=== PATIENT | female | born 1960 | race Caucasian/White ===

== ENCOUNTER 2017-09-04 17:21 | Emergency (ER) | END 2017-09-04 18:15 | disposition home or self-care (01) ==

== ENCOUNTER 2018-08-02 13:58 | Emergency (ER) | payer OTHER ==
[~2018-08-02] VITALS: Ht 147.3 cm; Wt 40.8 kg
[~2018-08-02 13:58] MED LIST: ALBIPROI INH; ALBU90OI INH; AMOCLA875 PO; AZIT500 PO; BACL10; BACL10 PO; BACL20 PO; CLON2 PO; CYCL10 PO; Clotrimazole15 GM TP; HYDACE10B PO; LIDO5TP TOP; LORA10 PO; MUPI2TC TOP; NAPR500; NAPR500 PO; NAPR550 PO; Norco 7.5-3251 EACH PO; PRED20 PO; PROM25 PO; Percocet 5-3251 EACH PO; Robaxin500 MG PO; SOMA350 MG PO; VICODIN HP 10-1 EACH PO; [UNRECOGNIZED DRUG - REMARK]; [UNRECOGNIZED DRUG - REMARK]
[2018-08-02 14:53] LABS: BASOPHILS ABSOLUTE AUTO 0.01 K/mm3 (0.00-0.23); BASOPHILS PERCENT AUTO 0 % (0-2); EOSINOPHILS PERCENT AUTO 0 % (0-6); Hematocrit 41.7 % (33.0-51.0); IMMATURE GRAN ABSOLUTE AUTO 0.06 K/mm3 (0.00-0.10); IMMATURE GRAN PERCENT AUTO 1 % (0-1); LYMPHOCYTES ABSOLUTE AUTO 0.81 K/mm3 (0.84-5.20); LYMPHOCYTES PERCENT AUTO 7 % (21-46); MONOCYTES ABSOLUTE AUTO 0.18 K/mm3 (0.16-1.47); MONOCYTES PERCENT AUTO 2 % (4-13); Mean Corpuscular HGB 31.9 pg (26.0-34.0); Mean Corpuscular HGB Conc 33.6 g/dL (31.5-36.5); Mean Platelet Volume 10.7 fL (9.1-12.4); NEUTROPHILS ABSOLUTE AUTO 10.33 K/mm3 (1.96-9.15); NEUTROPHILS PERCENT AUTO 91 % (41-73); Platelet Count 293 K/mm3 (150-400); RDW Coefficient Variation 11.9 % (11.7-14.2); RDW Standard Deviation 41.4 fL (35.1-46.3); Red Blood Cell Count 4.39 M/mm3 (3.80-5.20); White Blood Cell Count 11.39 K/mm3 (4.00-11.30)
[2018-08-02 14:54] LABS: Mean Corpuscular Volume 95 fL (80-100)
[2018-08-02 15:20] LABS: Alanine Aminotransfer (ALT/SGP 18 U/L (12-78); Albumin, Blood 3.5 g/dL (3.4-5.0); Albumin/Globulin Ratio 0.9 (0.8-1.8); Alk Phos 66 U/L (50-136); Anion Gap 8 mmol/L (6-16); Aspartate Aminotrans (AST/SGOT 19 U/L (12-37); Bilirubin, Total 0.4 mg/dL (0.1-1.0); Blood Urea Nitrogen 9 mg/dL (8-24); Bun/Creatinine Ratio 14.4 (12.0-20.0); CO2, Blood 27 mmol/L (21-32); Calcium, Blood 8.7 mg/dL (8.5-10.1); Chloride, Blood 106 mmol/L (98-108); Creatinine, Blood 0.63 mg/dL (0.40-1.00); Globulin, Blood 3.7 g/dL (2.2-4.0); Glomerular Filtration Rate >60 (60-); Glucose, Blood 112 mg/dL (70-99); Potassium, Blood 3.6 mmol/L (3.5-5.5); Sodium, Blood 141 mmol/L (136-145); Total Protein, Blood 7.2 g/dL (6.4-8.2)
[2018-08-02 16:00] LABS: Source, Urine Clean Catch
[2018-08-02 16:07] LABS: Bilirubin, Urine Neg (Neg); Blood, Urine 2+ (Neg); Glucose Qualitative, Urine Neg (Neg); Ketones, Urine Neg (Neg); Leukocyte Esterase, Urine 2+ (Neg); Nitrite, Urine Neg (Neg); Protein, Urine Neg (Neg); Specific Gravity, Urine 1.015 (1.003-1.022); Urobilinogen, Urine NORM (Normal)
[2018-08-02 16:19] LABS: Appearance, Urine Clear (Clear); Color, Urine Yellow (P-Yellow)
[2018-08-02 16:20] LABS: Bacteria Few /hpf; Squamous Epithelial Cells Few /hpf (Few); White Blood Cells, Urine 25-50 /hpf (0-5)
[2018-08-02] MEDS ORDERED: Norco 5-325 Ta1 EACH PO (17:55)
== END 2018-08-02 18:06 | disposition home or self-care (01) ==
LOC: ER 13:58
PROVIDERS: Physician Assistant
DX: R07.81 Pleurodynia (principal); Z88.5 Allergy status to narcotic agent; Z88.8 Allergy status to other drugs, medicaments and biological substances; Z79.899 Other long term (current) drug therapy; J44.9 Chronic obstructive pulmonary disease, unspecified; F41.9 Anxiety disorder, unspecified; F17.210 Nicotine dependence, cigarettes, uncomplicated
CPT/HCPCS: 36415; 76705; 80053; 81001; 85025; 87077; 87086; 87186; 99284-25; A9270-GY

== ENCOUNTER 2018-12-12 17:08 | Emergency (ER) | payer OTHER ==
[~2018-12-12] VITALS: Ht 162.6 cm; Wt 44.5 kg
[~2018-12-12 17:08] MED LIST changes: +Norco 5-325 Ta1 EACH PO
== END 2018-12-12 19:37 | disposition home or self-care (01) ==
LOC: ER 17:08
DX: S61.012A Laceration without foreign body of left thumb without damage to nail, initial encounter (principal); J44.9 Chronic obstructive pulmonary disease, unspecified; F17.210 Nicotine dependence, cigarettes, uncomplicated; Z88.5 Allergy status to narcotic agent; Z88.8 Allergy status to other drugs, medicaments and biological substances; Z79.899 Other long term (current) drug therapy; Z79.1 Long term (current) use of non-steroidal anti-inflammatories (NSAID); W22.8XXA Striking against or struck by other objects, initial encounter
CPT/HCPCS: 12002; 73130; 90471; 90714; 99283-25

== ENCOUNTER 2020-01-16 10:55 | Day surgery (SDC) | payer OTHER ==
[~2020-01-16] VITALS: Ht 64 cm; Wt 46.0 kg
--- NOTE | 2020-01-16 15:06 | NUR ---
01/16/20 1506 SHAKEEL LIZARRAGA IVDC AT 1500 WITH 800 ML LEFT AD DC ORSC.RDS
== END 2020-01-16 15:02 | disposition home or self-care (01) ==
LOC: ORSCSDS 10:55
PROVIDERS: Orthopaedic Surgery
PROC: 0PSH04Z Reposition Right Radius with Internal Fixation Device, Open Approach (ICD-10-PCS; principal; 2020-01-16 13:15)
DX: S52.571A Other intraarticular fracture of lower end of right radius, initial encounter for closed fracture (principal); I10 Essential (primary) hypertension; J44.9 Chronic obstructive pulmonary disease, unspecified; E03.9 Hypothyroidism, unspecified; G40.909 Epilepsy, unspecified, not intractable, without status epilepticus; F17.210 Nicotine dependence, cigarettes, uncomplicated; Z79.899 Other long term (current) drug therapy
CPT/HCPCS: J0171; J0330; J0690; J1100; J2250; J2405; J2704; J3010; J7120

== ENCOUNTER → 2020-02-17 | Outpatient (CLI) | payer OTHER | END | disposition home or self-care (01) | LOC: LAB SHORT 07:09 → PLD 07:09 | DX: R22.1 Localized swelling, mass and lump, neck (principal) | CPT/HCPCS: 88173 ==

== ENCOUNTER → 2020-04-07 | Outpatient (CLI) | payer OTHER ==
[2020-04-13 14:11] LABS: HPV 16 Negative (Negative); HPV 18 Negative (Negative); HPV OTHER HR TYPES Positive (Negative)
== END | disposition home or self-care (01) ==
LOC: LAB 16:34
PROVIDERS: Student in an Organized Health Care Education/Training Program
DX: Z01.419 Encounter for gynecological examination (general) (routine) without abnormal findings (principal)
CPT/HCPCS: 87624; 87625; G0145

== ENCOUNTER → 2020-10-18 | Outpatient (CLI) | payer OTHER | LOC: LAB 14:31 → LAB SHORT 14:31 | PROVIDERS: Family Medicine | DX: G89.4 Chronic pain syndrome (principal) | CPT/HCPCS: G0480 ==

== ENCOUNTER 2021-03-25 12:17 | Inpatient (IN) | payer OTHER ==
[~2021-03-25] VITALS: Ht 162.6 cm; Wt 47.3 kg
[~2021-03-25 12:17] MED LIST changes: -CLON2 PO
[2021-03-25 13:20] LABS: BASOPHILS ABSOLUTE AUTO 0.08 K/mm3 (0.00-0.23); BASOPHILS PERCENT AUTO 0 % (0-2); EOSINOPHILS ABSOLUTE AUTO 0.02 K/mm3 (0.00-0.68); EOSINOPHILS PERCENT AUTO 0 % (0-6); Hemoglobin 8.6 g/dL (11.5-16.0); IMMATURE GRAN ABSOLUTE AUTO 0.23 K/mm3 (0.00-0.10); IMMATURE GRAN PERCENT AUTO 1 % (0-1); LYMPHOCYTES ABSOLUTE AUTO 1.52 K/mm3 (0.84-5.20); LYMPHOCYTES PERCENT AUTO 7 % (21-46); MONOCYTES ABSOLUTE AUTO 1.09 K/mm3 (0.16-1.47); MONOCYTES PERCENT AUTO 5 % (4-13); Mean Corpuscular HGB 26.7 pg (26.0-34.0); Mean Corpuscular HGB Conc 33.1 g/dL (31.5-36.5); Mean Corpuscular Volume 81 fL (80-100); Mean Platelet Volume 9.2 fL (9.1-12.4); NEUTROPHILS ABSOLUTE AUTO 20.21 K/mm3 (1.96-9.15); NEUTROPHILS PERCENT AUTO 87 % (41-73); Platelet Count 492 K/mm3 (150-400); RDW Coefficient Variation 16.3 % (11.7-14.2); Red Blood Cell Count 3.22 M/mm3 (3.80-5.20); White Blood Cell Count 23.15 K/mm3 (4.00-11.30)
[2021-03-25 13:36] LABS: Albumin, Blood 1.4 g/dL (3.4-5.0); Albumin/Globulin Ratio 0.2 (0.8-1.8); Bilirubin, Total 0.9 mg/dL (0.1-1.0); Bun/Creatinine Ratio 7.9 (12.0-20.0); Calcium, Blood 7.8 mg/dL (8.5-10.1); Creatinine, Blood 3.68 mg/dL (0.40-1.00); Potassium, Blood 3.8 mmol/L (3.5-5.5); Total Protein, Blood 7.4 g/dL (6.4-8.2)
[2021-03-25 13:38] LABS: International Normalized Ratio 1.23; Prothrombin Time Results 12.7 Sec (9.7-11.5)
[2021-03-25 14:08] LABS: Source, Urine Catheter
[2021-03-25 14:20] LABS: Appearance, Urine Cloudy (Clear); Bilirubin, Urine Neg (Neg); Blood, Urine 5+ (Neg); Color, Urine Amber (P-Yellow); Glucose Qualitative, Urine Neg (Neg); Ketones, Urine Neg (Neg); Leukocyte Esterase, Urine 2+ (Neg); Nitrite, Urine Pos (Neg); Protein, Urine 3+ (Neg); Specific Gravity, Urine 1.015 (1.003-1.022); Urobilinogen, Urine 2+ (Normal)
[2021-03-25 14:32] LABS: Amorphous Light (0-Heavy); Red Blood Cells, Urine TNTC /hpf (0-2)
[2021-03-25 14:33] LABS: Bacteria Many /hpf; Squamous Epithelial Cells Many /hpf (Few)
[2021-03-25 14:36] LABS: U Amphetamine Screen Not Detected; U Barbituate Screen Not Detected; U Benzodiazapine Screen DETECTED; U Buprenorphine Screen Not Detected; U Cannabinoids Screen DETECTED; U Cocaine Screen Not Detected; U Methadone Screen Not Detected; U Methamphetamine Screen Not Detected; U Opiates Screen Not Detected; U Oxycodone Screen Not Detected; U Phencyclidine Screen Not Detected; U Propoxyphene Screen Not Detected
[2021-03-25 14:37] LABS: Influenza A, PCR NEGATIVE (NEGATIVE); Influenza B, PCR NEGATIVE (NEGATIVE); Resp Syncytial Virus, PCR NEGATIVE (NEGATIVE); SARS-Cov-2 (COVID-19) PCR, MMC NEGATIVE (NEGATIVE)
--- NOTE | 2021-03-25 21:56 | NUR ---
ADMITTED 60 FEMALE WITH DX OF PNEUMONIA. UPON VISUAL ASSESSMENT PT POINTED OUT "SORES" OF BILAT KNEES AND HER RIGHT ELBOW. CONSENTED TO PHOTIGRAPHING THEM, SEE PHOTOS IN CHART. ORIENTED TO USE OF CALL LIGHT. CALL LIGHT IN REACH
--- NOTE | 2021-03-26 02:46 | NUR ---
PT PLACED ON 2L OF O2. OXYGEN SATURATION DURING SLEEP WAS 87% NOW UP TO 92-93. PT HAS HX OF COPD.
[2021-03-26 04:51] LABS: BASOPHILS ABSOLUTE AUTO 0.05 K/mm3 (0.00-0.23); BASOPHILS PERCENT AUTO 0 % (0-2); EOSINOPHILS ABSOLUTE AUTO 0.16 K/mm3 (0.00-0.68); EOSINOPHILS PERCENT AUTO 1 % (0-6); Hematocrit 22.4 % (33.0-51.0); Hemoglobin 7.2 g/dL (11.5-16.0); IMMATURE GRAN ABSOLUTE AUTO 0.15 K/mm3 (0.00-0.10); IMMATURE GRAN PERCENT AUTO 1 % (0-1); LYMPHOCYTES PERCENT AUTO 7 % (21-46); MONOCYTES ABSOLUTE AUTO 1.01 K/mm3 (0.16-1.47); MONOCYTES PERCENT AUTO 6 % (4-13); Mean Corpuscular HGB 26.1 pg (26.0-34.0); Mean Corpuscular HGB Conc 32.1 g/dL (31.5-36.5); Mean Corpuscular Volume 81 fL (80-100); Mean Platelet Volume 9.2 fL (9.1-12.4); NEUTROPHILS ABSOLUTE AUTO 15.48 K/mm3 (1.96-9.15); NEUTROPHILS PERCENT AUTO 86 % (41-73); Platelet Count 383 K/mm3 (150-400); RDW Coefficient Variation 16.3 % (11.7-14.2); RDW Standard Deviation 47.8 fL (35.1-46.3); Red Blood Cell Count 2.76 M/mm3 (3.80-5.20); White Blood Cell Count 18.05 K/mm3 (4.00-11.30)
[2021-03-26 06:09] LABS: Anion Gap 11 mmol/L (6-16); Blood Urea Nitrogen 32 mg/dL (8-24); Bun/Creatinine Ratio 8.3 (12.0-20.0); CO2, Blood 26 mmol/L (21-32); Calcium, Blood 7.5 mg/dL (8.5-10.1); Chloride, Blood 97 mmol/L (98-108); Creatinine, Blood 3.85 mg/dL (0.40-1.00); Ferritin, Serum 193 ng/mL (8-252); Glomerular Filtration Rate 12 (60-); Glucose, Blood 144 mg/dL (70-99); Iron Serum 8 ug/dL (50-170); Percent Saturation 7.7 % (15.0-50.0); Potassium, Blood 3.5 mmol/L (3.5-5.5); Sodium, Blood 134 mmol/L (136-145); Total Iron Binding Capacity 104 ug/dL (250-450); Vancomycin, Random 16.6 ug/mL
--- NOTE | 2021-03-26 06:09 | NUR ---
PT ON 2L O2. DESATURATES WITH EXERTION. PT ADMITTED WITH PNEUMONIA. HX COPD. PT ON CONTINUOUS BIOX AND TELE. PT GIVEN SNACKS THROUGHOUT THE NIGHT. PT HAS SLEPT OFF AND ON TONIGHT. CALL LIGHT WITHIN REACH. LR RUNNING AT 125/HR. WILL CONTINUE TO MONITOR. PT INDEPENDENT TO BEDSIDE COMMODE.
--- NOTE | 2021-03-26 11:47 | NUR ---
ECHOCARDIOGRAM COMPLETE
--- NOTE | 2021-03-26 17:15 | NUR ---
SUMMARY PT RESTING QUIETLY IN BED, WAKES EASILY, PT HAS BEEN UP TO THE COMMODE WITH 1P ASSIST, OCC INCONTINENT OF STOOL, FRIEND IN TO VISIT, PT C/O BACK PAIN, DECLINED MEDS, GIVEN HEATING PAD, GI AND NEPHRO HAVE BEEN IN TO SEE THE PT, PLAN FOR UPPER ENDO TOMORROW, VSS, NO COMPLAINTS, WILL CONT TO MONITOR
--- NOTE | 2021-03-27 03:42 | NUR ---
SHIFT SUMMARY PT NOW ON 3.5L O2 AND CONTINUOUS BIOX IS 93% PT HISTORY OF COPD AND PNEUMONIA. PT HAS WET COUGH WITH SPUTUM. PT USING BEDSIDE COMMODE WITH ASSISTANCE DUE TO ALL THE CORDS ATTACHED TO HER. CALL LIGHT WITHIN REACH AND WILL CONTINUE TO MONITOR. PT GIVEN TWO NEBULIZERS ON THIS SHIFT.
[2021-03-27 04:55] LABS: BASOPHILS ABSOLUTE AUTO 0.05 K/mm3 (0.00-0.23); BASOPHILS PERCENT AUTO 0 % (0-2); EOSINOPHILS ABSOLUTE AUTO 0.25 K/mm3 (0.00-0.68); EOSINOPHILS PERCENT AUTO 1 % (0-6); Hematocrit 20.9 % (33.0-51.0); Hemoglobin 6.9 g/dL (11.5-16.0); IMMATURE GRAN PERCENT AUTO 1 % (0-1); LYMPHOCYTES ABSOLUTE AUTO 1.29 K/mm3 (0.84-5.20); LYMPHOCYTES PERCENT AUTO 7 % (21-46); MONOCYTES ABSOLUTE AUTO 1.17 K/mm3 (0.16-1.47); MONOCYTES PERCENT AUTO 7 % (4-13); Mean Corpuscular HGB 26.8 pg (26.0-34.0); Mean Corpuscular Volume 81 fL (80-100); Mean Platelet Volume 9.4 fL (9.1-12.4); NEUTROPHILS ABSOLUTE AUTO 14.65 K/mm3 (1.96-9.15); NEUTROPHILS PERCENT AUTO 83 % (41-73); Platelet Count 374 K/mm3 (150-400); RDW Coefficient Variation 16.3 % (11.7-14.2); RDW Standard Deviation 48.4 fL (35.1-46.3); Red Blood Cell Count 2.57 M/mm3 (3.80-5.20); White Blood Cell Count 17.61 K/mm3 (4.00-11.30)
[2021-03-27 05:40] LABS: Albumin, Blood 0.9 g/dL (3.4-5.0); Anion Gap 10 mmol/L (6-16); Blood Urea Nitrogen 37 mg/dL (8-24); Bun/Creatinine Ratio 8.5 (12.0-20.0); CO2, Blood 25 mmol/L (21-32); Calcium, Blood 7.8 mg/dL (8.5-10.1); Chloride, Blood 98 mmol/L (98-108); Creatinine, Blood 4.33 mg/dL (0.40-1.00); Glomerular Filtration Rate 10 (60-); Glucose, Blood 102 mg/dL (70-99); Magnesium, Blood 1.3 mg/dL (1.6-2.4); Phosphorus, Blood 7.3 mg/dL (2.5-4.9); Potassium, Blood 4.2 mmol/L (3.5-5.5); Sodium, Blood 133 mmol/L (136-145); Vancomycin, Random 25.5 ug/mL
[2021-03-27 13:10] LABS: Hematocrit 25.5 % (33.0-51.0); Hemoglobin 8.4 g/dL (11.5-16.0)
--- NOTE | 2021-03-27 17:38 | NUR ---
SUMMARY PT SITTING UP IN BED EATING DINNER, PT HAS BEEN COOPERATIVE WITH CARE, VERY RESTLESS AT TIMES, PT 1P ASSIST UP TO THE BEDSIDE COMMODE, PT DID RECIEVE 1 UNIT OF BLOOD TODAY, ADDISON WELL, DAUGHTER CAME IN TO VISIT, VSS, NO COMPLAINTS, WILL CONT TO MONITOR
--- NOTE | 2021-03-28 03:38 | NUR ---
SHIFT SUMMARY PLAN FOR UPPER ENDO TODAY. PT NPO AFTER MIDNIGHT. PT ASKS FOR SOMETHING TO DRINK, OFFERED LEMON SWABS. PT OUT OF BED EARLIER WITHOUT WAITING FOR ASSISTANCE AND PULLED OUT IV. NEW IV PLACED BY JUANCARLOS MOCTEZUMA. PT NEEDS TO BE REMINDED TO KEEP OXYGEN IN HER NARES AND TO BE CAREFUL OF HER TUBING. PT ON TELE AND CONTINUOS BIOX. SINUS RHYTHM RATE OF 98. PT UPSET THAT SHE IS NOT ABLE TO HAVE ANYTHING TO EAT OR DRINK UNTIL AFTER HER PROCEDURE TODAY. LR RUNNING AT 75/HR. PT VOMITED A FEW TIMES DURING THE BEGINNING OF THE SHIFT, BUT HAS SINCE STOPPED. PT GIVEN ZOFRAN AT 1800. CALL LIGHT IS WITHIN REACH AND PT WILL CONTINUE TO BE MONITORED.
[2021-03-28 04:37] LABS: Hematocrit 24.7 % (33.0-51.0); Hemoglobin 8.1 g/dL (11.5-16.0)
[2021-03-28 05:16] LABS: Anion Gap 10 mmol/L (6-16); Blood Urea Nitrogen 42 mg/dL (8-24); Bun/Creatinine Ratio 9.4 (12.0-20.0); CO2, Blood 24 mmol/L (21-32); Calcium, Blood 7.9 mg/dL (8.5-10.1); Chloride, Blood 96 mmol/L (98-108); Creatinine, Blood 4.45 mg/dL (0.40-1.00); Glomerular Filtration Rate 10 (60-); Glucose, Blood 130 mg/dL (70-99); Magnesium, Blood 1.4 mg/dL (1.6-2.4); Sodium, Blood 130 mmol/L (136-145)
[2021-03-28 05:18] LABS: Phosphorus, Blood 8.3 mg/dL (2.5-4.9)
[2021-03-28 07:10] LABS: HIV SCREEN 4TH GENERATION WRFX Non Reactive (Non Reactive)
--- NOTE | 2021-03-28 15:13 | NUR ---
03/28/21 1513 Sahara Sanchez MONITORS PLACED. SEE ANESTHESIA RECORD.
--- NOTE | 2021-03-28 16:09 | NUR ---
PT ARRIVED BACK FROM DAY SURGERY AT APPROXIMATELY 1600. PT ALERT AND ORIENTED. SITTING UP IN BED CALLING HER DAUGHTER. PLEASANT. WILL CONTINUE TO MONITOR.
--- NOTE | 2021-03-28 19:33 | NUR ---
SHIFT SUMMARY PT HAD AN EGD TODAY WITH DR. LIU TO ATTEMPT TO DETERMINE THE REASON FOR BLOODY STOOLS. PT HAS BEEN ANXIOUS/IRRITABLE T/O THE DAY. SHE FREQUENTLY HAS DIFFICULTY MANAGING HER LINES AND TUBES. PT ENCOURAGED AND EDUCATED TO CALL FOR ASSISTANCE. PT PULLS OFF HER O2 FREQUENTLY AND HER O2 SATURATIONS DROP TO MID 80'S, SHE RECOVERS QUICKLY ONCE O2 IS REPLACED. PT IS A SBA TO THE BSC TO ASSIST WITH LINES AND TUBES. VSS. REPORT GIVEN TO CHRISTIANO BAUER.
--- NOTE | 2021-03-29 04:51 | NUR ---
PATIENT HAS BEEN IMPULSIVE ALL SHIFT. a%O X4 BUT CONFUSED AT TIMES. PATIENT TEMOVED TELEMETRY, IV LINE, PULSE OX AND O2. REPEATEDLY SET OFF BED ALARM. WAS VERBALLY AGGRESSIVE TOWARDS NURSING STAFF USING EXPLICATIVES. PATIENT ASKED FOR MEDICATION FOR A HEADACHE AND REFUSED THE TYLENOL SHE HAD AVAILABLE. ALSO REFUSED HER 0600 PROTONIX.
[2021-03-29 05:38] LABS: Hematocrit 25.5 % (33.0-51.0); Hemoglobin 8.2 g/dL (11.5-16.0)
[2021-03-29 06:30] LABS: Albumin, Blood 1.2 g/dL (3.4-5.0); Anion Gap 13 mmol/L (6-16); Blood Urea Nitrogen 50 mg/dL (8-24); Bun/Creatinine Ratio 9.8 (12.0-20.0); CO2, Blood 21 mmol/L (21-32); Calcium, Blood 8.2 mg/dL (8.5-10.1); Chloride, Blood 97 mmol/L (98-108); Creatinine, Blood 5.12 mg/dL (0.40-1.00); Glomerular Filtration Rate 9 (60-); Glucose, Blood 109 mg/dL (70-99); Magnesium, Blood 2.4 mg/dL (1.6-2.4); Potassium, Blood 5.8 mmol/L (3.5-5.5); Sodium, Blood 131 mmol/L (136-145)
[2021-03-29 06:56] LABS: Phosphorus, Blood 9.2 mg/dL (2.5-4.9)
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
--- NOTE | 2021-03-30 05:02 | NUR ---
A&OX4, ANXIOUS AND IMPULSIVE, CAN BE CANTANKEROUS WITH STAFF. PRODUCTIVE COUGH PRODUCING PINK TINGED SPUTUM, 4L OF 02, MORGAN COARSE CRACKELS AND INSPIRATORY WHEEZES. PRN BREATHING TREATMENTS GIVEN BY RT. NS@50. 24 HOUR URINE COLLECTION STARTED AT 0135AM. PRN TYLENOL AND KPAD FOR COMPLAINTS OF HEADACHE AND BACK PAIN. KLONOPIN FOR ANXIETY.
[2021-03-30 09:11] LABS: HCV LOG10 5.736 (.); HEPATITIS C QUANTITATION 544000 IU/mL (.)
[2021-03-30 13:32] LABS: Bun/Creatinine Ratio 12.4 (12.0-20.0); Calcium, Blood 8.5 mg/dL (8.5-10.1); Creatinine, Blood 5.17 mg/dL (0.40-1.00); Potassium, Blood 4.9 mmol/L (3.5-5.5)
--- NOTE | 2021-03-30 15:27 | NUR ---
PT STATES NOT GETTING CYCLOBENZAPRINE. USUALLY TAKES TWICE DAILY. PT STATES DOES NOT HAVE ALLERGY, DOES NOT KNOCK HER OUT. CALLED DR MATHIS. ORDERS GIVEN
--- NOTE | 2021-03-30 18:43 | NUR ---
PT SOME ANXIOUS TODAY. SOME IMPROVEMENT WITH DISCUSSION ABOUT STEROIDS. HAS BEEN MOSTLY PLEASANT TODAY. DOES OCC PULL N/C OFF AND DESATS TO MID 80'S QUICKLY. RECOVERS WHEN PLACED BACK ON. DID GET MUSCLE RELAXANT TODAY. STATES DID MUCH TO HELP BACK PAIN. NO NEW CONCERNS NOTED. BED IN LOW POSITION, CALL LITE IN REACH, CALLS APROP
[2021-03-30] MEDS ORDERED: CLON.5 PO (19:06)
[2021-03-30] MEDS ORDERED: FLUTICASONE-SA1 EAC1 INH (19:07)
[2021-03-30] MEDS ORDERED: NAPR500 PO (19:07)
[2021-03-30] MEDS ORDERED: SPIRIVA RESPIMAT4 G3 INH (19:07)
[2021-03-30] MEDS ORDERED: LORA10ER PO (19:08)
[2021-03-30] MEDS ORDERED: MONT10T PO (19:11)
[2021-03-30] MEDS ORDERED: CYCLOBENZAPRINE5 MG PO (19:12)
[2021-03-30] MEDS ORDERED: GABA300 PO (19:13)
[2021-03-30] MEDS ORDERED: IPRAT-ALBUT 0.5-3 ML NEB (19:14)
--- NOTE | 2021-03-31 04:58 | NUR ---
PT IS A/OX3. SHE DOES NOT FOLLOW COMMANDS ABOUT KEEPING HER O2 ON AND DOES NOT USE THE CALL LIGHT. TELE: SINUSTACH/104. IV LF AC INFUSING SODIUM BICARB/D5 @ 50ml/hr. ALTHOUGH IMPULSIVE, SHE IS FAIRLY STEADY ON HER FEET. SHE DOES HAVE A COMPLETE 24HR URINE CATCH.
[2021-03-31 05:51] LABS: Hemoglobin 8.2 g/dL (11.5-16.0)
[2021-03-31 06:52] LABS: Magnesium, Blood 2.5 mg/dL (1.6-2.4)
[2021-03-31 07:01] LABS: Albumin, Blood 1.4 g/dL (3.4-5.0); Anion Gap 10 mmol/L (6-16); Blood Urea Nitrogen 67 mg/dL (8-24); Bun/Creatinine Ratio 12.8 (12.0-20.0); CO2, Blood 26 mmol/L (21-32); Calcium, Blood 7.7 mg/dL (8.5-10.1); Chloride, Blood 96 mmol/L (98-108); Creatinine, Blood 5.25 mg/dL (0.40-1.00); Glomerular Filtration Rate 8 (60-); Glucose, Blood 114 mg/dL (70-99); Potassium, Blood 5.2 mmol/L (3.5-5.5); Sodium, Blood 132 mmol/L (136-145)
[2021-03-31 07:12] LABS: Phosphorus, Blood 8.3 mg/dL (2.5-4.9)
--- NOTE | 2021-03-31 17:44 | NUR ---
SHIFT SUMMARY PATIENT MEDICATED X1 FOR HEADACHE AND X1 FOR ANXIETY. MAINATINING OXYGEN SATURATION ABOVE 92% ON 4L/NC. DESATS VERY QUICKLY WITH ACTIVITY. REQUIRES REMINDERS TO LEAVE NC IN PLACE. PATIETN EMOTIONAL AFTER CODE STATUS AND PROGNOSIS DISCUSSION WITH DR. FADI CORNEJO TO BSC, EATING AND RINKING WELL. PLEASANT AND COOPERATIVE WITH CARE. WORKED WITH OT TODAY.
--- NOTE | 2021-04-01 04:56 | NUR ---
SHIFT SUMMARY PARMJIT: PARMJIT ASKED AND RECEIVED HER ANXIETY MEDS AT 2100. SHE WAS ADMONISTERED TESSALON AND ROBITUSSIN PRN FOR COUGH. SHE TENDS TO REMOVE HER NC AND USUALLY SPO2 GOES IN THE LOW 80'S. SHE REMAINED STABLE DURING THE SHIFT EXCEPT FOR THE FREQUENT COUGH. PRN MEDS PROVIDE RELIEF FOR A COUPLE OF HOURS APPARENTLY.
[2021-04-01 06:13] LABS: Bun/Creatinine Ratio 12.9 (12.0-20.0); Calcium, Blood 7.7 mg/dL (8.5-10.1); Creatinine, Blood 5.02 mg/dL (0.40-1.00); Potassium, Blood 4.6 mmol/L (3.5-5.5)
--- NOTE | 2021-04-01 16:25 | NUR ---
Late Entry from 03/30/2021 at 1500: Received referral from [facility] Wind Technician (Vashti Palafox) on 03/30/2021. Patient was admitted to [facility] on 03/25/2021 due to pneumonia in both lungs. Patient is to discharge with orders for home health and [facility]. Met with patient in room to further discuss the above. Patient declines home health services at this time stating "I have to ask Sarah (who owns the house) if it's ok. I also have five dogs". Informed patient that if they changed their mind they could always request services through their primary care provider. No further interventions required. Nivia Choi Referral Liaison
--- NOTE | 2021-04-01 16:54 | NUR ---
SHIFT SUMMARY PATIENT MEDICATED X1 FOR HEADACHE AND X1 FOR ANXIETY. UP SBA TO BSC. 4L/NC TO MAINTAIN OXYGEN SATURATION ABOVE 92%. DYSPNEIC WITH ACTIVITY. EATING AND DRINKING WELL. DR. TOBAR CONSULTED.
--- NOTE | 2021-04-02 04:23 | NUR ---
SHIFT SUMMARY PARMJIT: PARMJIT WAS COUGHING AT THE BEGINNING OF THE SHIFT AND WAS A LITTLE BIT ANXIOUS. SHE WAS ADMINISTERED HER 2100 SCHEDULED RX ALONG WITH HER PRN'S FOR COUGH AND ANXIETY. SHE HAD TO BE REMINDED A COUPLE OF TIMES TO KEEP HER NC ON. WENT TO SLEEP AROUND MIDNIGHT. REMAINED STABLE ALL NIGHT.
[2021-04-02 05:28] LABS: BASOPHILS ABSOLUTE AUTO 0.02 K/mm3 (0.00-0.23); BASOPHILS PERCENT AUTO 0 % (0-2); EOSINOPHILS ABSOLUTE AUTO 0.34 K/mm3 (0.00-0.68); EOSINOPHILS PERCENT AUTO 5 % (0-6); Hemoglobin 7.5 g/dL (11.5-16.0); IMMATURE GRAN ABSOLUTE AUTO 0.33 K/mm3 (0.00-0.10); IMMATURE GRAN PERCENT AUTO 4 % (0-1); LYMPHOCYTES ABSOLUTE AUTO 0.98 K/mm3 (0.84-5.20); LYMPHOCYTES PERCENT AUTO 13 % (21-46); MONOCYTES ABSOLUTE AUTO 0.67 K/mm3 (0.16-1.47); MONOCYTES PERCENT AUTO 9 % (4-13); Mean Corpuscular HGB Conc 31.3 g/dL (31.5-36.5); Mean Corpuscular Volume 86 fL (80-100); Mean Platelet Volume 8.6 fL (9.1-12.4); NEUTROPHILS ABSOLUTE AUTO 5.09 K/mm3 (1.96-9.15); NEUTROPHILS PERCENT AUTO 69 % (41-73); Platelet Count 388 K/mm3 (150-400); RDW Coefficient Variation 16.8 % (11.7-14.2); RDW Standard Deviation 52.6 fL (35.1-46.3); Red Blood Cell Count 2.78 M/mm3 (3.80-5.20); White Blood Cell Count 7.43 K/mm3 (4.00-11.30)
[2021-04-02 06:01] LABS: Albumin, Blood 1.1 g/dL (3.4-5.0); Anion Gap 6 mmol/L (6-16); Blood Urea Nitrogen 61 mg/dL (8-24); Bun/Creatinine Ratio 13.8 (12.0-20.0); CO2, Blood 31 mmol/L (21-32); Calcium, Blood 7.5 mg/dL (8.5-10.1); Chloride, Blood 103 mmol/L (98-108); Creatinine, Blood 4.41 mg/dL (0.40-1.00); Glomerular Filtration Rate 10 (60-); Glucose, Blood 97 mg/dL (70-99); Potassium, Blood 3.8 mmol/L (3.5-5.5); Sodium, Blood 140 mmol/L (136-145)
[2021-04-02 06:03] LABS: Phosphorus, Blood 4.9 mg/dL (2.5-4.9)
[2021-04-02 09:57] LABS: PCO2 Arterial 51.3 mmHg (35-45); PO2 Arterial 64.8 mmHg (80-100); pH Blood Arterial 7.39 (7.35-7.45)
--- NOTE | 2021-04-02 18:24 | NUR ---
SHIFT SUMMARY PATIENT IS ALERT AND ORIENT X3, PLEASANT AND COOPERATIVE WITH CARE. PATIENT WAS SLEEPY AT THE START OF SHIFT AND LESS ORIENTED. PATIENT DID IMPROVE THE DAY PROGRESSED. THE PATIENT IS ON 3 LPM OF 02 VIA NASAL CANNULA SATTING AT 93% THE PATIENT IS ON TELE. SINUS TACH THIS SHIFT. CONTINENT. 1 PERSON SBA TO BSC. PATIENT WAS MEDICATED ONCE WITH PRN COUGH SUPPRESSENT. PATIENT'S DAUGHTER WOULD LIKE TO BE INFORMED OF ANY DECSIONS REGARDING THE PATIENT'S DISCHARGE PLAN. I WILL PASS IT ON IN REPORT THIS EVENING. PATIENT IS IN BED AT THIS TIME. CALL LIGHT WITHIN REACH. BED IN LOWEST POSITION.
--- NOTE | 2021-04-03 04:34 | NUR ---
SHIFT SUMMARY PARMJIT: PARMJIT WAS TACHYCARDIC AT THE BEGINNING OF THE SHIFT. AT AROUND 2030 HER HR WENT UP TO 180 SHE WAS USING THE BEDSIDE COMMODE. DR. ALONZO WAS ALERTED AND A 12 LEADS EKG WAS ORDERED. EKG SHOWED SINUS TACHY. DR. ALONZO ADVISED TO TREAT HER FOR HER ANXIETY AND PAIN SHE REQUESTED. SHE WAS ADMINISTERED MUCINEX AND TESALON PEARLS FOR HER INTERMITTENT INTENSE WET COUGHING THROUGHOUT THE NIGHT
[2021-04-03 05:53] LABS: Hematocrit 25.4 % (33.0-51.0); Hemoglobin 7.9 g/dL (11.5-16.0)
[2021-04-03 07:45] LABS: Albumin, Blood 1.3 g/dL (3.4-5.0); Anion Gap 5 mmol/L (6-16); Blood Urea Nitrogen 50 mg/dL (8-24); Bun/Creatinine Ratio 13.1 (12.0-20.0); CO2, Blood 32 mmol/L (21-32); Calcium, Blood 7.7 mg/dL (8.5-10.1); Chloride, Blood 102 mmol/L (98-108); Creatinine, Blood 3.81 mg/dL (0.40-1.00); Glomerular Filtration Rate 12 (60-); Glucose, Blood 97 mg/dL (70-99); Magnesium, Blood 1.8 mg/dL (1.6-2.4); Potassium, Blood 3.5 mmol/L (3.5-5.5); Sodium, Blood 139 mmol/L (136-145)
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
--- NOTE | 2021-04-03 23:07 | NUR ---
PATIENT OUT FOR 2V CXR AND BACK IN ROOM. TOLERATED WELL.
--- NOTE | 2021-04-04 03:17 | NUR ---
SHIFT SUMMARY PATIENT HAD NO ACUTE CHANGES OBSERVED. AXOX 4 AND SBA TO BSC. ON 3L O2 NC. PIV REMAINS INTACT. NS INFUSING AT 50 mL/HR. SUPERCALENDER OPERATOR REPORTS ST IN LOW HUNDREDS AND 120'S WITH ACTIVITY. PATIENT WENT TO IMAGING VIA W/C FOR CXR-2V. TESSALON 100 MG GIVEN FOR COUGH AND KLONOPIN 0.5 MG FOR ANXIETY. DENIES PAIN AND N/V. AFEBRILE. ABLE TO SLEEP MOST OF SECOND PART OF SHIFT. CALL LIGHT IN REACH. BED IN LOWEST POSITION AND ALARM ACTIVATED, IMPULSIVE. WILL CONTINUE TO MONITOR UNTIL DAY SHIFT NURSE ASSUMES CARE.
[2021-04-04 05:09] LABS: BASOPHILS ABSOLUTE AUTO 0.03 K/mm3 (0.00-0.23); BASOPHILS PERCENT AUTO 0 % (0-2); EOSINOPHILS PERCENT AUTO 3 % (0-6); Hematocrit 23.7 % (33.0-51.0); Hemoglobin 7.5 g/dL (11.5-16.0); IMMATURE GRAN ABSOLUTE AUTO 0.43 K/mm3 (0.00-0.10); IMMATURE GRAN PERCENT AUTO 4 % (0-1); LYMPHOCYTES ABSOLUTE AUTO 1.34 K/mm3 (0.84-5.20); LYMPHOCYTES PERCENT AUTO 12 % (21-46); MONOCYTES ABSOLUTE AUTO 1.01 K/mm3 (0.16-1.47); MONOCYTES PERCENT AUTO 9 % (4-13); Mean Corpuscular HGB 27.2 pg (26.0-34.0); Mean Corpuscular HGB Conc 31.6 g/dL (31.5-36.5); Mean Corpuscular Volume 86 fL (80-100); Mean Platelet Volume 9.3 fL (9.1-12.4); NEUTROPHILS PERCENT AUTO 72 % (41-73); Platelet Count 403 K/mm3 (150-400); RDW Coefficient Variation 17.4 % (11.7-14.2); RDW Standard Deviation 53.1 fL (35.1-46.3); Red Blood Cell Count 2.76 M/mm3 (3.80-5.20); White Blood Cell Count 10.91 K/mm3 (4.00-11.30)
--- NOTE | 2021-04-04 05:17 | NUR ---
GI PANEL COLLECTED AND SENT TO LAB
--- NOTE | 2021-04-04 05:32 | NUR ---
PEARLER REPORTS HR ELEVATED UP TO 130. PATIENT WAS UP TO BEDSIDE COMMODE. HR INCREASES WITH ACTIVITY. WCTM.
[2021-04-04 06:32] LABS: Albumin, Blood 1.2 g/dL (3.4-5.0); Anion Gap 6 mmol/L (6-16); Blood Urea Nitrogen 42 mg/dL (8-24); Bun/Creatinine Ratio 12.5 (12.0-20.0); CO2, Blood 33 mmol/L (21-32); Calcium, Blood 7.6 mg/dL (8.5-10.1); Chloride, Blood 101 mmol/L (98-108); Creatinine, Blood 3.37 mg/dL (0.40-1.00); Glomerular Filtration Rate 14 (60-); Glucose, Blood 117 mg/dL (70-99); Magnesium, Blood 1.5 mg/dL (1.6-2.4); Phosphorus, Blood 3.9 mg/dL (2.5-4.9); Potassium, Blood 2.8 mmol/L (3.5-5.5); Sodium, Blood 140 mmol/L (136-145)
[2021-04-04 09:21] LABS: Adenovirus F 40/41 Not Detected (NOT DETECT); Astrovirus Not Detected (NOT DETECT); Campylobacter Sp Not Detected (NOT DETECT); Cryptosporidium Not Detected (NOT DETECT); Cyclospora Cayetanensis Not Detected (NOT DETECT); E. Coli O157 Not Detected (NOT DETECT); Entamoeba Histolytica Not Detected (NOT DETECT); Enteroaggregative E. coli-EAEC Not Detected (NOT DETECT); Enteropathogenic E. coli-EPEC Not Detected (NOT DETECT); Enterotoxigenic E. coli-ETEC Not Detected (NOT DETECT); Giardia Lamblia Not Detected (NOT DETECT); Norovirus GI/GII Not Detected (NOT DETECT); Plesiomonas Shigelloides Not Detected (NOT DETECT); Rotavirus A Not Detected (NOT DETECT); Salmonella Sp Not Detected (NOT DETECT); Sapovirus Not Detected (NOT DETECT); Shiga Toxin-prod E. coli-STEC Not Detected (NOT DETECT); Shigella/Enteroin E. coli-EIEC Not Detected (NOT DETECT); Vibrio Cholerae Not Detected (NOT DETECT); Vibrio Sp Not Detected (NOT DETECT); Yersinia Enterocolitica Not Detected (NOT DETECT)
--- NOTE | 2021-04-04 18:17 | NUR ---
SHIFT SUMMARY PATIENT IS ALERT AND ORIENTED X3, PLEASANT AND COOPERATIVE WITH CARE. PATIENT CAN BECOME CONFUSED AT TIMES. SOMETIMES IMPULSIVE. PATIENT RECEIVED MAG AND POTASSIUM THIS SHIFT. ON 3LPM VIA NASAL CANNULA SATTING ABOVE 90% VSS. NO ACUTE CHANGES THIS SHIFT. WILL CONTINUE TO CARE FOR UNTIL SHIFT REPORT IS GIVEN TO ONCOMING NURSE.
--- NOTE | 2021-04-05 02:57 | NUR ---
SHIFT SUMMARY: PATIENT A&OX3-4, ANXIOUS AND IMPLUSIVE AT TIMES. PRN KLONOPIN ADMINISTERED PER EMAR. PATIENT NOW ON 2L NC SATING > 90%. COURSE CRACKELS. NO DYSPNEA. TELE = NSR 100, INCREASES WHEN AMBULATING. SBA TO BSC. WOUNDS TO BLE AND ELBOWS,ADMINISTERED BACTROBAN PER EMAR. PALE/ASHEN. NOTED HEMATURIA, PATIENT STATES THIS HAS BEEN OCCCURING FOR 3 DAYS AND MD IS AWARE.
[2021-04-05 07:44] LABS: Albumin, Blood 1.2 g/dL (3.4-5.0); Anion Gap 2 mmol/L (6-16); Blood Urea Nitrogen 34 mg/dL (8-24); CO2, Blood 34 mmol/L (21-32); Calcium, Blood 7.1 mg/dL (8.5-10.1); Chloride, Blood 100 mmol/L (98-108); Creatinine, Blood 3.09 mg/dL (0.40-1.00); Glomerular Filtration Rate 15 (60-); Glucose, Blood 99 mg/dL (70-99); Magnesium, Blood 1.9 mg/dL (1.6-2.4); Phosphorus, Blood 4.1 mg/dL (2.5-4.9); Potassium, Blood 3.2 mmol/L (3.5-5.5); Sodium, Blood 136 mmol/L (136-145)
[2021-04-05 10:09] LABS: M-SPIKE, % Not Observed % (Not Observed)
--- NOTE | 2021-04-05 13:58 | NUR ---
Reviewed diet recommendations for patients with CKD not on dialysis. Encouraged pt to limit sodium intake and avoid excessive protein intake. Pt K has been low lately but was high earlier in hospital stay. Discussed with pt that she does not need to limit K at this time, but may need to in the future if her K continues to run high. Pt had high Phos on admit but it dropped to WNL after starting Phos binders. Discussed with pt the role of Phos binders and that she may not need to limit dietary Phos if she goes home on them. Reviewed food sources of the nutrients discussed and ways to limit nutrients of concern. Pt reported that she drinks 5-6 sodas at home (typically coke) and does not feel like she can fully give up dark colored sodas despite the higher Phos content. Pt was amenable to the suggestion to replace most of her sodas with a lower Phos option and enjoying just 1 coke per day.
--- NOTE | 2021-04-05 17:34 | NUR ---
SHIFT SUMMARY PATIENT IS ALERT AND ORIENTED X2-X3, SOME CONFUSION AT TIMES. URINE CULTURE SENT OFF THIS MORNING. HOME O2 EVAL DONE THIS SHIFT. PATIENT IS 2LPM OF 02 VIA NASAL CANNULA AT THIS TIME. PATIENT IS CONTINENT. 1 ASSIST TO THE BSC. PATIENT RECEIVED ONE DOSE OF POTASSIUM THIS SHIFT. VSS. TELE SINUS TACH IN 100'S. WILL CALL TO MAKE NEEDS KNOWN. CALL LIGHT WITHIN REACH. PATIENT MAY POSSIBLY DISCHARGE HOME TOMORROW.
[2021-04-06 05:16] LABS: BASOPHILS ABSOLUTE AUTO 0.03 K/mm3 (0.00-0.23); BASOPHILS PERCENT AUTO 0 % (0-2); EOSINOPHILS ABSOLUTE AUTO 0.04 K/mm3 (0.00-0.68); EOSINOPHILS PERCENT AUTO 0 % (0-6); Hematocrit 24.5 % (33.0-51.0); Hemoglobin 7.5 g/dL (11.5-16.0); IMMATURE GRAN ABSOLUTE AUTO 0.15 K/mm3 (0.00-0.10); IMMATURE GRAN PERCENT AUTO 2 % (0-1); LYMPHOCYTES ABSOLUTE AUTO 0.72 K/mm3 (0.84-5.20); LYMPHOCYTES PERCENT AUTO 8 % (21-46); MONOCYTES ABSOLUTE AUTO 0.27 K/mm3 (0.16-1.47); MONOCYTES PERCENT AUTO 3 % (4-13); Mean Corpuscular HGB 26.2 pg (26.0-34.0); Mean Corpuscular HGB Conc 30.6 g/dL (31.5-36.5); Mean Corpuscular Volume 86 fL (80-100); Mean Platelet Volume 9.4 fL (9.1-12.4); NEUTROPHILS ABSOLUTE AUTO 7.92 K/mm3 (1.96-9.15); NEUTROPHILS PERCENT AUTO 87 % (41-73); Platelet Count 346 K/mm3 (150-400); RDW Coefficient Variation 17.2 % (11.7-14.2); RDW Standard Deviation 53.9 fL (35.1-46.3); Red Blood Cell Count 2.86 M/mm3 (3.80-5.20); White Blood Cell Count 9.13 K/mm3 (4.00-11.30)
[2021-04-06 05:46] LABS: Albumin, Blood 1.3 g/dL (3.4-5.0); Albumin/Globulin Ratio 0.3 (0.8-1.8); Bilirubin, Total 0.6 mg/dL (0.1-1.0); Bun/Creatinine Ratio 9.2 (12.0-20.0); Calcium, Blood 7.9 mg/dL (8.5-10.1); Creatinine, Blood 3.04 mg/dL (0.40-1.00); Globulin, Blood 4.2 g/dL (2.2-4.0); Magnesium, Blood 1.5 mg/dL (1.6-2.4); Phosphorus, Blood 4.2 mg/dL (2.5-4.9); Potassium, Blood 3.4 mmol/L (3.5-5.5); Total Protein, Blood 5.5 g/dL (6.4-8.2)
--- NOTE | 2021-04-06 06:28 | NUR ---
SHIFT SUMMARY: A&OX4 ANXIOUS, PRN KLONOPIN GIVEN. REMAINS ON 2L SAT REAMIN >90% WILL DESAT WHEN SHE REMOVES HER NASAL CANNULA. LUNGS REMAIN COARSE. TELE ST 100-110 BURSTS INTO 130S WHEN AMBULATING TO BSC. PATIENT IS EAGER TO DC HOME.
[2021-04-06] MEDS ORDERED: BENZ100A PO (15:00)
[2021-04-06] MEDS ORDERED: DIFLUCAN100 MG PO (15:02)
[2021-04-06] MEDS ORDERED: FOLI1 PO (15:03)
[2021-04-06] MEDS ORDERED: GABA100 PO (15:03)
[2021-04-06] MEDS ORDERED: MUPIROCIN1 G1 TOP (15:05)
[2021-04-06] MEDS ORDERED: NICO21TP TOP (15:06)
[2021-04-06] MEDS ORDERED: OMEP20ER PO (15:07)
[2021-04-06] MEDS ORDERED: Prednisone10 MG PO (15:09)
[2021-04-06] MEDS ORDERED: TRAM50 PO (15:10)
[2021-04-06] MEDS ORDERED: TRAZ50 PO (15:10)
--- NOTE | 2021-04-06 16:03 | NUR ---
Per Dr. Lora discharge appropriate on: 04/06/21. Patient does not oppose to discharge. Patient is discharged to her residence in [place]. Patient lives with her boyfriend of 30 plus years. Transportation to residence provided by family friend (Arnaldo). Spoke with Belen and she is agreeable to Home Health services. [facility] (previous choice) contacted to reinitiate services. Explained purpose of Home Health. DME: Oxygen ordered per Home Oxygen Eval. [employer]y kiosk sales representative was in room demonstrating use. Shey ([employer]) contacted me for a number to contact patient; patient s cell phone ([phone]) and daughter s number (Reo [phone]) given to kiosk sales representative. Patient has a support network of her boyfriend Jh and friend Chente (lives in an in property). Daughter Antonella also provides support and assistance as needed. Patient is working with [facility] mattress spring encaser to find alternate housing. [facility] Transition of Care will contact patient to schedule hospital follow up. No barriers to discharge on this date.
--- NOTE | 2021-04-06 16:43 | NUR ---
DISCHARGE SUMMARY PATIENT DISCHARGE THIS SHIFT TO HOME WITH HOME HEALTH SERVICES. PT IS AAOX4, ABLE TO MAKE NEEDS KNOWN. PT VERBALIZED UNDERSTANDING OF DISCHARGE ORDERS. IV LINE AND TELE DISCONTINUED PRIOR TO DC. NO COMPLAINTS OR ISSUES NOTED FROM PATIENT PRIOR TO DC. DC PAPERWORK GIVEN TO PATIENT UPON DC.
== END 2021-04-06 16:39 | disposition home health service (06) | DRG 871 ==
LOC: ER 12:17 → MEDS 16:09 → ERHOLD 16:09 → MEDS 20:41
PROVIDERS: Emergency Medicine; Family Medicine; Internal Medicine; Internal Medicine Nephrology; Physician Assistant; Student in an Organized Health Care Education/Training Program; ADMIT Family Medicine
PROC: 0DB68ZX Excision of Stomach, Via Natural or Artificial Opening Endoscopic, Diagnostic (ICD-10-PCS; 2021-03-28)
PROC: 0DB38ZX Excision of Lower Esophagus, Via Natural or Artificial Opening Endoscopic, Diagnostic (ICD-10-PCS; principal; 2021-03-28 15:00)
DX: A41.9 Sepsis, unspecified organism (principal); J18.9 Pneumonia, unspecified organism; J96.01 Acute respiratory failure with hypoxia; N18.6 End stage renal disease; E87.1 Hypo-osmolality and hyponatremia; N39.0 Urinary tract infection, site not specified; K92.1 Melena; J44.0 Chronic obstructive pulmonary disease with (acute) lower respiratory infection; J44.1 Chronic obstructive pulmonary disease with (acute) exacerbation; E87.2 Acidosis; D62 Acute posthemorrhagic anemia; G93.49 Other encephalopathy; N17.9 Acute kidney failure, unspecified; Z20.822 Contact with and (suspected) exposure to COVID-19; E83.39 Other disorders of phosphorus metabolism; E87.5 Hyperkalemia; E83.42 Hypomagnesemia; K20.90 Esophagitis, unspecified without bleeding; R65.20 Severe sepsis without septic shock; G89.4 Chronic pain syndrome; D63.1 Anemia in chronic kidney disease; L89.896 Pressure-induced deep tissue damage of other site; B96.89 Other specified bacterial agents as the cause of diseases classified elsewhere; B18.2 Chronic viral hepatitis C; F41.1 Generalized anxiety disorder; Z98.890 Other specified postprocedural states; Z88.1 Allergy status to other antibiotic agents; Z88.5 Allergy status to narcotic agent; Z88.8 Allergy status to other drugs, medicaments and biological substances; Z79.51 Long term (current) use of inhaled steroids; Z79.899 Other long term (current) drug therapy
CPT/HCPCS: 0097U; 0241U; 36415; 36430; 36600; 71045; 71046; 76770; 80048; 80053; 80069; 80202; 81001; 82607; 82728; 82746; 82803; 83540; 83550; 83605; 83735; 84100; 84156; 84166; 85014; 85018; 85025; 85610; 85730; 86335; 86592; 86850; 86900; 86901; 86923; 87040; 87086; 87389; 87522; 88305; 88312; 93005; 93010; 93306; 94640; 94668; 94760; 94761; 94762; 96365; 96367; 96375; 97129; 97165; 97535; 99284-25; A9270; C9113; J0696; J0881; J1885; J2370; J2704; J2916; J3370; J3475; J3480; J7030; J7050; J7070; J7120; J7512; P9016

== ENCOUNTER 2021-07-01 11:49 | Emergency (ER) | payer OTHER ==
[~2021-07-01] VITALS: Ht 162.6 cm; Wt 49.0 kg
[~2021-07-01 11:49] MED LIST changes: +BENZ100A PO; +CLON.5 PO; +CYCLOBENZAPRINE5 MG PO; +DIFLUCAN100 MG PO; +FLUTICASONE-SA1 EAC1 INH; +FOLI1 PO; +GABA100 PO; +GABA300 PO; +IPRAT-ALBUT 0.5-3 ML NEB; +LORA10ER PO; +MONT10T PO; +MUPIROCIN1 G1 TOP; +NICO21TP TOP; +OMEP20ER PO; +Prednisone10 MG PO; +SPIRIVA RESPIMAT4 G3 INH; +TRAM50 PO; +TRAZ50 PO
[2021-07-01 12:24] LABS: BASOPHILS ABSOLUTE AUTO 0.03 K/mm3 (0.00-0.23); BASOPHILS PERCENT AUTO 0 % (0-2); EOSINOPHILS ABSOLUTE AUTO 0.02 K/mm3 (0.00-0.68); EOSINOPHILS PERCENT AUTO 0 % (0-6); Hematocrit 35.8 % (33.0-51.0); Hemoglobin 12.1 g/dL (11.5-16.0); IMMATURE GRAN ABSOLUTE AUTO 0.09 K/mm3 (0.00-0.10); IMMATURE GRAN PERCENT AUTO 1 % (0-1); LYMPHOCYTES PERCENT AUTO 11 % (21-46); MONOCYTES ABSOLUTE AUTO 1.22 K/mm3 (0.16-1.47); MONOCYTES PERCENT AUTO 12 % (4-13); Mean Corpuscular HGB Conc 33.8 g/dL (31.5-36.5); Mean Corpuscular Volume 86 fL (80-100); Mean Platelet Volume 9.2 fL (9.1-12.4); NEUTROPHILS ABSOLUTE AUTO 7.78 K/mm3 (1.96-9.15); NEUTROPHILS PERCENT AUTO 76 % (41-73); Platelet Count 425 K/mm3 (150-400); RDW Coefficient Variation 13.4 % (11.7-14.2); RDW Standard Deviation 41.8 fL (35.1-46.3); Red Blood Cell Count 4.17 M/mm3 (3.80-5.20); White Blood Cell Count 10.24 K/mm3 (4.00-11.30)
[2021-07-01 12:45] LABS: Albumin, Blood 2.7 g/dL (3.4-5.0); Albumin/Globulin Ratio 0.6 (0.8-1.8); Bilirubin, Total 0.7 mg/dL (0.1-1.0); Bun/Creatinine Ratio 11.3 (12.0-20.0); Creatinine, Blood 1.15 mg/dL (0.40-1.00); Globulin, Blood 4.8 g/dL (2.2-4.0); Potassium, Blood 3.3 mmol/L (3.5-5.5); Total Protein, Blood 7.5 g/dL (6.4-8.2)
[2021-07-01 12:49] LABS: Influenza A, PCR NEGATIVE (NEGATIVE); Influenza B, PCR NEGATIVE (NEGATIVE); Resp Syncytial Virus, PCR NEGATIVE (NEGATIVE); SARS-Cov-2 (COVID-19) PCR, MMC NEGATIVE (NEGATIVE)
[2021-07-01] MEDS ORDERED: POTA10T PO (14:52)
[2021-07-01] MEDS ORDERED: FERSU300 PO (14:52)
[2021-07-01] MEDS ORDERED: CLON.5 PO (14:54)
[2021-07-01] MEDS ORDERED: Ventolin5 MG/1 ML INH (15:31)
[2021-07-01] MEDS ORDERED: LEVO750 PO (15:31)
== END 2021-07-01 15:58 | disposition home or self-care (01) ==
LOC: ER 11:49
PROVIDERS: Student in an Organized Health Care Education/Training Program
DX: J18.9 Pneumonia, unspecified organism (principal); J44.9 Chronic obstructive pulmonary disease, unspecified; Z20.822 Contact with and (suspected) exposure to COVID-19; Z88.5 Allergy status to narcotic agent; Z79.899 Other long term (current) drug therapy
CPT/HCPCS: 0241U; 36415; 71045; 80053; 83880; 84484; 85025; 93005; 93010; 94640; 94664; 96374; 99285-25; A9270; J0696

== ENCOUNTER 2023-03-06 16:56 | Inpatient (IN) | payer OTHER ==
[~2023-03-06] VITALS: Ht 162.6 cm; Wt 54.0 kg
[~2023-03-06 16:56] MED LIST changes: +FERSU300 PO; +LEVO750 PO; +POTA10T PO; +Ventolin5 MG/1 ML INH
[2023-03-06 18:01] LABS: BASOPHILS ABSOLUTE AUTO 0.04 K/mm3 (0.00-0.23); BASOPHILS PERCENT AUTO 0 % (0-2); EOSINOPHILS ABSOLUTE AUTO 0.15 K/mm3 (0.00-0.68); EOSINOPHILS PERCENT AUTO 1 % (0-6); Hematocrit 30.8 % (33.0-51.0); Hemoglobin 10.4 g/dL (11.5-16.0); IMMATURE GRAN ABSOLUTE AUTO 0.05 K/mm3 (0.00-0.10); IMMATURE GRAN PERCENT AUTO 0 % (0-1); LYMPHOCYTES ABSOLUTE AUTO 1.12 K/mm3 (0.84-5.20); LYMPHOCYTES PERCENT AUTO 7 % (21-46); MONOCYTES ABSOLUTE AUTO 0.77 K/mm3 (0.16-1.47); MONOCYTES PERCENT AUTO 5 % (4-13); Mean Corpuscular HGB 29.8 pg (26.0-34.0); Mean Corpuscular HGB Conc 33.8 g/dL (31.5-36.5); Mean Corpuscular Volume 88 fL (80-100); Mean Platelet Volume 9.6 fL (9.1-12.4); NEUTROPHILS ABSOLUTE AUTO 13.72 K/mm3 (1.96-9.15); NEUTROPHILS PERCENT AUTO 87 % (41-73); Platelet Count 418 K/mm3 (150-400); RDW Coefficient Variation 13.3 % (11.7-14.2); RDW Standard Deviation 42.9 fL (35.1-46.3); Red Blood Cell Count 3.49 M/mm3 (3.80-5.20); White Blood Cell Count 15.85 K/mm3 (4.00-11.30)
[2023-03-06 18:03] LABS: Albumin/Globulin Ratio 0.7 (0.8-1.8); Bilirubin, Total 1.2 mg/dL (0.1-1.0); Calcium, Blood 8.9 mg/dL (8.5-10.1); Creatinine, Blood 3.16 mg/dL (0.40-1.00); Globulin, Blood 4.2 g/dL (2.2-4.0); Potassium, Blood 4.1 mmol/L (3.5-5.5); Total Protein, Blood 7.2 g/dL (6.4-8.2)
[2023-03-06] MEDS ORDERED: LISI5 PO (18:24)
[2023-03-06] MEDS ORDERED: HYDHCL25 PO (18:24)
[2023-03-06] MEDS ORDERED: NAPROXEN500 MG PO (18:25)
[2023-03-06 19:09] LABS: Influenza A, PCR NEGATIVE (NEGATIVE); Influenza B, PCR NEGATIVE (NEGATIVE); Resp Syncytial Virus, PCR NEGATIVE (NEGATIVE); SARS-Cov-2 (COVID-19) PCR, MMC NEGATIVE (NEGATIVE)
[2023-03-06 21:03] LABS: Source, Urine Clean Catch
[2023-03-06 21:11] LABS: Appearance, Urine Cloudy (Clear); Bilirubin, Urine Neg (Neg); Blood, Urine 5+ (Neg); Color, Urine Yellow (P-Yellow); Glucose Qualitative, Urine Neg (Neg); Ketones, Urine Neg (Neg); Leukocyte Esterase, Urine 3+ (Neg); Nitrite, Urine Pos (Neg); Protein, Urine 2+ (Neg); Urobilinogen, Urine NORM (Normal)
[2023-03-06 21:21] LABS: Bacteria Many /hpf; Squamous Epithelial Cells Few /hpf (Few); White Blood Cells, Urine TNTC /hpf (0-5)
[2023-03-07 01:16] VITALS: BP 114/69
[2023-03-07 01:35] LABS: Creatinine, Urine Random 75.7 mg/dL (27.00-270.00)
--- NOTE | 2023-03-07 01:52 | NUR ---
ADMIT NOTE HANDOFF RECEIVED FROM PATIENT INTAKE COORDINATOR JESSICA. PT ARRIVED TO FLOOR VIA GURNEY. PERSONAL POSSESSIONS WITH PATIENT. NS INFUSING. CARDIAC DIET. SHE IS ON 4 LPM O2 AT THIS TIME, WHICH WAS DONE IN THE ER WHEN SHE HAD A COUGHING FIT AND COULDN'T GET HER BREATH. WE WILL TRY TO TITRATE HER DOWN TO HER BASELINE WHEN SHE CALMS DOWN. SHE STATES SHE IS NAUSEOUS AND VOMITING AGAIN, SO I AM HESITANT TO GIVE HER FOOD/FLUIDS AT THIS TIME.
--- NOTE | 2023-03-07 04:41 | NUR ---
SHIFT SUMMARY ADMITTED FOR UTI - SEPSIS, NESHA ON CKD, DEHYDRATION. FULL CODE. PLAN IS FOR IV ANTIB RX. SHE HAS HX OF COPD, 2 LPM VIA NC @ BASELINE. SHE DOES HAVE A COUGH AND GREEN SPUTUM IS REPORTED. RESPIRATORY PANEL NEGATIVE. NS INFUSING. ON CARDIAC DIET. STANDBY ASSIST DUE TO HER WEAKNESS.
[2023-03-07 05:30] LABS: BASOPHILS ABSOLUTE AUTO 0.05 K/mm3 (0.00-0.23); BASOPHILS PERCENT AUTO 0 % (0-2); EOSINOPHILS ABSOLUTE AUTO 0.32 K/mm3 (0.00-0.68); EOSINOPHILS PERCENT AUTO 3 % (0-6); Hematocrit 31.3 % (33.0-51.0); Hemoglobin 9.9 g/dL (11.5-16.0); IMMATURE GRAN ABSOLUTE AUTO 0.03 K/mm3 (0.00-0.10); IMMATURE GRAN PERCENT AUTO 0 % (0-1); LYMPHOCYTES PERCENT AUTO 7 % (21-46); MONOCYTES ABSOLUTE AUTO 0.57 K/mm3 (0.16-1.47); MONOCYTES PERCENT AUTO 5 % (4-13); Mean Corpuscular HGB Conc 31.6 g/dL (31.5-36.5); Mean Corpuscular Volume 92 fL (80-100); Mean Platelet Volume 9.5 fL (9.1-12.4); NEUTROPHILS ABSOLUTE AUTO 10.31 K/mm3 (1.96-9.15); NEUTROPHILS PERCENT AUTO 85 % (41-73); Platelet Count 360 K/mm3 (150-400); RDW Coefficient Variation 13.4 % (11.7-14.2); RDW Standard Deviation 45.3 fL (35.1-46.3); Red Blood Cell Count 3.41 M/mm3 (3.80-5.20); White Blood Cell Count 12.18 K/mm3 (4.00-11.30)
[2023-03-07 05:47] LABS: Albumin, Blood 2.6 g/dL (3.4-5.0); Albumin/Globulin Ratio 0.7 (0.8-1.8); Bilirubin, Total 0.5 mg/dL (0.1-1.0); Bun/Creatinine Ratio 17.6 (12.0-20.0); Calcium, Blood 7.8 mg/dL (8.5-10.1); Creatinine, Blood 1.7 mg/dL (0.40-1.00); Globulin, Blood 3.7 g/dL (2.2-4.0); Total Protein, Blood 6.3 g/dL (6.4-8.2)
[2023-03-07 07:20] VITALS: BP 115/61
[2023-03-07 15:59] VITALS: BP 137/75
--- NOTE | 2023-03-07 18:08 | NUR ---
SHIFT SUMMARY- PT ALERT AND ORIENTED INDEPENDENT IN THE ROOM. IV IS SL AT THIS TIME. PT ENCOURAGED TO DRINK WATER IN RASHEED OF COKE (HER PREFERED DRINK). SHE AGREES TO DRINK SOME WATER T/O THE SHIFT. MEDICATED FOR ANXIETY EARLIER IN THE DAY, MEDS ORDERED SCHEDULED PER DR REED. PT IN BED, CALL LIGHT IN REACH NO S&S OF DISTRESS AT THIS TIME. SHE DOES HAVE A LOW FEVER AT 100.4 AFTER TYLENOL DOWN FROM 101.8. PT IS ABLE TO CALL APPROPRIATELY FOR HER NEEDS. SHE RECENTLY LOST HER SON (AGE 26) TO AN OVERDOSE (FENTANYL PER PT). SHE SEEMS TO BE IN A LOT OF EMOTIONAL TURMOIL AT THIS POINT IN HER LIFE.
[2023-03-07 20:42] VITALS: BP 109/78
[2023-03-08 04:21] VITALS: BP 114/66
[2023-03-08 05:58] LABS: BASOPHILS ABSOLUTE AUTO 0.05 K/mm3 (0.00-0.23); BASOPHILS PERCENT AUTO 0 % (0-2); EOSINOPHILS ABSOLUTE AUTO 0.41 K/mm3 (0.00-0.68); EOSINOPHILS PERCENT AUTO 3 % (0-6); Hemoglobin 9.1 g/dL (11.5-16.0); IMMATURE GRAN ABSOLUTE AUTO 0.07 K/mm3 (0.00-0.10); IMMATURE GRAN PERCENT AUTO 1 % (0-1); LYMPHOCYTES ABSOLUTE AUTO 1.08 K/mm3 (0.84-5.20); LYMPHOCYTES PERCENT AUTO 8 % (21-46); MONOCYTES ABSOLUTE AUTO 1.07 K/mm3 (0.16-1.47); MONOCYTES PERCENT AUTO 8 % (4-13); Mean Corpuscular HGB 29.9 pg (26.0-34.0); Mean Corpuscular HGB Conc 32.5 g/dL (31.5-36.5); Mean Corpuscular Volume 92 fL (80-100); Mean Platelet Volume 9.8 fL (9.1-12.4); NEUTROPHILS ABSOLUTE AUTO 10.68 K/mm3 (1.96-9.15); NEUTROPHILS PERCENT AUTO 80 % (41-73); Platelet Count 309 K/mm3 (150-400); RDW Coefficient Variation 13.5 % (11.7-14.2); RDW Standard Deviation 45.4 fL (35.1-46.3); Red Blood Cell Count 3.04 M/mm3 (3.80-5.20); White Blood Cell Count 13.36 K/mm3 (4.00-11.30)
[2023-03-08 06:25] LABS: Albumin, Blood 2.3 g/dL (3.4-5.0); Albumin/Globulin Ratio 0.6 (0.8-1.8); Bilirubin, Total 0.2 mg/dL (0.1-1.0); Bun/Creatinine Ratio 16.4 (12.0-20.0); Calcium, Blood 8.4 mg/dL (8.5-10.1); Creatinine, Blood 1.1 mg/dL (0.40-1.00); Globulin, Blood 3.9 g/dL (2.2-4.0); Potassium, Blood 4.7 mmol/L (3.5-5.5); Total Protein, Blood 6.2 g/dL (6.4-8.2)
[2023-03-08 07:30] VITALS: BP 121/72
--- NOTE | 2023-03-08 07:37 | NUR ---
SHIFT SUMMARY ADDMITTED FOR UTI, NESHA ON CKD, DEHYDRATION. FULL CODE. IV ANTIB RX ARE SCHEDULED. SHE WAS GIVEN ANXIETY MEDICATION WITH GOOD EFFECT. ELEVATED WBC COUNT IS TRENDING DOWN. HX OF CHF, COPD, ANXIETY
--- NOTE | 2023-03-08 13:36 | NUR ---
Patient is lying in bed and alert. She has visitors in the room but speaks freely with this Rn Hematology. She is tearful at times as she shares about her medical issuses and the recent of her son. She calls him his "baby" even though he is a grown man and explains about his overdose. I listen empathically as she tells about his life and his character. We explore several different avenues for bereavement support. We also discuss her [employer] bradford and possible ways to lean into that bradford for further strength, comfort and direction. More visitors arrive in the and so I provide prayer and allow her time with her visitors. Patient responded well ans showed signs of being comforted. I will continue to remain available to patient and family.
[2023-03-08 16:04] VITALS: BP 135/78
--- NOTE | 2023-03-08 18:14 | NUR ---
SHIFT SUMMARY: PT A/O X 4, IND IN ROOM PLEASANT AND COOPERATIVE WITH CARE. PT TITRATED FROM 3 LPM TO 2 LPM VIA NC TODAY. PT AT BASELINE NEEDS. PT REPORTED SHE HAD A SHARP PAIN IN HER NECK AND "SLEPT ON IT WRONG." TYLENOL AND FLEXERIL GIVEN PER MAR AND HELPFUL WITH PAIN. PT EDUCATED ON IMPORTANCE OF DRINKING WATER THROUGHOUT THE DAY AND AT LEAST 64 oZ. PT REPORTS SHE DRINKS COCA COLA 6-8 CANS DAILY. PT VU.
[2023-03-08 20:02] VITALS: BP 130/83
[2023-03-09 02:53] VITALS: BP 135/85
--- NOTE | 2023-03-09 04:15 | NUR ---
SHIFT SUMMARY PT A&OX3-4 AND CALLS APPROPRIATELY. PT ASLEEP DURING BEGINNING OF SHIFT, UNINTEREPTED REST UTELIZED. PT AWAKE AT AROUND 2200 AND RECEIVED EVENING MEDICATIONS. VSS. NO ACUTE EVENTS DURING MY SHIFT. PT KEPT IN A POSITION OF SAFETY WITH FALL PRECAUTIONS IN PLACE AND CALLL LIGHT WITHIN REACH.
[2023-03-09 07:43] VITALS: BP 131/73
[2023-03-09] MEDS ORDERED: CEFP200 PO (13:18)
[2023-03-09] MEDS ORDERED: CLON.5 PO (13:19)
--- NOTE | 2023-03-09 16:59 | NUR ---
DISCHARGE SUMMARY: PT DISCHARGED HOME TODAY. PT EDUCATED ON DISCHARGE INSTRUCTIONS AND MEDICATIONS. PT VU. HARD SCRIPT FOR CLONAZEPAM GIVEN. ASSISTED PT WITH PACKING BELONGINGS. PT SON BROUGHT HER O2 TANK. PLACED PT ON HER O2 AT 2 LPM VIA NC, PT ESCORTED TO POV VIA WC.
== END 2023-03-09 16:52 | disposition home or self-care (01) | DRG 872 ==
LOC: ER 16:56 → ERHOLD 23:51 → MEDS 23:51 → ENPENDDIS 03-09 11:45 → MEDS 03-09 16:52
PROVIDERS: Emergency Medicine; Family Medicine; Internal Medicine; Student in an Organized Health Care Education/Training Program; ADMIT Student in an Organized Health Care Education/Training Program
DX: A41.51 Sepsis due to Escherichia coli [E. coli] (principal); N39.0 Urinary tract infection, site not specified; N17.9 Acute kidney failure, unspecified; J96.11 Chronic respiratory failure with hypoxia; R65.20 Severe sepsis without septic shock; E86.0 Dehydration; I10 Essential (primary) hypertension; J44.9 Chronic obstructive pulmonary disease, unspecified; E83.42 Hypomagnesemia; R33.9 Retention of urine, unspecified; F41.0 Panic disorder [episodic paroxysmal anxiety]; F17.210 Nicotine dependence, cigarettes, uncomplicated; Z88.1 Allergy status to other antibiotic agents; Z88.5 Allergy status to narcotic agent; Z79.51 Long term (current) use of inhaled steroids; Z86.19 Personal history of other infectious and parasitic diseases; Z11.52 Encounter for screening for COVID-19; Z99.81 Dependence on supplemental oxygen; Z79.1 Long term (current) use of non-steroidal anti-inflammatories (NSAID)
CPT/HCPCS: 0241U; 36415; 71046; 76770; 80053; 81001; 82570; 83605; 83880; 84145; 84300; 84484; 85025; 87040; 87077; 87086; 87186; 94640; 94664; 94760; 96360; 99285-25; A9270; J0696; J1650; J3475; J7030; J7050

== ENCOUNTER → 2023-04-30 | Outpatient (CLI) | payer OTHER ==
[~2023-04-30] MED LIST changes: +CEFP200 PO; +HYDHCL25 PO; +LISI5 PO; +NAPROXEN500 MG PO
== END ==
LOC: LAB SHORT 17:47 → EFM RAD 17:47
PROVIDERS: Nurse Practitioner Family
DX: Z12.4 Encounter for screening for malignant neoplasm of cervix (principal)
CPT/HCPCS: G0123

== ENCOUNTER 2023-06-06 12:45 | Emergency (ER) | payer OTHER ==
[~2023-06-06] VITALS: Ht 162.6 cm; Wt 52.6 kg
[2023-06-06 16:52] LABS: BASOPHILS ABSOLUTE AUTO 0.04 K/mm3 (0.00-0.23); BASOPHILS PERCENT AUTO 1 % (0-2); EOSINOPHILS ABSOLUTE AUTO 0.28 K/mm3 (0.00-0.68); EOSINOPHILS PERCENT AUTO 3 % (0-6); Hematocrit 34.7 % (33.0-51.0); Hemoglobin 10.9 g/dL (11.5-16.0); IMMATURE GRAN ABSOLUTE AUTO 0.01 K/mm3 (0.00-0.10); IMMATURE GRAN PERCENT AUTO 0 % (0-1); LYMPHOCYTES ABSOLUTE AUTO 1.47 K/mm3 (0.84-5.20); LYMPHOCYTES PERCENT AUTO 17 % (21-46); MONOCYTES ABSOLUTE AUTO 0.63 K/mm3 (0.16-1.47); MONOCYTES PERCENT AUTO 7 % (4-13); Mean Corpuscular HGB 27.8 pg (26.0-34.0); Mean Corpuscular HGB Conc 31.4 g/dL (31.5-36.5); Mean Corpuscular Volume 89 fL (80-100); Mean Platelet Volume 10.4 fL (9.1-12.4); NEUTROPHILS ABSOLUTE AUTO 6.04 K/mm3 (1.96-9.15); NEUTROPHILS PERCENT AUTO 71 % (41-73); Platelet Count 387 K/mm3 (150-400); RDW Coefficient Variation 13.7 % (11.7-14.2); RDW Standard Deviation 43.8 fL (35.1-46.3); Red Blood Cell Count 3.92 M/mm3 (3.80-5.20); White Blood Cell Count 8.47 K/mm3 (4.00-11.30)
[2023-06-06 17:06] LABS: Albumin, Blood 3.2 g/dL (3.4-5.0); Albumin/Globulin Ratio 0.7 (0.8-1.8); Bilirubin, Total 0.3 mg/dL (0.1-1.0); Calcium, Blood 8.9 mg/dL (8.5-10.1); Creatinine, Blood 0.82 mg/dL (0.40-1.00); Globulin, Blood 4.6 g/dL (2.2-4.0); Potassium, Blood 4.1 mmol/L (3.5-5.5); Total Protein, Blood 7.8 g/dL (6.4-8.2)
[2023-06-06] MEDS ORDERED: Ipratropium/Albuterol SulF 2.5-0.5MG/3 ML Amp INH ONE (17:10)
[2023-06-06] MEDS ORDERED: MethylPREDNISolone Sod Succ 125 MG Vial IV ONE (17:20)
[2023-06-06 18:03] LABS: Base Excess Venous 11.5 mmol/L; Bicarbonate Venous 33.3 mmol/L (24.0-30.0); PCO2 Venous 62.8 mmHg (38-42); pH Blood Venous 7.38 (7.34-7.37)
[2023-06-06 18:39] LABS: Influenza A, PCR NEGATIVE (NEGATIVE); Influenza B, PCR NEGATIVE (NEGATIVE); SARS-Cov-2 (COVID-19) PCR, MMC NEGATIVE (NEGATIVE)
[2023-06-06 18:53] LABS: Resp Syncytial Virus, PCR POSITIVE (NEGATIVE)
[2023-06-06 19:43] VITALS: BP 101/67
[2023-06-06] MEDS ORDERED: PRED20 PO (19:56)
== END 2023-06-06 20:20 | disposition home or self-care (01) ==
LOC: ER 12:45
PROVIDERS: Physician Assistant; Student in an Organized Health Care Education/Training Program
DX: R06.02 Shortness of breath (principal); R05.9 Cough, unspecified; B97.4 Respiratory syncytial virus as the cause of diseases classified elsewhere; J44.9 Chronic obstructive pulmonary disease, unspecified; I10 Essential (primary) hypertension; F17.200 Nicotine dependence, unspecified, uncomplicated; Z79.899 Other long term (current) drug therapy; Z88.1 Allergy status to other antibiotic agents; Z88.5 Allergy status to narcotic agent
CPT/HCPCS: 0241U; 71045; 80053; 82803; 83880; 84484; 85025; 93005; 93010; 94640; 94664; 96374; 99285-25; J2930

== ENCOUNTER 2023-07-30 07:19 | Emergency (ER) | payer OTHER ==
[~2023-07-30] VITALS: Ht 162.6 cm; Wt 53.1 kg
[2023-07-30] MEDS ORDERED: Ketorolac Tromethamine 30mg Vial IM ONE (07:50)
[2023-07-30] MEDS ORDERED: HYDROcodone 10-APAP 325 TAB PO ONE (07:50)
[2023-07-30 08:49] VITALS: BP 119/74
== END 2023-07-30 08:47 | disposition home or self-care (01) ==
LOC: ER 07:19
DX: M62.830 Muscle spasm of back (principal); J44.9 Chronic obstructive pulmonary disease, unspecified; F17.210 Nicotine dependence, cigarettes, uncomplicated; Z79.899 Other long term (current) drug therapy; Z88.1 Allergy status to other antibiotic agents; Z88.5 Allergy status to narcotic agent
CPT/HCPCS: 96372; 99283-25; A9270; J1885

== ENCOUNTER 2024-01-08 18:23 | Inpatient (IN) | payer OTHER ==
[~2024-01-08] VITALS: Ht 162.6 cm; Wt 55.9 kg
[2024-01-08] VITALS (7 sets, daily range): BP systolic 77–113; BP diastolic 54–77
[~2024-01-08 18:23] MED LIST changes: +Etomidate 2MG / ML 10ML Vial IV ONE; +Propofol 10mg/ml 20 ml Vial (Procedural) IV ONE; +Rocuronium Bromide 10 MG/ML 5ML Injection IV ONE
[2024-01-08] MEDS ORDERED: NS 1,000 ML IV ONE ×3 (18:31→19:18)
[2024-01-08] MEDS ORDERED: propofoL 100 ML IV SCH ×2 (18:40→20:35)
[2024-01-08] MEDS ORDERED: Ipratropium Bromide INH 0.02% 0.5 mg/2.5ML Vial INH SCH (18:40)
[2024-01-08] MEDS ORDERED: Albuterol 2.5 MG/3 ML VIAL INH SCH (18:40)
[2024-01-08 18:51] LABS: PCO2 Arterial 49.3 mmHg (35-45); PO2 Arterial >500 mmHg (80-100)
[2024-01-08 18:57] LABS: BASOPHILS PERCENT AUTO 1 % (0-2); EOSINOPHILS ABSOLUTE AUTO 0.33 K/mm3 (0.00-0.68); EOSINOPHILS PERCENT AUTO 3 % (0-6); Hematocrit 34.6 % (33.0-51.0); IMMATURE GRAN ABSOLUTE AUTO 0.06 K/mm3 (0.00-0.10); IMMATURE GRAN PERCENT AUTO 1 % (0-1); LYMPHOCYTES ABSOLUTE AUTO 1.57 K/mm3 (0.84-5.20); LYMPHOCYTES PERCENT AUTO 12 % (21-46); MONOCYTES ABSOLUTE AUTO 1.08 K/mm3 (0.16-1.47); MONOCYTES PERCENT AUTO 8 % (4-13); Mean Corpuscular HGB 29.2 pg (26.0-34.0); Mean Corpuscular HGB Conc 31.8 g/dL (31.5-36.5); Mean Corpuscular Volume 92 fL (80-100); Mean Platelet Volume 9.8 fL (9.1-12.4); NEUTROPHILS ABSOLUTE AUTO 9.78 K/mm3 (1.96-9.15); NEUTROPHILS PERCENT AUTO 76 % (41-73); Platelet Count 340 K/mm3 (150-400); RDW Coefficient Variation 14.7 % (11.7-14.2); Red Blood Cell Count 3.77 M/mm3 (3.80-5.20); White Blood Cell Count 12.92 K/mm3 (4.00-11.30)
[2024-01-08 19:05] LABS: Appearance, Urine Cloudy (Clear); Bilirubin, Urine Neg (Neg); Blood, Urine 4+ (Neg); Color, Urine Yellow (P-Yellow); Glucose Qualitative, Urine Neg (Neg); Ketones, Urine Neg (Neg); Leukocyte Esterase, Urine 3+ (Neg); Nitrite, Urine Neg (Neg); Protein, Urine 2+ (Neg); Specific Gravity, Urine 1.015 (1.003-1.022); Urobilinogen, Urine NORM (Normal)
[2024-01-08 19:17] LABS: Bacteria Mod /hpf; Squamous Epithelial Cells Few /hpf (Few); White Blood Cells, Urine 50-100 /hpf (0-5)
[2024-01-08 19:18] LABS: U Amphetamine Screen DETECTED; U Barbituate Screen Not Detected; U Benzodiazapine Screen DETECTED; U Buprenorphine Screen Not Detected; U Cannabinoids Screen DETECTED; U Cocaine Screen Not Detected; U Methadone Screen Not Detected; U Methamphetamine Screen DETECTED; U Opiates Screen Not Detected; U Oxycodone Screen Not Detected; U Phencyclidine Screen Not Detected
[2024-01-08 19:22] LABS: Albumin, Blood 3.1 g/dL (3.4-5.0); Albumin/Globulin Ratio 0.8 (0.8-1.8); Bilirubin, Total 0.5 mg/dL (0.1-1.0); Bun/Creatinine Ratio 18.6 (12.0-20.0); Calcium, Blood 8.6 mg/dL (8.5-10.1); Creatinine, Blood 0.91 mg/dL (0.40-1.00); Globulin, Blood 3.7 g/dL (2.2-4.0); Potassium, Blood 4.8 mmol/L (3.5-5.5); Total Protein, Blood 6.8 g/dL (6.4-8.2)
[2024-01-08] MEDS ORDERED: Vancomycin HCL 2,000 MG in NS 520 ML IV ONE (19:30)
[2024-01-08] MEDS ORDERED: Piperacillin/Tazobactam Sod 3.375 GM in NS 100 ML IV ONE (19:30)
[2024-01-08] MEDS ORDERED: NS 1,000 ML IV SCH ×2 (20:10→21:10)
[2024-01-08] MEDS ORDERED: LORazepam 2 MG/ML 1ML Injection IV PRN (21:15)
[2024-01-08] MEDS ORDERED: Cetylpyridinium Chloride 1 EA MISC MT SCH (21:15)
[2024-01-08] MEDS ORDERED: FentaNYL Citrate 50 MCG/ML 2 ML Injection IV PRN (21:15)
[2024-01-08] MEDS ORDERED: Ipratropium/Albuterol SulF 2.5-0.5MG/3 ML Amp INH SCH (21:15)
[2024-01-08] MEDS ORDERED: Albuterol 2.5 MG/3 ML VIAL INH PRN (21:15)
[2024-01-08] MEDS ORDERED: propofoL 100 ML IV PRN (21:30)
[2024-01-08 21:48] LABS: Base Excess Venous -0.5 mmol/L; Bicarbonate Venous 23.8 mmol/L (24.0-30.0); PCO2 Venous 45.5 mmHg (38-42); pH Blood Venous 7.35 (7.34-7.37)
--- NOTE | 2024-01-08 22:30 | NUR ---
ASSUMED CARE PT INTUBATED AND SEDATED; 18/350/5/35%. PT HAS PROPOFOL INFUSING (SEE FLOWSHEET) W/ LEVOPHED ON SB. PT RATE IN THE 80'S; MAP <65; SPO2 >92%. PT WAKING TO VERBAL STIMULI AND FOLLOWING COMMANDS (SQUEEZES BOTH HANDS W/ EQUAL WELDER PIPE MAKING STRENGTH). PUPILS DILATED W/ SLOW RESPONSE BILATERALLY; EQUAL, ROUND. RESTING QUIETLY AT THIS TIME. 6 RINGS WERE TAKEN OFF PT'S FINGERS AND PUT IN SPECIMEN CUP; LOCKED IN ROOM LOCKBOX AT THIS TIME.
[2024-01-09] VITALS (93 sets, daily range): BP systolic 78–160; BP diastolic 53–90
[2024-01-09] MEDS ORDERED: Hydrogen Peroxide 1.5 % Solution MT SCH
--- NOTE | 2024-01-09 02:33 | NUR ---
UPDATE PT BECAME AGITATED DURING SUCTION BY RT AND REPOSITIONING, VOMITED. SEDATION WAS TITRATED UP AND DR SO AWARE (WAS ON UNIT). NO NEW ORDERS AT THIS TIME.
[2024-01-09 03:47] LABS: BASOPHILS ABSOLUTE AUTO 0.03 K/mm3 (0.00-0.23); BASOPHILS PERCENT AUTO 0 % (0-2); EOSINOPHILS ABSOLUTE AUTO 0.18 K/mm3 (0.00-0.68); EOSINOPHILS PERCENT AUTO 2 % (0-6); Hematocrit 26.9 % (33.0-51.0); Hemoglobin 8.8 g/dL (11.5-16.0); IMMATURE GRAN ABSOLUTE AUTO 0.03 K/mm3 (0.00-0.10); IMMATURE GRAN PERCENT AUTO 0 % (0-1); LYMPHOCYTES ABSOLUTE AUTO 1.06 K/mm3 (0.84-5.20); LYMPHOCYTES PERCENT AUTO 12 % (21-46); MONOCYTES ABSOLUTE AUTO 0.59 K/mm3 (0.16-1.47); MONOCYTES PERCENT AUTO 7 % (4-13); Mean Corpuscular HGB 29.2 pg (26.0-34.0); Mean Corpuscular HGB Conc 32.7 g/dL (31.5-36.5); Mean Corpuscular Volume 89 fL (80-100); Mean Platelet Volume 9.5 fL (9.1-12.4); NEUTROPHILS ABSOLUTE AUTO 7.22 K/mm3 (1.96-9.15); NEUTROPHILS PERCENT AUTO 79 % (41-73); Platelet Count 257 K/mm3 (150-400); RDW Coefficient Variation 14.9 % (11.7-14.2); RDW Standard Deviation 48.2 fL (35.1-46.3); Red Blood Cell Count 3.01 M/mm3 (3.80-5.20); White Blood Cell Count 9.11 K/mm3 (4.00-11.30)
[2024-01-09 04:13] LABS: Albumin, Blood 2.4 g/dL (3.4-5.0); Albumin/Globulin Ratio 0.9 (0.8-1.8); Bilirubin, Total 0.6 mg/dL (0.1-1.0); Bun/Creatinine Ratio 18.7 (12.0-20.0); Calcium, Blood 7.5 mg/dL (8.5-10.1); Creatinine, Blood 0.69 mg/dL (0.40-1.00); Globulin, Blood 2.7 g/dL (2.2-4.0); Magnesium, Blood 1.9 mg/dL (1.6-2.4); Potassium, Blood 3.9 mmol/L (3.5-5.5); Total Protein, Blood 5.1 g/dL (6.4-8.2)
--- NOTE | 2024-01-09 05:09 | NUR ---
SHIFT SUMMARY PT REMAINS INTUBATED AND SEDATED; PROPOFOL AND LEVOPHED INFUSING. PT WAS NOT TOLERATING WEANING OF PROPOFOL (AGITATED, COUGHING, GAGGING, AND VOMITED. SEE PREVIOUS NOTE. HOSPITALIST AWARE). TITRATED BACK UP AND LEVOPHED RE-INITIATED D/T MAP <65. FENTANYL/ATIVAN USED SEDATION ADJUNCT PRN PER EMAR. NO OTHER ACUTE EVENTS THIS EVENING. PT DAUGHTER WAS CALLED FOR HELP W/ ADMIT HX AND FOR UPDATE. PT DAUGHTER STATES SHE WILL BE IN THIS AM. PT HAS DENTURES IN CUP, 6 RINGS AND ID IN LOCKBOX IN ROOM.
--- NOTE | 2024-01-09 05:14 | NUR ---
BELONGINGS/RINGS/ID 6 RINGS, ID IN LOCKBOX.
[2024-01-09 05:59] LABS: Bicarbonate Venous 25.1 mmol/L (24.0-30.0); pH Blood Venous 7.38 (7.34-7.37)
[2024-01-09] MEDS ORDERED: Piperacillin/Tazobactam Sod 3.375 GM in NS 100 ML IV SCH (06:00)
[2024-01-09] MEDS ORDERED: Pantoprazole Sodium 40 MG Injection IV SCH (06:00)
[2024-01-09] MEDS ORDERED: NS 250 ML IV PRN ×2 (06:55→08:30)
[2024-01-09] MEDS ORDERED: Enoxaparin 40 MG/0.4 ML SYR SC SCH (09:00)
[2024-01-09] MEDS ORDERED: CefTRIAXone Sodium 1,000 MG in NS 100 ML IV SCH (10:00)
--- NOTE | 2024-01-09 10:27 | NUR ---
Pt. is intubated and displays evidence of agitation. Nurse Clara is at bedsideas is daughter who welcomes my visit. Facilitated a life review with daughter. Listen with interest and empathy. Daughter invited this case advocate to pray for the Pt. Prayed for the Pt. Pt. displayed evidence of continues agitiation. Daughter verbalized gratitude for the spiritual care visit and welcomed this case advocate to return.
[2024-01-09] MEDS ORDERED: TIOT18 INH (13:59)
[2024-01-09] MEDS ORDERED: GABA300 PO (14:01)
[2024-01-09] MEDS ORDERED: NAPR500 PO (14:02)
[2024-01-09] MEDS ORDERED: ALBU90OI INH (14:02)
[2024-01-09] MEDS ORDERED: LORazepam 2 MG/ML 1ML Injection IV PRN (14:35)
--- NOTE | 2024-01-09 17:40 | NUR ---
SHIFT SUMMARY PATIENT REMAINS INTUBATED AND SEDATED. ON SPONTANEOUS 03/13 FIO2 35%. PROPOFOL @ 10MCG/KG/MIN, PRECEDEX @ 1.4MCG/KG/HR, NS @ 100ML/HR. PATIENT OPENS EYES, MAKES EYE CONTACT, ATTEMPTS TO TALK, REACHES FOR TUBE, AND FOLLOWS COMMANDS WHEN SEDATION IS TURNED DOWN. TMAX 100.2F TODAY. OGT TO LIS WITH 100ML OUTPUT. LUNG SOUNDS COARSE T/O SHIFT WITH THICK FROTHY LIGHT YELLOW SPUTUM. LEVOPHED OFF WITH MAPS GREATER THAN 65. ACTIVE BT X 4, NO BM THIS SHIFT. TEMP NEUMANN PATENT AND DRAINED 550ML OUT. URINE CULTURE RAN OFF OF URINE OBTAINED LAST NIGHT. NO OTHER CHANGES THIS SHIFT.
--- NOTE | 2024-01-09 20:02 | NUR ---
ASSUMPTION OF CARE: RECEIVED REPORT FROM ELEONORA Morales RN AT 1900. PT INTUBATED AND SEDATED. OPENS EYES TO VERBAL STIMULI AND FOLLOWS COMMANDS ALTHOUGH PT BECOMES VERY AGGITATED WITH STIMULUS AND ATTEMPTS TO SELF-EXTUBATE AND KICK STAFF. PT SHAKES HEAD YES WHEN ASKED ABOUT PAIN. PT ON PROPOFOL AT 15 MCG/KG/MIN WITH PRECEDEX AT 1.4 MCG/KG/HR. PT SWITCHED FROM PS TO AC/VC PER RT AT 1999. SETTINGS AC/VC 18/350/5.0/35%. LUNGS COARSE. SPO2 MID 90'S. RR 18-20. STABLE ATTENDANT IN PLACE, SR, HR 60'S. SBP 130'S WITH MAP >65. NEUMANN PATENT AND DRAINING TO GRAVITY YELLOW URINE. NO BM YET THIS SHIFT. ABDOMEN MILDLY DISTENDED, BT ACTIVE. NS INFUSING AT 100 ML/HR. PIVS INTACT, RAC/LAC AND RH. BED LOW AND LOCKED. RESTRAINTS IN PLACE.
[2024-01-10] VITALS (43 sets, daily range): BP systolic 103–187; BP diastolic 61–99
[2024-01-10] MEDS ORDERED: dexmedeTOMIDine 100 ML IV SCH (00:35)
[2024-01-10] MEDS ORDERED: Vancomycin HCL 1,250 MG in NS 250 ML IV ONE (00:40)
[2024-01-10 03:09] LABS: BASOPHILS ABSOLUTE AUTO 0.04 K/mm3 (0.00-0.23); BASOPHILS PERCENT AUTO 0 % (0-2); EOSINOPHILS ABSOLUTE AUTO 0.28 K/mm3 (0.00-0.68); EOSINOPHILS PERCENT AUTO 3 % (0-6); Hematocrit 30.2 % (33.0-51.0); Hemoglobin 9.7 g/dL (11.5-16.0); IMMATURE GRAN ABSOLUTE AUTO 0.04 K/mm3 (0.00-0.10); IMMATURE GRAN PERCENT AUTO 0 % (0-1); LYMPHOCYTES ABSOLUTE AUTO 0.97 K/mm3 (0.84-5.20); LYMPHOCYTES PERCENT AUTO 10 % (21-46); MONOCYTES ABSOLUTE AUTO 0.72 K/mm3 (0.16-1.47); MONOCYTES PERCENT AUTO 7 % (4-13); Mean Corpuscular HGB 29.3 pg (26.0-34.0); Mean Corpuscular HGB Conc 32.1 g/dL (31.5-36.5); Mean Corpuscular Volume 91 fL (80-100); Mean Platelet Volume 9.8 fL (9.1-12.4); NEUTROPHILS ABSOLUTE AUTO 7.94 K/mm3 (1.96-9.15); NEUTROPHILS PERCENT AUTO 80 % (41-73); Platelet Count 205 K/mm3 (150-400); RDW Coefficient Variation 14.6 % (11.7-14.2); RDW Standard Deviation 48.5 fL (35.1-46.3); Red Blood Cell Count 3.31 M/mm3 (3.80-5.20); White Blood Cell Count 9.99 K/mm3 (4.00-11.30)
[2024-01-10 03:26] LABS: Bun/Creatinine Ratio 12.5 (12.0-20.0); Calcium, Blood 7.5 mg/dL (8.5-10.1); Creatinine, Blood 0.56 mg/dL (0.40-1.00); Magnesium, Blood 1.8 mg/dL (1.6-2.4); Phosphorus, Blood 2.3 mg/dL (2.5-4.9); Potassium, Blood 4.2 mmol/L (3.5-5.5)
--- NOTE | 2024-01-10 05:15 | NUR ---
SHIFT SUMMARY: NO ACUTE CHANGES OVERNIGHT. PT CONTINUES INTUBATED AND SEDATED ON 20 MCG/KG/MIN OF PROPOFOL AND 1.0 MCG/KG/HR OF PRECEDEX. PT GIVEN MULTIPLE PRN DOSES OF ATIVAN FOR AGGITATION. PT BECOMES VERY AGGITATED WITH STIMULUS AND ATTEMPTS TO KICK AND PINCH STAFF. PT APPEARS COMFORTABLE WHEN NO STIMULUS PRESENT. OPENS EYES TO VERBAL STIMULI AND NODS HEAD YES/NO TO QUESTIONS. FOLLOWS COMMANDS AT TIMES. VENT SETTINGS AC/VC 18/350/5.0/35%. LUNGS REMAIN COARSE T/O WITH MODERATE THICK SECRETIONS. RR 18-20. ETCO2 22-30. SPO2 MID TO HIGH 90'S. SHOULDER SAWYER REMAINS, SR WITH HR 60'S-70'S. SBP 150'S. NS AT 100 ML/HR. OGT SET TO LIS. NEUMANN PATENT AND DRAINING TO GRAVITY. NO BM THIS SHIFT. PIVS INTACT. RESTRAINTS IN PLACE. BED LOW AND LOCKED.
[2024-01-10] MEDS ORDERED: Potassium Phosphate Dibasic 30 MM in Dextrose 5% 500 ML IV STA (09:50)
[2024-01-10] MEDS ORDERED: OLANZapine 10 MG Vial ONE (10:19)
[2024-01-10] MEDS ORDERED: OLANZapine 10 MG Vial IM ONE (10:30)
--- NOTE | 2024-01-10 10:47 | NUR ---
Pt. is intubated and being asessed by her nurse and César Aparicio. Daughter Antonella is at bedside and displays evidence of concern and anxiety. Sought to normalize the Pt. experience for the daughter. The daughter displayed evidence of being comforted. Will remain available to the Pt. amd family.
[2024-01-10] MEDS ORDERED: Vancomycin HCL 1,000 MG in NS 250 ML IV SCH (11:00)
[2024-01-10] MEDS ORDERED: OLANZapine 10 MG Vial IM PRN (16:45)
[2024-01-10] MEDS ORDERED: Nystatin 100,000 Unit/ML Susp 5 ML UDC PO SCH (17:30)
--- NOTE | 2024-01-10 17:32 | NUR ---
SHIFT SUMMARY CORTEZ REMAINS INTUBATED AND SEDATED. ATTEMPTED SPONTANEOUS MULTIPLE TIMES PER SHIFT BY DR. REZA. PATIENT WOULD BECOME AGITATED, PULLING ON RESTRAINTS, THRASHING HEAD SIDE TO SIDE, AND ATTEMPTING TO GRAB ETT. RR WOULD INCREASE TO HIGH 30'S-MID 40'S AND TV WOULD DECREASE TO 250'S. PATIEN REQUIRED MULTIPLE DOSES OF ATIVAN, ONCE BACK TO BACK PER VERBAL ORDER BY DR. REZA. REQUIRED ONE DOSE OF OLANZEPINE. SEDATION: PROPOFOL @ 40MCG/KG/MIN, PRECEDEX @ 1.4 MCG/KG/HR. VENT ON AC/CV 18/350/5/30% WITH SPO2 MID 90'S AND ETCO2 HIGH 20'S TO LOW 30'S. VSS. PATIENT SHOWED SIGNS OF THRUSH PER DENTAL HYGIENIST. STARTED ON NYSTATIN SWISH AND SWALLOW. OGT TO DAVID HAD 2L OUT. NO BM THIS SHIFT. NO OTHER CHANGES THIS SHIFT.
--- NOTE | 2024-01-10 19:00 | NUR ---
ASSUMED CARE ASSUMED CARE OF PATIENT. REMAINS INTUBATED- AC/VC 18, TV 350, PEEP 5, FIO2 30%. SEDATED WITH PROPOFOL AT 40MCG/KG/MIN AND PRECEDEX 1.4MCG/KG/HR. RASS -2 TO -3. BILATERAL SOFT WRIST RESTRAINT TO PREVENT SELF-EXTUBATION. MONITOR SHOWS NSR, RATE 70s. BP STABLE. TEMP 99.9F PER NEUMANN TEMP PROBE. OG TO LIS WITH GREEN DRAINAGE. NEUMANN PATENT AND DRAINING TO GRAVITY- YELLOW URINE. SEE SHIFT ASSESSMENT FOR FULL ASSESSMENT.
[2024-01-11] VITALS (24 sets, daily range): BP systolic 116–146; BP diastolic 54–87
[2024-01-11 03:05] LABS: Hematocrit 28.9 % (33.0-51.0); Hemoglobin 9.5 g/dL (11.5-16.0); Mean Corpuscular HGB 29.1 pg (26.0-34.0); Mean Corpuscular HGB Conc 32.9 g/dL (31.5-36.5); Mean Corpuscular Volume 88 fL (80-100); Mean Platelet Volume 9.7 fL (9.1-12.4); Platelet Count 242 K/mm3 (150-400); RDW Coefficient Variation 14.6 % (11.7-14.2); RDW Standard Deviation 46.7 fL (35.1-46.3); Red Blood Cell Count 3.27 M/mm3 (3.80-5.20); White Blood Cell Count 7.94 K/mm3 (4.00-11.30)
[2024-01-11 03:25] LABS: Calcium, Blood 8.1 mg/dL (8.5-10.1); Creatinine, Blood 0.5 mg/dL (0.40-1.00); Potassium, Blood 3.5 mmol/L (3.5-5.5)
--- NOTE | 2024-01-11 06:23 | NUR ---
SHIFT SUMMARY NO ACUTE CHANGES DURING NOC. REMAINS INTUBATED- AC/VC 18/350/5/30%. SEDATED WITH PROPOFOL 30-40MCG/KG/MIN- NOW AT 30MCG/KG/MIN. PRECEDEX BETWEEN 1.0-1.4MCG/KG/HR DURING SHIFT- NOW AT 1.0MCG/KG/HR. RASS -3. BILATERAL SOFT WRIST RESTRAINTS IN PLACE TO PREVENT SELF-EXTUBATION. VSS. HR 55-60 THIS AM. TMAX 99.9F. OG TO LIS WITH SMALL AMOUNT OF GREEN DRAINAGE. NEUMANN PATENT AND DRAINING TO GRAVITY.
[2024-01-11] MEDS ORDERED: Ampicillin Sod 1,000 MG in NS 50 ML IV SCH (10:30)
--- NOTE | 2024-01-11 11:57 | NUR ---
Pt. is awake but displays evidence of not being fully alert. During introductions the Pt. clearly verbalized that she was cold and confirmed it non verbally. Pts. nurse was notified. This chapalin will remain available to the Pt., family and staff.
--- NOTE | 2024-01-11 12:09 | NUR ---
Summary. Pt extubated at 1010 to 4L NC with good results. Propofol and Precedex turned off, restraints discontinued. Since extubation pt has slowly been becoming more alert althought she is confused and refusing to wear her oxygen. Sats are 88-89%, physician aware. Pt also pulled one PIV out and is refusing to let staff remove tegaderm, gauze and coban in place.
--- NOTE | 2024-01-11 18:32 | NUR ---
Summary. Pt extubated today, see note. Pt resting in bed, oriented to self/family. Pt pulling at lines this afternoon and combative when attempting care. Precedex restarted, sitter at bedside. Pt incontinent of stool. No acute events, see chart for details.
--- NOTE | 2024-01-11 19:00 | NUR ---
ASSUMED CARE OF PATIENT AT 1900. REPORT RECEIVED FROM JUANCARLOS PAIGE. PT IN BED, RESTLESS, SITTER AT BEDSIDE. CONFUSED WITH SOME QUESTIONS. WHEN ASKED IF SHE WANTS HER LIGHT OFF SHE ASKS, "WHY DOES IT HAVE TO BE OFF?". CONTINOUS CARDIAC MONITORING SHOWS SINUS TACH WITH HR OF 106. BP 135/72. ON 3LPM O2 VIA NC WITH O2 SATURATION OF 97%. LS COARSE T/O. ATTENDS IN PLACE, NEUMANN IN PLACE. PRECEDEX INFUSING AT 0.6MCG/KG/HR. TKO INFUSING. SEE SHIFT ASSESSMENT FOR FULL DETAILS.
[2024-01-12] VITALS (14 sets, daily range): BP systolic 103–158; BP diastolic 58–88
[2024-01-12 03:19] LABS: Hematocrit 28.6 % (33.0-51.0); Hemoglobin 9.3 g/dL (11.5-16.0); Mean Corpuscular HGB 29.2 pg (26.0-34.0); Mean Corpuscular HGB Conc 32.5 g/dL (31.5-36.5); Mean Corpuscular Volume 90 fL (80-100); Platelet Count 242 K/mm3 (150-400); RDW Coefficient Variation 14.3 % (11.7-14.2); RDW Standard Deviation 46.5 fL (35.1-46.3); Red Blood Cell Count 3.19 M/mm3 (3.80-5.20); White Blood Cell Count 5.73 K/mm3 (4.00-11.30)
[2024-01-12 03:40] LABS: Bun/Creatinine Ratio 10.9 (12.0-20.0); Creatinine, Blood 0.55 mg/dL (0.40-1.00); Potassium, Blood 3.3 mmol/L (3.5-5.5)
[2024-01-12] MEDS ORDERED: Potassium Chl 20MEQ/Water100ML 100 ML IV SCH (04:15)
--- NOTE | 2024-01-12 06:10 | NUR ---
SHIFT SUMMARY PT REMAINED ALERT AND ORIENTED X 3 (UNABLE TO VERBALIZE DATE/TIME) T/O ENTIRETY OF SHIFT. PT FREQUENTLY BECAME COMBATIVE WITH STAFF WHILE TRYING TO IMPLEMENT CARE. PRECEDEX TITRATED FOR AGITATION, CURRENTLY INFUSING AT 0.8 MCG/KG/HR. REPORTED HEADACHE AT 8/10, MEDICATED PER EMAR WITH GOOD BENEFIT. AFEBRILE. CONTINOUS CARDIAC MONITORING SHOWED SR WITH HR IN 80'S-100'S. BP STABLE, MAP > 65. REMAINS ON 3LPM O2 VIA NC. PT FREQUENTLY REMOVES NC AND REQUIRES RE-PLACEMENT. ONE BM THIS SHIFT. NEUMANN IN PLACE DRAINING DARK URINE TO GRAVITY. TKO AND AMPICILLIN INFUSING. KCL INFUSING. WILL CONTINUE TO MONITOR AND REPORT TO ONCOMING RN.
[2024-01-12] MEDS ORDERED: Cyclobenzaprine HCl 10 MG Tab PO PRN (10:40)
[2024-01-12] MEDS ORDERED: ClonazePAM 0.5 MG Tab PO PRN ×2 (10:40→16:45)
[2024-01-12] MEDS ORDERED: Naproxen 500 MG Tab PO PRN (10:40)
[2024-01-12] MEDS ORDERED: Tiotropium Bromide 2.5 MCG/ACT MIST INHAL (10 ACT/4 GM) INH SCH (10:50)
[2024-01-12] MEDS ORDERED: PredniSONE 20 MG Tab PO SCH (14:00)
[2024-01-12] MEDS ORDERED: Gabapentin 300 MG Cap PO SCH (14:00)
[2024-01-12] MEDS ORDERED: Melatonin 5 MG Tablet PO PRN (16:45)
--- NOTE | 2024-01-12 18:25 | NUR ---
Summary. Pt continues to improve this shift. Med w/tele status now. Alert and oriented x3 all shift. Pt pleasant and cooperative with care. Ambulating with one person assist to bedside commode with walker. Landry catheter removed. Attends in place PG placed in CLARK this shift. Family at bedside this evening. No acute events this shift. See chart for further details.
--- NOTE | 2024-01-12 21:17 | NUR ---
ASSUMPTION OF CARE/ASSESSMENT: ASSUMED CARE OF PT AT 1900, RECIEVED BEDSIDE REPORT FROM GRECIA BAUER. PT POST EXTUABTION DAY TWO, ON NC @ 2LPM (BASELINE) WITH SPO2 96<; LUNGS ARE CLEAR WITH DIM BASES AND SLIGHT EXP. WHEEZE, PRN BREATHING TX. PT DENIES SOB. SR-ST WIT HR 90-110'S, SBP 140-150'S AND DENIES CHEST PAIN/PRESSURE AT THIS TIME. OLMSTEAD IN BED AND CAN REPOSITION INDEPENDENTLY. REQUIRES 1-PERSON ASSIST FOR TRANSFERS TO BEDSIDE COMMODE. PT USING CALL LIGHT APPROPRIATELY. PG TO CLARK WITH NS TKO. BED LOWERED, CALL LIGHT IN REACH.
[2024-01-13] MEDS ORDERED: Albuterol HFA200 ACT/6.7 GM INH INH PRN (02:40)
[2024-01-13 03:19] LABS: Albumin, Blood 2.8 g/dL (3.4-5.0); Anion Gap 12 mmol/L (3-11); Blood Urea Nitrogen 3 mg/dL (8-24); Bun/Creatinine Ratio 5.8 (12.0-20.0); CO2, Blood 27 mmol/L (21-32); Calcium, Blood 8.5 mg/dL (8.5-10.1); Chloride, Blood 108 mmol/L (98-108); Creatinine, Blood 0.52 mg/dL (0.40-1.00); Glomerular Filtration Rate 104 (60-); Glucose, Blood 156 mg/dL (70-99); Magnesium, Blood 1.6 mg/dL (1.6-2.4); Phosphorus, Blood 2.8 mg/dL (2.5-4.9); Potassium, Blood 3.6 mmol/L (3.5-5.5); Sodium, Blood 143 mmol/L (136-145)
[2024-01-13 05:55] VITALS: BP 152/87
--- NOTE | 2024-01-13 07:07 | NUR ---
SHIFT SUMMARY: NO ACUTE CHANGES OVERNGIHT; VSS THROUGHOUT THE SHIFT. PT REMAINS ON NC @ 2LPM. PT UP TO BEDSIDE WITH SBA FOR CORDS; GAIT STEADY, GOOD URINE OUTPUT. PT UNABLE TO SLEEP MUCH THIS SHIFT; IT WAS NOTED THAT PT BECAME CONFUSED AT TIMES AND REPORTED VISUAL HALLUCINATIONS BUT WAS ABLE TO TELL THAT THEY WERE NOT REAL. PT CONTINUES TO BE A&O X3, PLEASANT AND COOPERATIVE WITH CARE DESPITE INTERMITTEN CONFUSION. PG TO CLARK THAT IS PATENT AND INFUSING NS TKO. BEDSIDE SHIFT REPORT GIVEN TO GRECIA BAUER.
[2024-01-13] MEDS ORDERED: Aspirin 325 MG Tab PO ONE (08:25)
[2024-01-13] MEDS ORDERED: [UNRECOGNIZED DRUG - CODE] PO (12:49)
[2024-01-13] MEDS ORDERED: DELTASONE20 MG PO (12:52)
--- NOTE | 2024-01-13 14:40 | NUR ---
PT DISCHARGED AT 1340. LEFT UNIT VIA WHEELCHAIR, ON HOME 02. VS STABLE AT TIME OF DISCHARGE.
[2024-01-14] MEDS ORDERED: Albuterol HFA200 ACT/6.7 GM INH INH SCH (02:40)
== END 2024-01-13 13:43 | disposition home or self-care (01) | DRG 871 ==
LOC: ER 18:23 → ICUE 20:47
PROVIDERS: Internal Medicine; Internal Medicine Critical Care Medicine; Nurse Practitioner Acute Care; Student in an Organized Health Care Education/Training Program; ADMIT Student in an Organized Health Care Education/Training Program
PROC: 5A1945Z Respiratory Ventilation, 24-96 Consecutive Hours (ICD-10-PCS; 2024-01-08)
PROC: 3E03329 Introduction of Other Anti-infective into Peripheral Vein, Percutaneous Approach (ICD-10-PCS; principal; 2024-01-10)
DX: A41.81 Sepsis due to Enterococcus (principal); G92.8 Other toxic encephalopathy; R65.21 Severe sepsis with septic shock; J96.21 Acute and chronic respiratory failure with hypoxia; J44.1 Chronic obstructive pulmonary disease with (acute) exacerbation; N12 Tubulo-interstitial nephritis, not specified as acute or chronic; G89.4 Chronic pain syndrome; J44.9 Chronic obstructive pulmonary disease, unspecified; I10 Essential (primary) hypertension; F15.10 Other stimulant abuse, uncomplicated; E83.39 Other disorders of phosphorus metabolism; Z71.41 Alcohol abuse counseling and surveillance of alcoholic; F41.1 Generalized anxiety disorder; F12.90 Cannabis use, unspecified, uncomplicated; Z99.81 Dependence on supplemental oxygen; Z86.19 Personal history of other infectious and parasitic diseases; Z88.8 Allergy status to other drugs, medicaments and biological substances; Z88.5 Allergy status to narcotic agent; Z88.1 Allergy status to other antibiotic agents; Z79.899 Other long term (current) drug therapy
CPT/HCPCS: 31500; 31720; 36415; 36600; 51702; 70450; 71045; 80048; 80053; 80069; 80320; 81001; 82550; 82803; 82947; 83605; 83690; 83735; 83880; 84100; 84145; 84484; 85025; 85027; 87040; 87070; 87077; 87086; 87106; 87185; 87186; 87205; 93005; 93010; 94002; 94003; 94640; 94644; 94664; 94762; 96361-59; 96365-59; 99291-25; 99292; A9270; C1751; J0290; J0696; J1650; J2060; J2470; J2543; J2704; J3010; J3370; J3480; J7030; J7040; J7050; J7060; J7512

== ENCOUNTER 2025-01-31 14:23 | Emergency (ER) | payer OTHER ==
[~2025-01-31] VITALS: Ht 162.6 cm; Wt 49.9 kg
[~2025-01-31 14:23] MED LIST changes: +DELTASONE20 MG PO; -Etomidate 2MG / ML 10ML Vial IV ONE; -Propofol 10mg/ml 20 ml Vial (Procedural) IV ONE; -Rocuronium Bromide 10 MG/ML 5ML Injection IV ONE; +TIOT18 INH; +[UNRECOGNIZED DRUG - CODE] PO
[2025-01-31 14:55] LABS: BASOPHILS ABSOLUTE AUTO 0.06 K/mm3 (0.00-0.23); BASOPHILS PERCENT AUTO 1 % (0-2); EOSINOPHILS ABSOLUTE AUTO 0.14 K/mm3 (0.00-0.68); EOSINOPHILS PERCENT AUTO 1 % (0-6); Hematocrit 31.6 % (33.0-51.0); Hemoglobin 10.4 g/dL (11.5-16.0); IMMATURE GRAN ABSOLUTE AUTO 0.04 K/mm3 (0.00-0.10); IMMATURE GRAN PERCENT AUTO 0 % (0-1); LYMPHOCYTES ABSOLUTE AUTO 1.16 K/mm3 (0.84-5.20); LYMPHOCYTES PERCENT AUTO 12 % (21-46); MONOCYTES ABSOLUTE AUTO 0.78 K/mm3 (0.16-1.47); MONOCYTES PERCENT AUTO 8 % (4-13); Mean Corpuscular HGB Conc 32.9 g/dL (31.5-36.5); Mean Corpuscular Volume 88 fL (80-100); NEUTROPHILS ABSOLUTE AUTO 7.65 K/mm3 (1.96-9.15); NEUTROPHILS PERCENT AUTO 78 % (41-73); NRBC ABSOLUTE 0.00 K/mm3 (0.00-0.02); NRBC Auto 0.0 /100 WBC (0.0-0.2); Platelet Count 202 K/mm3 (150-400); RDW Coefficient Variation 15.9 % (11.7-14.2); RDW Standard Deviation 50.0 fL (35.1-46.3)
[2025-01-31] MEDS ORDERED: CYCL10 PO (14:59)
[2025-01-31 15:00] LABS: pH Blood Venous 7.51 (7.34-7.37)
[2025-01-31 15:09] LABS: Alanine Aminotransfer (ALT/SGP 25.0 U/L (12-78); Albumin, Blood 3.0 g/dL (3.4-5.0); Albumin/Globulin Ratio 0.9 (0.8-1.8); Anion Gap 9.0 mmol/L (3-11); Aspartate Aminotrans (AST/SGOT 27.0 U/L (12-37); Bilirubin, Total 1.2 mg/dL (0.1-1.0); Blood Urea Nitrogen 6.0 mg/dL (8-24); CO2, Blood 29.0 mmol/L (21-32); Calcium, Blood 8.3 mg/dL (8.5-10.1); Chloride, Blood 102.0 mmol/L (98-108); Creatinine, Blood 0.9 mg/dL (0.40-1.00); Globulin, Blood 3.4 g/dL (2.2-4.0); Glucose, Blood 123.0 mg/dL (70-99); Potassium, Blood 2.9 mmol/L (3.5-5.5); Sodium, Blood 137.0 mmol/L (136-145); Total Protein, Blood 6.4 g/dL (6.4-8.2)
[2025-01-31] MEDS ORDERED: NS 1,000 ML IV SCH (15:10)
[2025-01-31] MEDS ORDERED: Ipratropium/Albuterol SulF 2.5-0.5MG/3 ML Amp INH SCH (15:20)
[2025-01-31 15:29] LABS: Influenza A, PCR NEGATIVE (NEGATIVE); Influenza B, PCR NEGATIVE (NEGATIVE); Resp Syncytial Virus, PCR NEGATIVE (NEGATIVE); SARS-Cov-2 (COVID-19) PCR, MMC NEGATIVE (NEGATIVE)
[2025-01-31] MEDS ORDERED: LORazepam 2 MG/ML 1ML Injection IV ONE ×2 (16:00→16:45)
[2025-01-31 17:50] LABS: U Amphetamine Screen DETECTED; U Cannabinoids Screen DETECTED; U Methamphetamine Screen DETECTED
[2025-01-31 17:51] LABS: U Barbiturate Screen Not Detected; U Benzodiazapine Screen Not Detected; U Buprenorphine Screen Not Detected; U Cocaine Screen Not Detected; U Methadone Screen DETECTED; U Opiates Screen Not Detected; U Oxycodone Screen Not Detected; U Phencyclidine Screen Not Detected
[2025-01-31 19:30] VITALS: BP 105/91
[2025-02-02] MEDS ORDERED: PRED20 PO (15:39)
== END 2025-01-31 20:15 | disposition home or self-care (01) ==
LOC: ER 14:23
PROVIDERS: Student in an Organized Health Care Education/Training Program
DX: J44.1 Chronic obstructive pulmonary disease with (acute) exacerbation (principal); R00.0 Tachycardia, unspecified; J43.9 Emphysema, unspecified; I10 Essential (primary) hypertension; F17.210 Nicotine dependence, cigarettes, uncomplicated; Z79.52 Long term (current) use of systemic steroids; Z79.899 Other long term (current) drug therapy
CPT/HCPCS: 71045; 80053; 82803; 84484; 85025; 87637; 93005; 93010; 96361; 96374; 96375; 96376; 99285-25; A9270; J2060; J2919; J7030

== ENCOUNTER 2025-02-20 09:14 | Inpatient (IN) | payer OTHER ==
[~2025-02-20] VITALS: Ht 157.5 cm; Wt 50.4 kg
[2025-02-20 09:50] LABS: BASOPHILS ABSOLUTE AUTO 0.06 K/mm3 (0.00-0.23); BASOPHILS PERCENT AUTO 0 % (0-2); EOSINOPHILS ABSOLUTE AUTO 0.11 K/mm3 (0.00-0.68); EOSINOPHILS PERCENT AUTO 0 % (0-6); Hematocrit 29.4 % (33.0-51.0); Hemoglobin 9.9 g/dL (11.5-16.0); IMMATURE GRAN ABSOLUTE AUTO 1.46 K/mm3 (0.00-0.10); IMMATURE GRAN PERCENT AUTO 5 % (0-1); LYMPHOCYTES ABSOLUTE AUTO 0.88 K/mm3 (0.84-5.20); LYMPHOCYTES PERCENT AUTO 3 % (21-46); MONOCYTES ABSOLUTE AUTO 1.32 K/mm3 (0.16-1.47); MONOCYTES PERCENT AUTO 4 % (4-13); Mean Corpuscular HGB Conc 33.7 g/dL (31.5-36.5); Mean Corpuscular Volume 83 fL (80-100); NEUTROPHILS ABSOLUTE AUTO 26.99 K/mm3 (1.96-9.15); NEUTROPHILS PERCENT AUTO 88 % (41-73); NRBC ABSOLUTE 0.00 K/mm3 (0.00-0.02); NRBC Auto 0.0 /100 WBC (0.0-0.2); Platelet Count 417 K/mm3 (150-400); RDW Coefficient Variation 16.7 % (11.7-14.2); RDW Standard Deviation 51.0 fL (35.1-46.3)
[2025-02-20 09:53] LABS: pH Blood Venous 7.56 (7.34-7.37)
[2025-02-20 10:11] LABS: Alanine Aminotransfer (ALT/SGP 355.0 U/L (12-78); Albumin, Blood 3.0 g/dL (3.4-5.0); Albumin/Globulin Ratio 0.9 (0.8-1.8); Anion Gap 12.0 mmol/L (3-11); Aspartate Aminotrans (AST/SGOT 129.0 U/L (12-37); Bilirubin, Total 6.9 mg/dL (0.1-1.0); Blood Urea Nitrogen 8.0 mg/dL (8-24); CO2, Blood 32.0 mmol/L (21-32); Calcium, Blood 8.4 mg/dL (8.5-10.1); Chloride, Blood 89.0 mmol/L (98-108); Creatinine, Blood 1.15 mg/dL (0.40-1.00); Globulin, Blood 3.4 g/dL (2.2-4.0); Glucose, Blood 83.0 mg/dL (70-99); Potassium, Blood 3.1 mmol/L (3.5-5.5); Sodium, Blood 130.0 mmol/L (136-145); Total Protein, Blood 6.4 g/dL (6.4-8.2)
[2025-02-20] MEDS ORDERED: Piperacillin/Tazobactam Sod 4.5 GM in NS 100 ML IV ONE (10:30)
[2025-02-20] MEDS ORDERED: LORazepam 2 MG/ML 1ML Injection IV ONE (11:30)
[2025-02-20 12:48] LABS: Source, Urine Clean Catch
[2025-02-20 12:57] LABS: Color, Urine Yellow (P-Yellow); Glucose Qualitative, Urine Neg (Neg); Ketones, Urine 1+ (Neg); Leukocyte Esterase, Urine 3+ (Neg); Protein, Urine 2+ (Neg); Specific Gravity, Urine 1.010 (1.003-1.022); Urobilinogen, Urine 1+ (Normal)
[2025-02-20 13:05] LABS: Bilirubin, Urine 1+ (Neg)
[2025-02-20 13:09] LABS: U Amphetamine Screen DETECTED; U Barbiturate Screen Not Detected; U Benzodiazapine Screen Not Detected; U Methamphetamine Screen DETECTED
[2025-02-20 13:10] LABS: U Buprenorphine Screen Not Detected; U Cannabinoids Screen DETECTED; U Cocaine Screen Not Detected; U Methadone Screen DETECTED; U Opiates Screen Not Detected; U Oxycodone Screen Not Detected; U Phencyclidine Screen Not Detected
[2025-02-20] MEDS ORDERED: Ipratropium/Albuterol SulF 2.5-0.5MG/3 ML Amp INH PRN ×2 (14:40→21:30)
[2025-02-20] MEDS ORDERED: Ondansetron HCl 2 MG / ML 2ML Vial IV PRN (14:40)
[2025-02-20] MEDS ORDERED: FLU VACC TS2025(65UP)/MF59C/PF 45 MCG/0.5 ML SYRINGE IM SCH (15:00)
[2025-02-20] MEDS ORDERED: Ipratropium/Albuterol SulF 2.5-0.5MG/3 ML Amp INH SCH (15:30)
[2025-02-20] MEDS ORDERED: Albuterol 2.5 MG/3 ML VIAL INH PRN (15:30)
[2025-02-20 17:47] VITALS: BP 101/61
--- NOTE | 2025-02-20 18:39 | NUR ---
ASSUMPTION OF CARE: PT ARRIVED TO PCU AT APPROX 1730 ON BED FROM ED, PT ALERT, NOT ORIENTED, RESPONDS TO VERBAL STIMULI, RESPONDS TO NAME, ATTEMPTS TO FOLLOW SIMPLE COMMANDS SUCH OPEN YOUR EYES, DOES NOT RESPOND VERBALLY, IMPULSIVE, HANDS WANDER AND TUG BUT SETTLE ONCE SOMETHING IS PLACED IN HER GRASP. TACHYCARDIC, HR 110'S-130'S, 140'S-150'S WITH EXERTION, MD NOTIFIED, EKG ORDERD, IV IN RIGHT AND LEFT WRISTS, LR INFUSING AT 150, POTASSIUM INFUSING PER EMAR. PUREWICK IN PLACE. BED IN LOWEST POSITION, ALARM SET.
--- NOTE | 2025-02-20 19:00 | NUR ---
TOA START OF SHIFT- TOA received from day nurse approximately around 1900hrs,patient GCS-9,restless,HR-120 TO 150s,MAP above 65 ,on 2L NC O2SAT ABOVE 92%,Bed at lowest position,call balbuena witin reach.
[2025-02-20 21:00] VITALS: BP 104/79
[2025-02-20] MEDS ORDERED: Lactobacil 2-S.Thermo-Bifido 1 1 Cap PO SCH (21:00)
[2025-02-20 22:00] VITALS: BP 112/95
[2025-02-20 23:00] VITALS: BP 127/101
[2025-02-21] VITALS (9 sets, daily range): BP systolic 107–149; BP diastolic 63–127
--- NOTE | 2025-02-21 02:56 | NUR ---
Shift Summary- Patient GCS 12,ABLE TO FOLLOW SOME COMMANDS,VERY RESTLESS AND ANXIOUS THIS TIME.PATIENT WANTED TO GET UP AND VOID,TRIES TO GET OUT OF BED,REMOVE WIRES AND NC,PATIENT REORIENTED AND GOT UP WITH 2 PERSON ASSIST ON COMMODE.Patient went back to bed,Patient allowed to put NC and wires back.
--- NOTE | 2025-02-21 06:55 | NUR ---
EVENT- PATIENT IS VERY RESTLESS,ASKING FOR CIGGERETTE AGAIN AND AGAIN,NICOTINE PATCH APPLIED NOW INSTEAD OF 0900hrs.NURY @ BEDSIDE.
[2025-02-21 08:33] LABS: BASOPHILS ABSOLUTE AUTO 0.06 K/mm3 (0.00-0.23); BASOPHILS PERCENT AUTO 0 % (0-2); EOSINOPHILS ABSOLUTE AUTO 0.00 K/mm3 (0.00-0.68); EOSINOPHILS PERCENT AUTO 0 % (0-6); Hematocrit 27.1 % (33.0-51.0); Hemoglobin 8.9 g/dL (11.5-16.0); IMMATURE GRAN ABSOLUTE AUTO 0.19 K/mm3 (0.00-0.10); IMMATURE GRAN PERCENT AUTO 1 % (0-1); LYMPHOCYTES ABSOLUTE AUTO 0.60 K/mm3 (0.84-5.20); LYMPHOCYTES PERCENT AUTO 2 % (21-46); MONOCYTES ABSOLUTE AUTO 0.38 K/mm3 (0.16-1.47); MONOCYTES PERCENT AUTO 1 % (4-13); Mean Corpuscular HGB Conc 32.8 g/dL (31.5-36.5); Mean Corpuscular Volume 86 fL (80-100); NEUTROPHILS ABSOLUTE AUTO 32.22 K/mm3 (1.96-9.15); NEUTROPHILS PERCENT AUTO 96 % (41-73); NRBC ABSOLUTE 0.00 K/mm3 (0.00-0.02); NRBC Auto 0.0 /100 WBC (0.0-0.2); Platelet Count 441 K/mm3 (150-400); RDW Coefficient Variation 17.0 % (11.7-14.2); RDW Standard Deviation 52.8 fL (35.1-46.3)
[2025-02-21 08:53] LABS: Alanine Aminotransfer (ALT/SGP 263.0 U/L (12-78); Albumin, Blood 2.9 g/dL (3.4-5.0); Albumin/Globulin Ratio 0.8 (0.8-1.8); Anion Gap 5.0 mmol/L (3-11); Aspartate Aminotrans (AST/SGOT 107.0 U/L (12-37); Bilirubin, Total 7.0 mg/dL (0.1-1.0); Blood Urea Nitrogen 17.0 mg/dL (8-24); CO2, Blood 38.0 mmol/L (21-32); Calcium, Blood 8.6 mg/dL (8.5-10.1); Chloride, Blood 96.0 mmol/L (98-108); Creatinine, Blood 0.91 mg/dL (0.40-1.00); Globulin, Blood 3.5 g/dL (2.2-4.0); Glucose, Blood 98.0 mg/dL (70-99); Potassium, Blood 3.8 mmol/L (3.5-5.5); Sodium, Blood 135.0 mmol/L (136-145); Total Protein, Blood 6.4 g/dL (6.4-8.2)
[2025-02-21] MEDS ORDERED: Enoxaparin 40 MG/0.4 ML SYR SC SCH (09:00)
[2025-02-21] MEDS ORDERED: Haloperidol Lactate Inj. 5 MG/ML Injection IM PRN (12:35)
[2025-02-21] MEDS ORDERED: Haloperidol Lactate Inj. 5 MG/ML Injection ONE (12:36)
--- NOTE | 2025-02-21 12:58 | NUR ---
MARICEL UMANZOR ESCALATING BEHAVIOR, STATING SHE WANTS A CIGARETTE AND TO LEAVE TO GO HOME; PATIENT HAS NICOTINE PATCH IN PLACE. ABLE TO TALK DOWN PATIENT DOWN WITH THERAPUTIC COMMUNICATION, RESTING IN BED, SITTER AT BEDSIDE. APPROX 20 MINUTES LATER PT ESCALATING, YELLING, STATING "I WANT TO LEAVE TO GO SMOKE" STATING "iM GONNA PUNCH HIM IN THE BACK OF THE HEAD"; APPEARS TO BE HALLUCINATING STATING SOMEONE A FAMILY MEMEBER IS BEHIND THE CURTAIN TALKING ABOUT HER, PT WAS SHOWN NO ONE BEHIND CURTAIN; NOTIIFED DR MARTINEZ; NEW ORDERS FOR SEROQUEL Q4 PRN, SEROQUEL AT BEDTIME AND ONE TIME DOSE OF HALODOL IM. PT WAS ABLE TO TAKE PO SEROQUEL. 1:1 SITTER AT BEDSIDE.
[2025-02-21] MEDS ORDERED: Piperacillin/Tazobactam Sod 4.5 GM in NS 100 ML IV SCH (14:00)
--- NOTE | 2025-02-21 15:49 | NUR ---
ASSISTED BEDSIDE RN AND SITTER WITH CALMING PT. WE SANG SONGS TOGETHER, PT RESPONDED WELL. NEWLY ORDERED MEDICATIONS APPEAR TO BE EFFECTIVE FOR PT'S EXIT SEEKING, YELLING OUT AND ATTEMPTING TO CONSISTENTLY CLIMB OOB.
--- NOTE | 2025-02-21 18:27 | NUR ---
SHIFT SUMMARY: A/O X2: SELF/PERSON, PLACE, 1:1 SITTER, RESTLESS, ANXIOUS, AND EASILY AGITATED, REDIRECTABLE AT TIMES, PRESSURED SPEECH AND FLIGHT OF IDEAS. EPISODE OF INCREASED AGITATION WITH ATTEMPTS TO EXIT BED, PT STATES, "I'M GOING TO PUNCH THAT BITCH IN THE BACK OF HER HEAD" AND "YOU'RE NOT GETTING PAID FOR TODAY, YOU BITCHES ARE TRYING TO FANY ME", PT REMOVED MD MARTINEZ NOTIFIED, NEW ORDERS PLACED, AFTER PO SERAQUEL PT'S AGITATION DECREASED AND BECAME REDIRECTABLE, 1:1 SITTER AT BEDSIDE. PT MAKES FREQUENT STATEMENTS LIKE "I'M A FUCKING DRUG ADDICT, MY GRANDDAUGHTER HAS A BOYFRIEND, MANISHA IS MAD AT ME." SINUS TACH THIS SHIFT, TELE PATCHES ON BACK, WILL PULL THEM OFF IF ON FRONT, POWER GLIDE PLACED, PT DENIES CHEST PAIN OR PRESSURE. SPO2 >92% ON 2L VIA NC, FREQUENTLY PULLS O2 LINE, PT DENIES SOB.
[2025-02-22] VITALS (13 sets, daily range): BP systolic 102–134; BP diastolic 60–80
[2025-02-22 04:17] LABS: BASOPHILS ABSOLUTE AUTO 0.00 K/mm3 (0.00-0.23); BASOPHILS PERCENT AUTO 0 % (0-2); EOSINOPHILS ABSOLUTE AUTO 0.00 K/mm3 (0.00-0.68); EOSINOPHILS PERCENT AUTO 0 % (0-6); Hematocrit 22.1 % (33.0-51.0); Hemoglobin 6.9 g/dL (11.5-16.0); IMMATURE GRAN ABSOLUTE AUTO 0.06 K/mm3 (0.00-0.10); IMMATURE GRAN PERCENT AUTO 1 % (0-1); LYMPHOCYTES ABSOLUTE AUTO 0.45 K/mm3 (0.84-5.20); LYMPHOCYTES PERCENT AUTO 4 % (21-46); MONOCYTES ABSOLUTE AUTO 0.22 K/mm3 (0.16-1.47); MONOCYTES PERCENT AUTO 2 % (4-13); Mean Corpuscular HGB Conc 31.2 g/dL (31.5-36.5); Mean Corpuscular Volume 88 fL (80-100); NEUTROPHILS ABSOLUTE AUTO 11.92 K/mm3 (1.96-9.15); NEUTROPHILS PERCENT AUTO 94 % (41-73); NRBC ABSOLUTE 0.00 K/mm3 (0.00-0.02); NRBC Auto 0.0 /100 WBC (0.0-0.2); Platelet Count 302 K/mm3 (150-400); RDW Coefficient Variation 16.8 % (11.7-14.2); RDW Standard Deviation 53.5 fL (35.1-46.3)
--- NOTE | 2025-02-22 04:36 | NUR ---
SHIFT SUMMARY Pt quite agitated at start of shift, cussing at staff, not allowing cares or medications, not directable. IM haldol given and pt later agreeable to night time meds. HR responded well to metoprolol (ST 160s --> 80s). Mentation continued to be labile - pt with rambling speech and very impulsive. Bed alarm and 1:[address] Remained on baseline 2L NC. Harsh/loose cough but not productive this shift. Intermittent wheezes. Incontinent of bowel several times - briefs in place. SBA to commode. L arm with reddened area with abrasions. Continue abx for UTI
[2025-02-22 04:49] LABS: Anion Gap 1.0 mmol/L (3-11); Blood Urea Nitrogen 19.0 mg/dL (8-24); CO2, Blood 40.0 mmol/L (21-32); Calcium, Blood 6.7 mg/dL (8.5-10.1); Chloride, Blood 97.0 mmol/L (98-108); Creatinine, Blood 0.86 mg/dL (0.40-1.00); Glucose, Blood 138.0 mg/dL (70-99); Potassium, Blood 3.4 mmol/L (3.5-5.5); Sodium, Blood 135.0 mmol/L (136-145)
[2025-02-22 05:40] LABS: Hematocrit 21.5 % (33.0-51.0); Hemoglobin 6.9 g/dL (11.5-16.0)
--- NOTE | 2025-02-22 06:56 | NUR ---
Hgb/Hct came back low on AM labs 6.9/22.1 - Dr. Goldstein notified. As no obvious source of bleeding and VSS, we did a redraw on H&H that confirmed Hgb 6.9. Dr. Goldstein notified of results and a type and screen was ordered, 1u PRBC ordered to transfuse, a guiac sample ordered as pt has had many stools. Pt will need to be consented for blood transfusion by day team.
--- NOTE | 2025-02-22 07:49 | NUR ---
ASSUMPTION OF CARE: PT SITTING UP IN BED WITH SITTER AT BEDSIDE. PT SLUMPED OVER AND ROCKING BACK AND FORTH. ANSWERS QUESITONS BUT IS NOT ORIENTED. STATES WE ARE IN [place] AND SAYS WE ARE IN A BUILDING. AGREEABLE TP VS BUT MINIMALLY COOPERATIVE WITH ASSESSMEN. THIS RN TO ASSUME CARE OF PT.
[2025-02-22 09:07] LABS: Ferritin, Serum 93.0 ng/mL (8-252); Magnesium, Blood 2.1 mg/dL (1.6-2.4); Total Iron Binding Capacity 221.0 ug/dL (250-450)
[2025-02-22] MEDS ORDERED: CALCIUM GLUC IN NACL, ISO-OSM 50 ML IV ONE (09:20)
[2025-02-22 10:34] LABS: Phosphorus, Blood 3.7 mg/dL (2.5-4.9)
[2025-02-22] MEDS ORDERED: NS 500 ML IV SCH (12:05)
--- NOTE | 2025-02-22 14:27 | NUR ---
SHIFT SUMMARY: PT CONTINUES TO BE ANXIOUS AND ADGITATED WHILE AWAKE. PT HAS SLEPT FOR A MAJORITY OF THE SHIFT. PTS DAUGHTER WAS CALLED THIS AM TO RECIEVE CONSENT FOR A BLOOD TRANSFUSION. PT WAS MADE MEDICAL STATUS. VSS. MAP >65. LUNG SOUNDS REMAIN PROFOUNDLY WHEEZY. NO OTHER SIGNIFICANT EVENTS HAPPEND DURING THIS SHIFT. REPORT TO LEON Persaud RN TO ASSUME CARE OF PT.
--- NOTE | 2025-02-22 15:47 | NUR ---
ASSUMED CARE OF PATIENT AT 1430; PT RESTING IN BED, WAKES TO VERBAL STIMULI. PT RECEIVING BLOOD, COMPLETED, RHONCHI NOTED BUT COUGHING TO CLEAR. VSS. CALL LIGHT WITHIN REACH. 1:1 SITTER AT BEDSIDE.
--- NOTE | 2025-02-22 18:40 | NUR ---
NO ACUTE CHAGNES FOR REMAINDER OF SHIFT. PT SLEEPING, IRRITABLE WHILE AWAKE. VSS. 1:1 SITTER AT BEDSIDE
[2025-02-23 04:10] VITALS: BP 124/75
[2025-02-23 04:11] LABS: BASOPHILS ABSOLUTE AUTO 0.00 K/mm3 (0.00-0.23); BASOPHILS PERCENT AUTO 0 % (0-2); EOSINOPHILS ABSOLUTE AUTO 0.00 K/mm3 (0.00-0.68); EOSINOPHILS PERCENT AUTO 0 % (0-6); Hematocrit 25.9 % (33.0-51.0); Hemoglobin 8.3 g/dL (11.5-16.0); IMMATURE GRAN ABSOLUTE AUTO 0.04 K/mm3 (0.00-0.10); IMMATURE GRAN PERCENT AUTO 1 % (0-1); LYMPHOCYTES ABSOLUTE AUTO 0.32 K/mm3 (0.84-5.20); LYMPHOCYTES PERCENT AUTO 4 % (21-46); MONOCYTES ABSOLUTE AUTO 0.17 K/mm3 (0.16-1.47); MONOCYTES PERCENT AUTO 2 % (4-13); Mean Corpuscular HGB Conc 32.0 g/dL (31.5-36.5); Mean Corpuscular Volume 89 fL (80-100); NEUTROPHILS ABSOLUTE AUTO 7.49 K/mm3 (1.96-9.15); NEUTROPHILS PERCENT AUTO 93 % (41-73); NRBC ABSOLUTE 0.00 K/mm3 (0.00-0.02); NRBC Auto 0.0 /100 WBC (0.0-0.2); Platelet Count 261 K/mm3 (150-400); RDW Coefficient Variation 15.8 % (11.7-14.2); RDW Standard Deviation 51.1 fL (35.1-46.3)
--- NOTE | 2025-02-23 04:23 | NUR ---
SHIFT SUMMARY Pt was completely appropriate this shift, being compliant with cares and pleasant with staff. VSS. Stool sample sent. 2 incontinent BMs that were pasty and dark. Remained on her baseline 2L NC.
[2025-02-23 04:34] LABS: Alanine Aminotransfer (ALT/SGP 118.0 U/L (12-78); Albumin, Blood 2.1 g/dL (3.4-5.0); Albumin/Globulin Ratio 0.7 (0.8-1.8); Anion Gap 5.0 mmol/L (3-11); Aspartate Aminotrans (AST/SGOT 30.0 U/L (12-37); Bilirubin, Total 0.7 mg/dL (0.1-1.0); Blood Urea Nitrogen 18.0 mg/dL (8-24); CO2, Blood 37.0 mmol/L (21-32); Calcium, Blood 8.1 mg/dL (8.5-10.1); Chloride, Blood 99.0 mmol/L (98-108); Creatinine, Blood 0.65 mg/dL (0.40-1.00); Globulin, Blood 3.1 g/dL (2.2-4.0); Glucose, Blood 181.0 mg/dL (70-99); Potassium, Blood 3.3 mmol/L (3.5-5.5); Sodium, Blood 138.0 mmol/L (136-145); Total Protein, Blood 5.2 g/dL (6.4-8.2)
[2025-02-23 07:42] VITALS: BP 139/69
[2025-02-23] MEDS ORDERED: Sod Ferric Gluc Complx/Sucrose 125 MG in NS 100 ML IV SCH (09:00)
--- NOTE | 2025-02-23 09:00 | NUR ---
PT IS A&Ox4 AND ABLE TO MAKE NEEDS KNOWN. SHE IS ON 2LNC (BASELINE) W/O2 SATS > 92%. SHE IS A SBA TO THE BSC. SHE CONTINUES TO HAVE LOOSE BM'S. NO OTHER NEEDS OR CONCERNS NOTED @ THIS TIME. BED IN LOW POSITION, BED ALARM ON, CALL LIGHT AND PERSONAL BELONGINGS IN REACH.
[2025-02-23 09:52] LABS: Stool Occult Blood Guaiac 1 Pos (Neg)
[2025-02-23] MEDS ORDERED: Pantoprazole Sodium 40 MG Injection IV SCH (11:00)
[2025-02-23 11:24] VITALS: BP 142/82
--- NOTE | 2025-02-23 13:15 | NUR ---
REPORT GIVEN TO JUANCARLOS MCKEON FOR PT TO GO TO RM [id number].
[2025-02-23 15:48] VITALS: BP 147/85
[2025-02-23] MEDS ORDERED: CefTRIAXone Sodium 1,000 MG in NS 100 ML IV SCH (16:00)
[2025-02-23] MEDS ORDERED: NS 250 ML IV PRN (16:50)
[2025-02-23 17:46] LABS: Hematocrit 28.6 % (33.0-51.0); Hemoglobin 8.9 g/dL (11.5-16.0)
--- NOTE | 2025-02-23 18:18 | NUR ---
SHIFT SUMMARY- PT TRANSFERED TO MEDICAL FROM PCU. SHE HAS HAD NO ACUTE CHANGE SINCE TRANSFER, RFA IV IS NOT PATENT AND WILL BE DC'D SHORTLY. PT HAS A CLARK PG THAT DOES DRAW BLOOD. PT IS A 1PA TO THE BSC. SHE CURRENTLY IS ON HER HOME DOSE OF O2, IV ABX RUNNING, THEN SL. WILL PASS ON IN BEDSIDE REPORT.
[2025-02-23 21:02] VITALS: BP 147/96
--- NOTE | 2025-02-23 22:04 | NUR ---
NURSING NOTE: BREAK NURSE FOUND PT SITTING ON COMMODE AND IN RESP DISTRESS, SATTING IN MID TO LOW 80S. NC OFF. PLACED BACK ON NC NA DBUMPES TO 6L WAS ABLE TO GET SATS BACK UP TO THE 90'S. O2 BROUGHT DOWN TO 2L WHICH IS BL. PT COMPLAINING OF DIFFICULTY BREATHING, RETRACTING AND GRUNTING HEAVILY, BECAME VERY ANXIOUS. CALLED RESPIRATORY TO BRING BREATHING TREATMENT, PT WAS INCREDIBLY ANXIOUS AND HAD DIFFICULTY FOLLOWING COMMANDS AND HAD TO BE PUT ON MASK FOR BREATHING TREATMENT. TALKED TO PT WHO SLOWLY CALMED DOWN AND WAS ABLE TO TOLERATE BREATHING TREATMENT. STARTED COMPLAINING OF 4/10 BURNING PAIN IN THE EPIGASTRIC AREA, MEDICATED PER EMR. PT SATTING WELL, AND BREATHING CALMLY NOW. IN BED RESTING. BED IN LOWEST POSITION, CALL LIGHT IN REACH. CONTINUING CARE.
[2025-02-24] VITALS (12 sets, daily range): BP systolic 104–150; BP diastolic 69–104
[2025-02-24 01:03] LABS: BASOPHILS ABSOLUTE AUTO 0.01 K/mm3 (0.00-0.23); BASOPHILS PERCENT AUTO 0 % (0-2); EOSINOPHILS ABSOLUTE AUTO 0.00 K/mm3 (0.00-0.68); EOSINOPHILS PERCENT AUTO 0 % (0-6); Hematocrit 27.5 % (33.0-51.0); Hemoglobin 8.6 g/dL (11.5-16.0); IMMATURE GRAN ABSOLUTE AUTO 0.06 K/mm3 (0.00-0.10); IMMATURE GRAN PERCENT AUTO 1 % (0-1); LYMPHOCYTES ABSOLUTE AUTO 0.37 K/mm3 (0.84-5.20); LYMPHOCYTES PERCENT AUTO 3 % (21-46); MONOCYTES ABSOLUTE AUTO 0.44 K/mm3 (0.16-1.47); MONOCYTES PERCENT AUTO 4 % (4-13); Mean Corpuscular HGB Conc 31.3 g/dL (31.5-36.5); Mean Corpuscular Volume 92 fL (80-100); NEUTROPHILS ABSOLUTE AUTO 10.02 K/mm3 (1.96-9.15); NEUTROPHILS PERCENT AUTO 92 % (41-73); NRBC ABSOLUTE 0.00 K/mm3 (0.00-0.02); NRBC Auto 0.0 /100 WBC (0.0-0.2); Platelet Count 257 K/mm3 (150-400); RDW Coefficient Variation 15.9 % (11.7-14.2); RDW Standard Deviation 52.5 fL (35.1-46.3)
[2025-02-24 01:06] LABS: pH Blood Venous 7.37 (7.34-7.37)
[2025-02-24 01:24] LABS: Alanine Aminotransfer (ALT/SGP 97.0 U/L (12-78); Albumin, Blood 2.3 g/dL (3.4-5.0); Albumin/Globulin Ratio 0.7 (0.8-1.8); Anion Gap 3.0 mmol/L (3-11); Aspartate Aminotrans (AST/SGOT 23.0 U/L (12-37); Bilirubin, Total 0.4 mg/dL (0.1-1.0); Blood Urea Nitrogen 18.0 mg/dL (8-24); CO2, Blood 40.0 mmol/L (21-32); Calcium, Blood 8.1 mg/dL (8.5-10.1); Chloride, Blood 100.0 mmol/L (98-108); Creatinine, Blood 0.66 mg/dL (0.40-1.00); Globulin, Blood 3.2 g/dL (2.2-4.0); Glucose, Blood 179.0 mg/dL (70-99); Magnesium, Blood 1.9 mg/dL (1.6-2.4); Phosphorus, Blood 1.8 mg/dL (2.5-4.9); Potassium, Blood 4.1 mmol/L (3.5-5.5); Sodium, Blood 139.0 mmol/L (136-145); Total Protein, Blood 5.5 g/dL (6.4-8.2)
--- NOTE | 2025-02-24 03:03 | NUR ---
NURSING NOTE: PT CONTINUES TO HAVE SIGNIFICANT INCREASED WORK OF BREATHING AT TIMES. SATS MAINTAIN >90% ON 2L WHICH IS BL, BUT PT IS RETRACTING AND NOT MOVING AIR WELL. LUNG SOUNDS ARE INCREASINGLY DIMINISHED AND PT GETS TACHYCARDIC AND EXTREMELY ANXIOUS DURING EPISODES. 3 BREATHING TREATMENTS HAVE BEEN GIVEN THIS SHIFT SO FAR TO COMBAT THIS. PROVIDER NOTIFIED, VBG AND CHEST XRAY ORDERED. PT IN BED RESTING, STLL RETRACTING BUT LESS DISTRESS. ONE TIME ORDER OF ATIVAN GIVEN. PT IN BED RESTING, BED IN LOWEST POSITION, CALL LIGHT IN REACH. CONTINUING CARE.
--- NOTE | 2025-02-24 05:23 | NUR ---
SHIFT SUMMARY: PT AOX4, SOME FORGETFULLNESS, VERY ANXIOUS. PER LAST NURSING NOTE, SEVERAL TIMES, AWOKE IN RESPIRATORY DISTRESS. SOUNDING VERY TIGHT. SATTING WELL ON 2L BUT RETRACTING AND INCREASED WORK OF BREATHING. PT REQUIRED MULTIPLE BREATHING TREATMENTS AND NEEDED CONSTANT REASSURANCE TO BREATH IN AND TAKE GOOD BREATHS. PROVIDER NOTIFIED, VBG, AND CHEST XRAY ORDERED. AFTER ANOTHER EPISODE, PROVIDER ORDERED A 1 TIME DOSE OF .5 ATIVAN WHICH PT TOLERATED WELL. VBG REVEALED RETAINING CO2, DISCUSSED WITH PT USING BIPAP WHICH SHE AGREED TO. PT MUCH MORE AGREEABLE AND CONSOLUBLE WITH ATIVAN. PLACED ON BIPAP AND TOLERATING WELL. PENDING X RAY RESULTS. PT IN BED SLEEPING, BED IN LOWEST POSITION, CALL LIGHT IN REACH. CONTINUING CARE.
--- NOTE | 2025-02-24 07:00 | NUR ---
ASSUMED CARE OF PT- PT SITTING AT THE EOB AT THE TIME OF BEDSIDE REPORT, SHE IS TRIPODING AND USING ACCESSORY MUSCLES TO BREATHE. RT AT THE BEDSIDE PROVIDING BREATHING Tx. PER REPORT PT RECIEVED ATIVAN AND WAS PLACED ON BIPAP LAST NIGHT AFTER VBG SHOWED INCREASED CO2. CALLED DR MELENDREZ AND HE IS AWARE IN THE CHANGE IN PT. TRANSFER TO PCU ORDERED. HEMATOLOGIST ONCOLOGIST NOTIFIED OF NEED FOR PCU BED. PT PLACED BACK ON BIPAP AT THIS TIME.
[2025-02-24] MEDS ORDERED: Sodium Phosphate 25 MM in Dextrose 5% 500 ML IV STA (07:22)
[2025-02-24] MEDS ORDERED: Ipratropium/Albuterol SulF 2.5-0.5MG/3 ML Amp INH PRN (07:35)
[2025-02-24] MEDS ORDERED: Multivitamins 1 Tab PO SCH (09:00)
[2025-02-24] MEDS ORDERED: Ipratropium/Albuterol SulF 2.5-0.5MG/3 ML Amp INH SCH (11:10)
[2025-02-24] MEDS ORDERED: LORazepam 2 MG/ML 1ML Injection IV PRN (12:40)
--- NOTE | 2025-02-24 12:46 | NUR ---
AOC: PATIENT IS ALERT AND ORIENTED X 4, HAVING SOME DISTRESS WITH BREATHING, REQUIRED IMMEDIATE INTERVENTION FROM ORIENTEE, THIS RN AND RT TO HELP SETTLE HER, CHANGE SETTING ON CPAP, RECIEVED BREATHING TREATMENT, AND WAS ABLE TO CONTROL HER BREATHING ON BIPAP. WAS TOO DISTRESSED TO HAVE ECHO, HOWEVER, AFTER THIS EVENT RELAYED THEM SHE WOULD BE ABLE TO GET ECHO ON BIPAP. PATIENT WAS LAUREN TO REST FOR APPROXIMATELY 1 HOUR, THAN BECAME DISTRESSED YET AGAIN, ENDORSING THAT SHE CANT BREATH. PATIENT WAS COACHED AND GIVEN SMALL BREAK ON 3L NC WHILE BED BATH, PUREWICK PLACEMENT AND LINEN CHANGE PREFORMED. PATIENT HAD TO THAN BE PLACED BACK ON BIPAP, CALL TO HOSPITALISTDEREK TO STOP HER PHOS INFUSION APPROIMATELY 400mL IN, 1 X LASIX, AND PRN ATIVAN ORDER RECIEVED. PATIENT TOLERATING BIPAP WITHOUT ATIVAN, HOWEVER, MAY NEED IF LASIX DOES NOT IMPROVE HER WOB AND SOB. PATIENT AGREEABLE TO PLAN, DENIES CHEST PAIN PRESSURE. CONTINUOUS O2 AND TELE MONITORING IN [place]. LIFTED/ASSESSED SACRUM MEPILEX, SKIN IS C/D/I. ACUTE CONCERNS ADRESSED, KEEPING NPO PATIENT VERY SICKLY AND HIGH RISK FOR DETERIORATION.
[2025-02-24] MEDS ORDERED: Furosemide 10 MG / ML 2ML Vial IV ONE (13:00)
[2025-02-24] MEDS ORDERED: Potassium Phos/Sodium Phos 250 MG PACK PO SCH (16:30)
--- NOTE | 2025-02-24 18:08 | NUR ---
SHIFT SUMMARY REMOVED BIPAP AND PLACED ON 2L NC, PT TOLERATING WELL. SATS >95%. TOLERATING ORAL NUTRITION WELL. PURE WICK IN PLACE DRAINING TO SUCTION. WITH GOOD OUTPUT AND SEVERAL UNMEASURED VOIDS DUE TO PUREWICK POSITION. WOB HAS IMPROVED WELL SOB. CONTINUING IV LASIX AND SOLUMEDROL. DENIES CHEST PAIN/PRESSURE AT THIS TIME. ECHO COMPLETED WITH RESULTS IN CHART. PATIENT RESTING COMFORTABLY IN BED IN LOWEST POSITION WITH CALL LIGHT IN REACH. R POWERGLIDE PATENT WITH BLOOD RETURN.
[2025-02-24 18:23] LABS: Anion Gap 6.0 mmol/L (3-11); Blood Urea Nitrogen 14.0 mg/dL (8-24); CO2, Blood 39.0 mmol/L (21-32); Calcium, Blood 8.6 mg/dL (8.5-10.1); Chloride, Blood 95.0 mmol/L (98-108); Creatinine, Blood 0.56 mg/dL (0.40-1.00); Glucose, Blood 171.0 mg/dL (70-99); Potassium, Blood 3.3 mmol/L (3.5-5.5); Sodium, Blood 137.0 mmol/L (136-145)
--- NOTE | 2025-02-24 18:25 | NUR ---
INCREASED WOB NOTED. PLACED BACK ON BIPAP. SETTINGS IN CHART.
--- NOTE | 2025-02-24 19:08 | NUR ---
ACUTE CHANGE: PATIENT AT APPROXIMATELY 1830 STARTED HAVING MORE INCREASED WOB, INTOLERANT OF BIPAP AT FIRST, WAS ABLE TO HAVE RT AND RESIDENT TO BEDSIDE PATIENT GIVEN 1MG TOTAL OF ATIVAN, BREATHING TREATMENT GIVEN, BLOD PRESSURE SLIGHTLY HYPERTENSIVE, RR INTO THE 40'S. PATIENT DUSKY APPEARING SHE WAS ON ARRIVAL. PATIENT WITH MULTIPLE RUNS OF HR INTO THE 140-170'S ST/SVT. PATIENT DENIED CHEST PAIN, VERY ANXIOUS WITH SENSE OF DOOM. PROIVDER PLACING ORDERS, REPORT GIVEN TO NIGHT RN, CONCERNS ADDRESSED AT THIS TIME.
[2025-02-24] MEDS ORDERED: Magnesium Sulf 2 GM/Water 50ML 50 ML IV STA (19:09)
[2025-02-25] VITALS (13 sets, daily range): BP systolic 110–147; BP diastolic 71–96
[2025-02-25 04:06] LABS: BASOPHILS ABSOLUTE AUTO 0.01 K/mm3 (0.00-0.23); BASOPHILS PERCENT AUTO 0 % (0-2); EOSINOPHILS ABSOLUTE AUTO 0.00 K/mm3 (0.00-0.68); EOSINOPHILS PERCENT AUTO 0 % (0-6); Hematocrit 27.8 % (33.0-51.0); Hemoglobin 8.7 g/dL (11.5-16.0); IMMATURE GRAN ABSOLUTE AUTO 0.05 K/mm3 (0.00-0.10); IMMATURE GRAN PERCENT AUTO 1 % (0-1); LYMPHOCYTES ABSOLUTE AUTO 0.36 K/mm3 (0.84-5.20); LYMPHOCYTES PERCENT AUTO 6 % (21-46); MONOCYTES ABSOLUTE AUTO 0.13 K/mm3 (0.16-1.47); MONOCYTES PERCENT AUTO 2 % (4-13); Mean Corpuscular HGB Conc 31.3 g/dL (31.5-36.5); Mean Corpuscular Volume 90 fL (80-100); NEUTROPHILS ABSOLUTE AUTO 5.89 K/mm3 (1.96-9.15); NEUTROPHILS PERCENT AUTO 91 % (41-73); NRBC ABSOLUTE 0.00 K/mm3 (0.00-0.02); NRBC Auto 0.0 /100 WBC (0.0-0.2); Platelet Count 281 K/mm3 (150-400); RDW Coefficient Variation 15.9 % (11.7-14.2); RDW Standard Deviation 52.3 fL (35.1-46.3)
--- NOTE | 2025-02-25 04:11 | NUR ---
SHIFT SUMMARY Pt slept well on BiPAP. 2L NC while awake. HR 80s while resting, up to 130 briefly when up to commode. Good UOP. Pleasant and appropriate
[2025-02-25 04:44] LABS: Anion Gap 7.0 mmol/L (3-11); Blood Urea Nitrogen 15.0 mg/dL (8-24); CO2, Blood 40.0 mmol/L (21-32); Calcium, Blood 8.1 mg/dL (8.5-10.1); Chloride, Blood 93.0 mmol/L (98-108); Creatinine, Blood 0.53 mg/dL (0.40-1.00); Glucose, Blood 229.0 mg/dL (70-99); Magnesium, Blood 2.4 mg/dL (1.6-2.4); Phosphorus, Blood 2.1 mg/dL (2.5-4.9); Potassium, Blood 3.7 mmol/L (3.5-5.5); Sodium, Blood 136.0 mmol/L (136-145)
--- NOTE | 2025-02-25 04:57 | NUR ---
Pt up to commode and HR up to 170s, ST. Large loose stool, still quite dark/green. Back to bed and HR recovered to 110s, BP 140s. Dyspnea with activity.
[2025-02-25] MEDS ORDERED: Potassium Phosphate Dibasic 15 MM in Dextrose 5% 250 ML IV STA (07:35)
[2025-02-25] MEDS ORDERED: Furosemide 10 MG / ML 2ML Vial IV SCH (09:00)
[2025-02-25 17:24] LABS: Anion Gap 6.0 mmol/L (3-11); Blood Urea Nitrogen 15.0 mg/dL (8-24); CO2, Blood 42.0 mmol/L (21-32); Calcium, Blood 7.9 mg/dL (8.5-10.1); Chloride, Blood 90.0 mmol/L (98-108); Creatinine, Blood 0.57 mg/dL (0.40-1.00); Glucose, Blood 161.0 mg/dL (70-99); Potassium, Blood 3.7 mmol/L (3.5-5.5); Sodium, Blood 134.0 mmol/L (136-145)
--- NOTE | 2025-02-25 18:50 | NUR ---
SHIFT SUMMARY PT IS A&0 X4, ABLE TO EXPRESS NEEDS. 1 ASSIST TO TRANSFER. PT IS SATTING > 93% ON 2L O2 NC, EVEN WITH ACTIVITY. STATES THAT SHE HAS MILD SOB AT BASELINE, AND IT IS NOT INCREASED FROM BASELINE AT THIS TIME. SHE HAS BEEN TACHY, WITH FREQUENT RUNS OF SVT. HR GETTING UP TO 170, HOWEVER, NONE OF THE RUNS OF SVT HAVE BEEN SUSTAINED. DR LOPEZ, METOPROLOL HAS BEEN UPDATED TO BID. BPs STABLE. PT WORKED WITH PHYSICAL THERAPY THIS AFTERNOON, CLEARED TO AMBULATE TO BATHROOM. PT'S DAUGHTER HAS BEEN IN THE ROOM AND UPDATED ON CARE. SEE NOTES FOR UPDATES.
[2025-02-26] VITALS (7 sets, daily range): BP systolic 103–134; BP diastolic 54–90
--- NOTE | 2025-02-26 02:50 | NUR ---
SHIFT SUMMARY: PT IS A&OX4, PLEASANT AND COOPERATIVE WITH CARE. VSS ON 3-4 L OXYGEN VIA NC AND BIPAP WITH A 2L BLEED IN. SATS >95%. SHE WAS ABLE TO WEAR HER BIPAP FOR 3.5 HOURS TONITE. SR IN THE 90'S -110. SHE DID HAVE 2 RUNS OF SVT ONE FOR 25 SEC AND ONE FOR 7.5 SEC. SHE WAS ABLE TO SLEEP MOST OF NIGHT. DENIES PAIN THIS SHIFT. TOLERATING A MIST AND MOIST LEVEL 5 DIET. TAKES MEDS WHOLE WITH WATER. POWER GLIDE INTACT TO RIGHT UPPER ARM SL.SHE DID TAKE ATIVAN X 1 TO HELP WITH HER ANXIETY OF WEARING THE BIPAP. GOT UP TO THE COMMODE WITH A 1 PERSON ASSIST. BED IN LOWEST POSITION, CALL LIGHT WITHIN REACH. BED ALARM ON. CALLS APPROPRIATELY AND IS ABLE TO ADVOCATE NEEDS EFFECTIVELY.
[2025-02-26 03:49] LABS: BASOPHILS ABSOLUTE AUTO 0.01 K/mm3 (0.00-0.23); BASOPHILS PERCENT AUTO 0 % (0-2); EOSINOPHILS ABSOLUTE AUTO 0.02 K/mm3 (0.00-0.68); EOSINOPHILS PERCENT AUTO 0 % (0-6); Hematocrit 26.9 % (33.0-51.0); Hemoglobin 8.5 g/dL (11.5-16.0); IMMATURE GRAN ABSOLUTE AUTO 0.10 K/mm3 (0.00-0.10); IMMATURE GRAN PERCENT AUTO 1 % (0-1); LYMPHOCYTES ABSOLUTE AUTO 0.51 K/mm3 (0.84-5.20); LYMPHOCYTES PERCENT AUTO 4 % (21-46); MONOCYTES ABSOLUTE AUTO 0.34 K/mm3 (0.16-1.47); MONOCYTES PERCENT AUTO 3 % (4-13); Mean Corpuscular HGB Conc 31.6 g/dL (31.5-36.5); Mean Corpuscular Volume 90 fL (80-100); NEUTROPHILS ABSOLUTE AUTO 10.52 K/mm3 (1.96-9.15); NEUTROPHILS PERCENT AUTO 91 % (41-73); NRBC ABSOLUTE 0.00 K/mm3 (0.00-0.02); NRBC Auto 0.0 /100 WBC (0.0-0.2); Platelet Count 295 K/mm3 (150-400); RDW Coefficient Variation 16.2 % (11.7-14.2); RDW Standard Deviation 52.7 fL (35.1-46.3)
[2025-02-26 04:10] LABS: Anion Gap 8.0 mmol/L (3-11); Blood Urea Nitrogen 15.0 mg/dL (8-24); CO2, Blood 42.0 mmol/L (21-32); Calcium, Blood 7.9 mg/dL (8.5-10.1); Chloride, Blood 92.0 mmol/L (98-108); Creatinine, Blood 0.52 mg/dL (0.40-1.00); Glucose, Blood 163.0 mg/dL (70-99); Magnesium, Blood 1.8 mg/dL (1.6-2.4); Phosphorus, Blood 3.5 mg/dL (2.5-4.9); Potassium, Blood 3.5 mmol/L (3.5-5.5); Sodium, Blood 138.0 mmol/L (136-145)
--- NOTE | 2025-02-26 08:47 | NUR ---
AM NOTE PT ALERT, ORIENTED X4; CALM AND COOPERATIVE WITH CARE. PT RESTING IN BED. UP WITH 1 PERSON SBA TO BSC. PT REPORTS HEADACHE, MEDICATED WITH TYLENOL. PT DENIES CHEST PAIN/PRESSURE, SOB, NAUSEA, DIZZINESS AND NUMB/TINGLING. SPO2 >90% ON 2L O2 VIA NC, BASELINE, INS/EXP WHEEZES WITH CRACKLES IN BASES. TELE SINUS 100'S, RUNS OF SVT, BP STALBE. MEDICATED WITH SCHEDULED METOPROLOL THIS AM. ABD SOFT, NONTENDER, +BT. NO EDEMA NOTED. OTHER VSS.
--- NOTE | 2025-02-26 10:49 | NUR ---
Patient continues to report headache, requesting more tylenol, and asking for pepto for heart burn, notified Dr Isabella Dr to place orders.
--- NOTE | 2025-02-26 17:17 | NUR ---
SHIFT SUMMARY THIS EVENING PT REPORTING CHEST PAIN; STATING IS THUMBING IN HER CHEST; HR 90-120, TOUCHING 150 T/O SHIFT; DR MELENDREZ AT BEDSIDE, NO NEW ORDERS, PAIN RELEIVED ON ITS OWN. OTHER VSS. NO OTHER ACUTE CHAGNES NOTED. CALL LIGHT WITHIN REACH.
[2025-02-27] VITALS (7 sets, daily range): BP systolic 125–147; BP diastolic 64–96
--- NOTE | 2025-02-27 02:34 | NUR ---
SHIFT SUMMARY: PT IS A&OX4, PLEASANT AND COOPERATIVE WITH CARE. VSS ON 2 L OXYGEN VIA NC AND BIPAP WITH A 2L BLEED IN. SATS >95%. SHE WAS ABLE TO WEAR HER BIPAP FOR A SHORT TIME TONITE. SR IN THE 90 S-110 AND IF SHES MOVING AROUND IT WILL GO UP TO THE 150' S. NO EPISODES OF SVT THIS SHIFT. SHE WAS ABLE TO SLEEP MOST OF NIGHT. C/O PAIN TO HER BACK AND HEAD, MEDICATED WITH TYLENOL. TOLERATING A MINCED AND MOIST LEVEL 5 DIET. TAKES MEDS WHOLE WITH WATER. POWER GLIDE INTACT TO RIGHT UPPER ARM SL.SHE DID TAKE ATIVAN X 1 TO HELP WITH HER ANXIETY OF WEARING THE BIPAP. GOT UP TO THE COMMODE WITH A 1 PERSON ASSIST. BED IN LOWEST POSITION, CALL LIGHT WITHIN REACH. CALLS APPROPRIATELY AND IS ABLE TO ADVOCATE NEEDS EFFECTIVELY.
[2025-02-27 03:54] LABS: BASOPHILS ABSOLUTE AUTO 0.02 K/mm3 (0.00-0.23); BASOPHILS PERCENT AUTO 0 % (0-2); EOSINOPHILS ABSOLUTE AUTO 0.01 K/mm3 (0.00-0.68); EOSINOPHILS PERCENT AUTO 0 % (0-6); Hematocrit 27.4 % (33.0-51.0); Hemoglobin 8.6 g/dL (11.5-16.0); IMMATURE GRAN ABSOLUTE AUTO 0.23 K/mm3 (0.00-0.10); IMMATURE GRAN PERCENT AUTO 1 % (0-1); LYMPHOCYTES ABSOLUTE AUTO 1.13 K/mm3 (0.84-5.20); LYMPHOCYTES PERCENT AUTO 6 % (21-46); MONOCYTES ABSOLUTE AUTO 1.40 K/mm3 (0.16-1.47); MONOCYTES PERCENT AUTO 8 % (4-13); Mean Corpuscular HGB Conc 31.4 g/dL (31.5-36.5); Mean Corpuscular Volume 90 fL (80-100); NEUTROPHILS ABSOLUTE AUTO 15.21 K/mm3 (1.96-9.15); NEUTROPHILS PERCENT AUTO 84 % (41-73); NRBC ABSOLUTE 0.02 K/mm3 (0.00-0.02); NRBC Auto 0.1 /100 WBC (0.0-0.2); Platelet Count 338 K/mm3 (150-400); RDW Coefficient Variation 16.7 % (11.7-14.2); RDW Standard Deviation 54.5 fL (35.1-46.3)
[2025-02-27 04:17] LABS: Anion Gap 7.0 mmol/L (3-11); Blood Urea Nitrogen 15.0 mg/dL (8-24); CO2, Blood 39.0 mmol/L (21-32); Calcium, Blood 8.2 mg/dL (8.5-10.1); Chloride, Blood 92.0 mmol/L (98-108); Creatinine, Blood 0.53 mg/dL (0.40-1.00); Glucose, Blood 117.0 mg/dL (70-99); Phosphorus, Blood 3.2 mg/dL (2.5-4.9); Potassium, Blood 3.2 mmol/L (3.5-5.5); Sodium, Blood 135.0 mmol/L (136-145)
--- NOTE | 2025-02-27 09:35 | NUR ---
ASSUMPTION OF CARE: ASSUMED CARE OF PT AT APPROX 0720. PT A/O X4, ABLE TO MAKE NEEDS KNOWN. STRENGTH EQUAL BILATERALLY. SBA TO BATHROOM. C/O HEADACHE THIS MORNING, MEDICATED PER EMAR. PT ON 2L O2 NC, WHICH IS BASELINE. BIPAP AT NOC. DENIES SOB. NSR 90-110s, DENIES CHEST PAIN/PRESSURE. ALL OTHER VITAL SIGNS STABLE. PT SITTING UP IN CHAIR, CALL IN REACH.
--- NOTE | 2025-02-27 16:50 | NUR ---
SHIFT SUMMARY: PT ALERT AND ORIENTED X3, ABLE TO FOLLOW COMMANDS AND MAKE NEEDS KNOWN. FORGETFUL AT TIMES. BED ALARM ON FOR SAFETY. BP AND HR STABLE. AFEBRILE. SPO2 >96% ON 2L NC. LUNG SOUNDS CLEAR THROUGHOUT. ABD SOFT, NON TENDER, BOWEL SOUNDS +. PULSES STRONG AND EQUAL THROUGHOUT. PT SBA TO AND FROM BATHROOM. POSSIBLE DISCHARGE IN AM. PT XFERING TO ROOM MEDICAL 310. BED IN LOW, CALL LIGHT IN REACH, WILL REPORT TO MED RN.
--- NOTE | 2025-02-27 17:54 | NUR ---
RECEIVED REPORT FROM ANNABELLE RN
--- NOTE | 2025-02-27 18:19 | NUR ---
PATIENT ARRIVED TO THE UNIT VIA WHEELCHAIR. WAS ABLE TO SELF TRANSFER TO THE BED. SETTLED IN ROOM. CALL LIGHT PROVIDED, BED ALARM SET. NO SIGNS OR SYMPTOMS OF DISTRESS,PLAN OF CARE ONGOING.
[2025-02-28 02:40] VITALS: BP 138/81
[2025-02-28 05:00] LABS: BASOPHILS ABSOLUTE AUTO 0.01 K/mm3 (0.00-0.23); BASOPHILS PERCENT AUTO 0 % (0-2); EOSINOPHILS ABSOLUTE AUTO 0.06 K/mm3 (0.00-0.68); EOSINOPHILS PERCENT AUTO 0 % (0-6); Hematocrit 29.8 % (33.0-51.0); Hemoglobin 9.1 g/dL (11.5-16.0); IMMATURE GRAN ABSOLUTE AUTO 0.42 K/mm3 (0.00-0.10); IMMATURE GRAN PERCENT AUTO 3 % (0-1); LYMPHOCYTES ABSOLUTE AUTO 1.15 K/mm3 (0.84-5.20); LYMPHOCYTES PERCENT AUTO 8 % (21-46); MONOCYTES ABSOLUTE AUTO 1.07 K/mm3 (0.16-1.47); MONOCYTES PERCENT AUTO 8 % (4-13); Mean Corpuscular HGB Conc 30.5 g/dL (31.5-36.5); Mean Corpuscular Volume 93 fL (80-100); NEUTROPHILS ABSOLUTE AUTO 11.36 K/mm3 (1.96-9.15); NEUTROPHILS PERCENT AUTO 81 % (41-73); NRBC ABSOLUTE 0.00 K/mm3 (0.00-0.02); NRBC Auto 0.0 /100 WBC (0.0-0.2); Platelet Count 319 K/mm3 (150-400); RDW Coefficient Variation 17.1 % (11.7-14.2); RDW Standard Deviation 55.8 fL (35.1-46.3)
[2025-02-28 05:12] LABS: Anion Gap 5.0 mmol/L (3-11); Blood Urea Nitrogen 20.0 mg/dL (8-24); CO2, Blood 40.0 mmol/L (21-32); Calcium, Blood 8.2 mg/dL (8.5-10.1); Chloride, Blood 95.0 mmol/L (98-108); Creatinine, Blood 0.53 mg/dL (0.40-1.00); Glucose, Blood 123.0 mg/dL (70-99); Potassium, Blood 4.8 mmol/L (3.5-5.5); Sodium, Blood 135.0 mmol/L (136-145)
--- NOTE | 2025-02-28 06:38 | NUR ---
PT REMAINS ON 2L O2 NC IS HER BASELINE, NO CARDIAC EVENTS PER TELE. PTS ORIENTATION TO TIME FLUCTUATES THROUGHOUT SHIFT. FORGETS HOW LONG IT HAS BEEN BETWEEN BREATHING TREATMENTS. PT ABLE TO AMBULATE WITH MINIMAL ASSISTANCE MOSTLY SBA FOR CORD MANAGEMENT. PT HAD 1 BROWN BM THIS SHIFT STATES THAT IT WAS PREVIOUSLY BLACK BUT HAS TRANSITIONED TO BROWN. USES CALL LIGHT APPROPRIATELY AND IS PLEASANT.
[2025-02-28 07:21] VITALS: BP 136/76
[2025-02-28] MEDS ORDERED: FEROSUL325 M1 PO (10:39)
[2025-02-28] MEDS ORDERED: JARDIANCE10 MG PO (10:39)
[2025-02-28] MEDS ORDERED: AIRDUO DIGIHAL1 EAC2 INH (10:40)
[2025-02-28] MEDS ORDERED: VISBIOME 112.51 EACH PO (10:41)
[2025-02-28] MEDS ORDERED: FURO20 PO (10:41)
[2025-02-28] MEDS ORDERED: METO50ER PO (10:42)
[2025-02-28] MEDS ORDERED: ONE DAILY ESS400 MCG PO (10:44)
[2025-02-28] MEDS ORDERED: NICO21TP TOP (10:44)
[2025-02-28] MEDS ORDERED: PANT40 PO (10:44)
[2025-02-28] MEDS ORDERED: K-Dur20 MEQ PO (10:45)
[2025-02-28] MEDS ORDERED: VITAMIN B-1100 MG PO (10:46)
[2025-02-28] MEDS ORDERED: SPIR25 PO (10:46)
[2025-02-28] MEDS ORDERED: Seroquel Xr50 MG PO (10:46)
--- NOTE | 2025-02-28 11:15 | NUR ---
DISCHARGEINSTRUCTIONS REVIEWED AND PT QUESTIONS ANSWERED. PT STATES SHE FEELS SHE IS READY TO DISCHARGE. PRESCRIPTION FOR KLONOPIN GIVEN TO PATIENT, OTHER MEDSFAXED TO [facility]. OT DISCHARGED HOME WITH DAUGHTER AT 1107
== END 2025-02-28 11:12 | disposition home health service (06) | DRG 871 ==
LOC: ER 09:14 → ERHOLD 14:35 → PCU 14:35 → MEDS 02-23 13:27 → PCU 02-24 10:06 → MEDS 02-27 18:02 → ENPENDDIS 02-28 10:02 → MEDS 02-28 11:12
PROVIDERS: Emergency Medicine; Internal Medicine; Student in an Organized Health Care Education/Training Program; ADMIT Internal Medicine
PROC: 3E03329 Introduction of Other Anti-infective into Peripheral Vein, Percutaneous Approach (ICD-10-PCS; principal; 2025-02-20)
PROC: 5A09357 Assistance with Respiratory Ventilation, Less than 24 Consecutive Hours, Continuous Positive Airway Pressure (ICD-10-PCS; 2025-02-24)
DX: A41.51 Sepsis due to Escherichia coli [E. coli] (principal); G92.8 Other toxic encephalopathy; J96.21 Acute and chronic respiratory failure with hypoxia; J96.22 Acute and chronic respiratory failure with hypercapnia; I50.21 Acute systolic (congestive) heart failure; N17.9 Acute kidney failure, unspecified; J44.1 Chronic obstructive pulmonary disease with (acute) exacerbation; R64 Cachexia; R65.20 Severe sepsis without septic shock; M54.50 Low back pain, unspecified; G89.29 Other chronic pain; F41.9 Anxiety disorder, unspecified; I11.0 Hypertensive heart disease with heart failure; R00.0 Tachycardia, unspecified; D50.9 Iron deficiency anemia, unspecified; F17.210 Nicotine dependence, cigarettes, uncomplicated; F15.90 Other stimulant use, unspecified, uncomplicated; E87.6 Hypokalemia; Z99.81 Dependence on supplemental oxygen; Z86.19 Personal history of other infectious and parasitic diseases; Z79.52 Long term (current) use of systemic steroids; Z79.899 Other long term (current) drug therapy; Z88.1 Allergy status to other antibiotic agents; Z88.5 Allergy status to narcotic agent; Z91.038 Other insect allergy status
CPT/HCPCS: 36415; 36430; 70450; 71045; 74177; 80048; 80053; 80320; 81001; 82140; 82270; 82330; 82550; 82607; 82728; 82746; 82803; 83540; 83550; 83605; 83735; 83880; 84100; 84145; 84439; 84443; 84484; 85014; 85018; 85025; 86850; 86900; 86901; 86923; 87040; 87077; 87086; 87186; 93005; 93010; 93306; 93971; 94640; 94660; 94664; 94760; 94762; 96365; 96375; 97116; 97161; 97530; 99285-25; A9270; C1751; J0612; J0696; J1630; J1650; J1938; J2060; J2470; J2543; J2916; J2919; J3411; J3475; J3480; J7050; J7060; J7120; J7512; P9016; P9612; Q9967

== ENCOUNTER 2025-03-01 19:53 | Observation (INO) | payer OTHER ==
[~2025-03-01] VITALS: Ht 162.6 cm; Wt 47.6 kg
[~2025-03-01 19:53] MED LIST changes: +AIRDUO DIGIHAL1 EAC2 INH; +FEROSUL325 M1 PO; +FURO20 PO; +JARDIANCE10 MG PO; +K-Dur20 MEQ PO; +METO50ER PO; +ONE DAILY ESS400 MCG PO; +PANT40 PO; +SPIR25 PO; +Seroquel Xr50 MG PO; +VISBIOME 112.51 EACH PO; +VITAMIN B-1100 MG PO
[2025-03-01 20:28] LABS: BASOPHILS ABSOLUTE AUTO 0.09 K/mm3 (0.00-0.23); BASOPHILS PERCENT AUTO 0 % (0-2); EOSINOPHILS ABSOLUTE AUTO 0.27 K/mm3 (0.00-0.68); EOSINOPHILS PERCENT AUTO 1 % (0-6); Hematocrit 37.1 % (33.0-51.0); Hemoglobin 12.0 g/dL (11.5-16.0); IMMATURE GRAN ABSOLUTE AUTO 1.14 K/mm3 (0.00-0.10); IMMATURE GRAN PERCENT AUTO 5 % (0-1); LYMPHOCYTES ABSOLUTE AUTO 2.15 K/mm3 (0.84-5.20); LYMPHOCYTES PERCENT AUTO 10 % (21-46); MONOCYTES ABSOLUTE AUTO 1.76 K/mm3 (0.16-1.47); MONOCYTES PERCENT AUTO 8 % (4-13); Mean Corpuscular HGB Conc 32.3 g/dL (31.5-36.5); Mean Corpuscular Volume 90 fL (80-100); NEUTROPHILS ABSOLUTE AUTO 15.95 K/mm3 (1.96-9.15); NEUTROPHILS PERCENT AUTO 75 % (41-73); NRBC ABSOLUTE 0.00 K/mm3 (0.00-0.02); NRBC Auto 0.0 /100 WBC (0.0-0.2); Platelet Count 378 K/mm3 (150-400); RDW Coefficient Variation 18.1 % (11.7-14.2); RDW Standard Deviation 56.0 fL (35.1-46.3)
[2025-03-01] MEDS ORDERED: NS 1,000 ML IV SCH ×2 (20:35→23:00)
[2025-03-01 21:33] LABS: Alanine Aminotransfer (ALT/SGP 57.0 U/L (12-78); Albumin, Blood 2.8 g/dL (3.4-5.0); Albumin/Globulin Ratio 0.9 (0.8-1.8); Anion Gap 7.0 mmol/L (3-11); Aspartate Aminotrans (AST/SGOT 30.0 U/L (12-37); Bilirubin, Total 0.6 mg/dL (0.1-1.0); Blood Urea Nitrogen 19.0 mg/dL (8-24); CO2, Blood 38.0 mmol/L (21-32); Calcium, Blood 8.2 mg/dL (8.5-10.1); Chloride, Blood 91.0 mmol/L (98-108); Creatinine, Blood 0.65 mg/dL (0.40-1.00); Globulin, Blood 3.2 g/dL (2.2-4.0); Glucose, Blood 123.0 mg/dL (70-99); Potassium, Blood 4.1 mmol/L (3.5-5.5); Sodium, Blood 132.0 mmol/L (136-145); Total Protein, Blood 6.0 g/dL (6.4-8.2)
[2025-03-01 22:37] LABS: Source, Urine Clean Catch
[2025-03-01 22:45] LABS: Bilirubin, Urine Neg (Neg); Glucose Qualitative, Urine 2+ (Neg); Ketones, Urine Neg (Neg); Leukocyte Esterase, Urine Neg (Neg); Protein, Urine 1+ (Neg); Specific Gravity, Urine 1.015 (1.003-1.022); Urobilinogen, Urine NORM (Normal)
[2025-03-01 23:13] LABS: Color, Urine Yellow (P-Yellow)
[2025-03-01 23:14] LABS: Red Blood Cells, Urine 0-2 /hpf (0-2); White Blood Cells, Urine 0-2 /hpf (0-5); Yeast/Fungi Urine Few /hpf
[2025-03-02 00:08] LABS: BASOPHILS ABSOLUTE AUTO 0.04 K/mm3 (0.00-0.23); BASOPHILS PERCENT AUTO 0 % (0-2); EOSINOPHILS ABSOLUTE AUTO 0.18 K/mm3 (0.00-0.68); EOSINOPHILS PERCENT AUTO 1 % (0-6); Hematocrit 32.3 % (33.0-51.0); Hemoglobin 10.2 g/dL (11.5-16.0); IMMATURE GRAN ABSOLUTE AUTO 0.38 K/mm3 (0.00-0.10); IMMATURE GRAN PERCENT AUTO 3 % (0-1); LYMPHOCYTES ABSOLUTE AUTO 1.23 K/mm3 (0.84-5.20); LYMPHOCYTES PERCENT AUTO 9 % (21-46); MONOCYTES ABSOLUTE AUTO 1.03 K/mm3 (0.16-1.47); MONOCYTES PERCENT AUTO 8 % (4-13); Mean Corpuscular HGB Conc 31.6 g/dL (31.5-36.5); Mean Corpuscular Volume 91 fL (80-100); NEUTROPHILS ABSOLUTE AUTO 10.72 K/mm3 (1.96-9.15); NEUTROPHILS PERCENT AUTO 79 % (41-73); NRBC ABSOLUTE 0.00 K/mm3 (0.00-0.02); NRBC Auto 0.0 /100 WBC (0.0-0.2); Platelet Count 298 K/mm3 (150-400); RDW Coefficient Variation 17.8 % (11.7-14.2); RDW Standard Deviation 57.1 fL (35.1-46.3)
[2025-03-02 01:39] LABS: Hematocrit 32.1 % (33.0-51.0); Hemoglobin 10.1 g/dL (11.5-16.0)
[2025-03-02 01:41] LABS: pH Blood Venous 7.42 (7.34-7.37)
[2025-03-02] MEDS ORDERED: FLU VACC TS2025(65UP)/MF59C/PF 45 MCG/0.5 ML SYRINGE IM SCH (02:35)
[2025-03-02] MEDS ORDERED: NS 500 ML IV SCH (02:35)
[2025-03-02 03:21] LABS: Campylobacter Sp Not Detected (NOT DETECT); E. Coli O157 Not Detected (NOT DETECT); Enteroaggregative E. coli-EAEC Not Detected (NOT DETECT); Enteropathogenic E. coli-EPEC Not Detected (NOT DETECT); Enterotoxigenic E. coli-ETEC Not Detected (NOT DETECT); Salmonella Sp Not Detected (NOT DETECT); Shiga Toxin-prod E. coli-STEC Not Detected (NOT DETECT); Shigella/Enteroin E. coli-EIEC Not Detected (NOT DETECT); Vibrio Sp Not Detected (NOT DETECT)
[2025-03-02 03:23] LABS: U Amphetamine Screen Not Detected; U Barbiturate Screen Not Detected; U Benzodiazapine Screen Not Detected; U Buprenorphine Screen Not Detected; U Cannabinoids Screen DETECTED; U Cocaine Screen Not Detected; U Methadone Screen Not Detected; U Methamphetamine Screen Not Detected; U Opiates Screen Not Detected; U Oxycodone Screen Not Detected; U Phencyclidine Screen Not Detected
[2025-03-02 03:35] VITALS: BP 112/65
--- NOTE | 2025-03-02 05:53 | NUR ---
SHIFT SUMMARY; PATIENT SLEEPING AFTER ADMIT, NO BM'S, C/O HEADACHE CALLED HOSPITALIST FOR TYLENOL ORDER.
[2025-03-02] MEDS ORDERED: Albuterol 2.5 MG/3 ML VIAL INH PRN (05:55)
[2025-03-02 07:45] VITALS: BP 140/90
[2025-03-02] MEDS ORDERED: Ipratropium/Albuterol SulF 2.5-0.5MG/3 ML Amp INH PRN (08:15)
[2025-03-02] MEDS ORDERED: Formoterol/Mometasone MDI 5/200 mcg 13 GM INH SCH (08:35)
[2025-03-02] MEDS ORDERED: Tiotropium Bromide 2.5 MCG/ACT MIST INHAL (10 ACT/4 GM) INH SCH (08:35)
[2025-03-02] MEDS ORDERED: Lactobacil 2-S.Thermo-Bifido 1 1 Cap PO SCH (09:00)
[2025-03-02] MEDS ORDERED: Enoxaparin 40 MG/0.4 ML SYR SC SCH (09:00)
[2025-03-02 10:04] LABS: BASOPHILS ABSOLUTE AUTO 0.02 K/mm3 (0.00-0.23); BASOPHILS PERCENT AUTO 0 % (0-2); EOSINOPHILS ABSOLUTE AUTO 0.18 K/mm3 (0.00-0.68); EOSINOPHILS PERCENT AUTO 1 % (0-6); Hematocrit 31.7 % (33.0-51.0); Hemoglobin 10.0 g/dL (11.5-16.0); IMMATURE GRAN ABSOLUTE AUTO 0.61 K/mm3 (0.00-0.10); IMMATURE GRAN PERCENT AUTO 5 % (0-1); LYMPHOCYTES ABSOLUTE AUTO 1.30 K/mm3 (0.84-5.20); LYMPHOCYTES PERCENT AUTO 10 % (21-46); MONOCYTES ABSOLUTE AUTO 0.83 K/mm3 (0.16-1.47); MONOCYTES PERCENT AUTO 7 % (4-13); Mean Corpuscular HGB Conc 31.5 g/dL (31.5-36.5); Mean Corpuscular Volume 93 fL (80-100); NEUTROPHILS ABSOLUTE AUTO 9.85 K/mm3 (1.96-9.15); NEUTROPHILS PERCENT AUTO 77 % (41-73); NRBC ABSOLUTE 0.00 K/mm3 (0.00-0.02); NRBC Auto 0.0 /100 WBC (0.0-0.2); Platelet Count 316 K/mm3 (150-400); RDW Coefficient Variation 18.3 % (11.7-14.2); RDW Standard Deviation 58.5 fL (35.1-46.3)
[2025-03-02 10:21] LABS: Alanine Aminotransfer (ALT/SGP 50.0 U/L (12-78); Albumin, Blood 2.4 g/dL (3.4-5.0); Albumin/Globulin Ratio 0.9 (0.8-1.8); Anion Gap 6.0 mmol/L (3-11); Aspartate Aminotrans (AST/SGOT 33.0 U/L (12-37); Bilirubin, Total 0.3 mg/dL (0.1-1.0); Blood Urea Nitrogen 12.0 mg/dL (8-24); CO2, Blood 34.0 mmol/L (21-32); Calcium, Blood 7.7 mg/dL (8.5-10.1); Chloride, Blood 98.0 mmol/L (98-108); Creatinine, Blood 0.45 mg/dL (0.40-1.00); Globulin, Blood 2.8 g/dL (2.2-4.0); Glucose, Blood 154.0 mg/dL (70-99); Magnesium, Blood 1.6 mg/dL (1.6-2.4); Potassium, Blood 4.3 mmol/L (3.5-5.5); Sodium, Blood 134.0 mmol/L (136-145); Total Protein, Blood 5.2 g/dL (6.4-8.2)
[2025-03-02] MEDS ORDERED: DIPATR PO (13:57)
--- NOTE | 2025-03-02 15:43 | NUR ---
PT DISCHARGED TO HOME. ALL VALUABLES RETURNED AND SENT HOME WITH THE PT. DISCHARGE INSTRUCTIONS PROVIDED AND EDUCATED ON AT TIME OF DISCHARGE.
[2025-03-04 16:46] LABS: CK TOTAL 39 U/L (26-192); CK-BB 0 % (0-0); CK-MACRO TYPE I 0 % (0-0); CK-MACRO TYPE II 0 % (0-0); CK-MB 0 % (0-4); CK-MM 100 % (96-100)
== END 2025-03-02 14:22 | disposition home or self-care (01) ==
LOC: ER 19:53 → ERHOLD 19:54 → MEDS 03-02 03:31 → ENPENDDIS 03-02 12:29 → MEDS 03-02 14:22
PROVIDERS: Emergency Medicine; Physician Assistant; Student in an Organized Health Care Education/Training Program; ADMIT Student in an Organized Health Care Education/Training Program
DX: R19.7 Diarrhea, unspecified (principal); E87.1 Hypo-osmolality and hyponatremia; E86.0 Dehydration; D72.829 Elevated white blood cell count, unspecified; K20.90 Esophagitis, unspecified without bleeding; I11.0 Hypertensive heart disease with heart failure; I50.22 Chronic systolic (congestive) heart failure; J44.9 Chronic obstructive pulmonary disease, unspecified; D63.8 Anemia in other chronic diseases classified elsewhere; G89.4 Chronic pain syndrome; F15.10 Other stimulant abuse, uncomplicated; F17.210 Nicotine dependence, cigarettes, uncomplicated; Z79.899 Other long term (current) drug therapy; Z88.1 Allergy status to other antibiotic agents; Z88.5 Allergy status to narcotic agent; Z88.8 Allergy status to other drugs, medicaments and biological substances; Z91.038 Other insect allergy status
CPT/HCPCS: 51701; 51798; 71045; 80053; 81001; 82550; 82552; 82803; 83605; 83735; 83880; 85014; 85018; 85025; 87507; 93005; 93010; 94640; 94664; 96360-59; 96361-59; 96372; 99285-25; A6590; A9270; G0378; J1650; J7030

== ENCOUNTER 2025-03-05 15:43 | Observation (INO) | payer OTHER ==
[~2025-03-05] VITALS: Ht 157.5 cm; Wt 45.3 kg
[~2025-03-05 15:43] MED LIST changes: +DIPATR PO
[2025-03-05] MEDS ORDERED: NS 500 ML IV SCH (19:00)
[2025-03-05] MEDS ORDERED: Ondansetron HCl 2 MG / ML 2ML Vial IV ONE (19:00)
[2025-03-05 20:07] LABS: Hematocrit 25.2 % (33.0-51.0); Hemoglobin 8.1 g/dL (11.5-16.0); Mean Corpuscular HGB Conc 32.1 g/dL (31.5-36.5); Mean Corpuscular Volume 92 fL (80-100); NRBC ABSOLUTE 0.00 K/mm3 (0.00-0.02); NRBC Auto 0.0 /100 WBC (0.0-0.2); Platelet Count 254 K/mm3 (150-400); RDW Coefficient Variation 19.2 % (11.7-14.2); RDW Standard Deviation 63.6 fL (35.1-46.3)
[2025-03-05 20:52] LABS: BAND PERCENT MAN 2 % (0-8); BASOPHILS ABSOLUTE MAN 0.00 K/mm3 (0.00-0.23); BASOPHILS PERCENT MAN 0 % (0-2); EOSINOPHILS ABSOLUTE MAN 0.00 K/mm3 (0.00-0.68); EOSINOPHILS PERCENT MAN 0 % (0-6); LYMPHOCYTES ABSOLUTE MAN 0.66 K/mm3 (0.84-5.20); LYMPHOCYTES PERCENT MAN 2 % (21-46); MONOCYTES ABSOLUTE MAN 0.66 K/mm3 (0.16-1.47); MONOCYTES PERCENT MAN 2 % (4-13); NEUTROPHILS ABSOLUTE MAN 31.74 K/mm3 (1.96-9.15); SEG NEUTROPHILS PERCENT MAN 94 % (41-73)
[2025-03-05] MEDS ORDERED: Milk 150ML/Molasses 150ML (300ML Total) PR ONE (21:00)
[2025-03-05 21:07] LABS: Influenza A, PCR NEGATIVE (NEGATIVE); Influenza B, PCR NEGATIVE (NEGATIVE); Resp Syncytial Virus, PCR NEGATIVE (NEGATIVE); SARS-Cov-2 (COVID-19) PCR, MMC NEGATIVE (NEGATIVE)
[2025-03-05 21:46] LABS: Magnesium, Blood 2.0 mg/dL (1.6-2.4)
[2025-03-05 21:50] LABS: Alanine Aminotransfer (ALT/SGP 34.0 U/L (12-78); Albumin, Blood 2.6 g/dL (3.4-5.0); Albumin/Globulin Ratio 0.7 (0.8-1.8); Anion Gap 10.0 mmol/L (3-11); Aspartate Aminotrans (AST/SGOT 26.0 U/L (12-37); Bilirubin, Total 1.5 mg/dL (0.1-1.0); Blood Urea Nitrogen 23.0 mg/dL (8-24); CO2, Blood 31.0 mmol/L (21-32); Calcium, Blood 8.6 mg/dL (8.5-10.1); Chloride, Blood 87.0 mmol/L (98-108); Creatinine, Blood 0.91 mg/dL (0.40-1.00); Globulin, Blood 3.8 g/dL (2.2-4.0); Glucose, Blood 130.0 mg/dL (70-99); Potassium, Blood 5.9 mmol/L (3.5-5.5); Sodium, Blood 122.0 mmol/L (136-145); Total Protein, Blood 6.4 g/dL (6.4-8.2)
[2025-03-05] MEDS ORDERED: Albuterol 2.5 MG/3 ML VIAL INH SCH (21:55)
[2025-03-05] MEDS ORDERED: Insulin Regular 100 Unit/ML 1ML Dose IV ONE (21:55)
[2025-03-05 22:15] LABS: Source, Urine Fem Cath
[2025-03-05] MEDS ORDERED: Ondansetron HCl 2 MG / ML 2ML Vial IV PRN (22:15)
[2025-03-05] MEDS ORDERED: FLU VACC TS2025(65UP)/MF59C/PF 45 MCG/0.5 ML SYRINGE IM SCH (22:15)
[2025-03-05 22:21] LABS: Bilirubin, Urine Neg (Neg); Glucose Qualitative, Urine Neg (Neg); Ketones, Urine Neg (Neg); Leukocyte Esterase, Urine 1+ (Neg); Protein, Urine 2+ (Neg); Specific Gravity, Urine 1.010 (1.003-1.022); Urobilinogen, Urine NORM (Normal)
[2025-03-05 22:29] LABS: Color, Urine Yellow (P-Yellow)
[2025-03-05 23:05] LABS: Osmolality, Serum 275.0 mos/KG (275-300)
[2025-03-05 23:51] VITALS: BP 126/73
[2025-03-06] MEDS ORDERED: NS 500 ML IV SCH (01:45)
[2025-03-06] MEDS ORDERED: Albuterol 2.5 MG/3 ML VIAL INH PRN (02:15)
[2025-03-06 02:39] VITALS: BP 132/74
--- NOTE | 2025-03-06 04:49 | NUR ---
ASSUMED CARE @6817 PT ARRIVED TO [facility] W/ SOAKED BRIEF AND PUREWICK IN PLACE. CHANGED ATTENDS AND GOT PT TO [facility] TO URINATE. PT RECENTLY ADMITTED FOR RESPIRATORY FAILURE/UROSEPSIS. URINALYSIS COLLECTED. CALLED FOR TUMS AND ATIVAN ORDER PER PT REQUEST. PT IS VERY ANXIOUS AND WITHDRAWN WITH FLIGHT OF IDEAS. HAS BROUGHT UP TO THIS RN SEVERAL TIMES THAT HER SON RECENTLY (4YRS AGO) PASSED FROM A [facility] OD. PT IS CONSTANTLY REQUESTING MEDICATIONS FOR UPSET STOMACH MEDICATED AVAILABLE PER JUN. STARTED ON 500ML NS.
[2025-03-06 06:47] LABS: BASOPHILS ABSOLUTE AUTO 0.12 K/mm3 (0.00-0.23); BASOPHILS PERCENT AUTO 0 % (0-2); EOSINOPHILS ABSOLUTE AUTO 0.00 K/mm3 (0.00-0.68); EOSINOPHILS PERCENT AUTO 0 % (0-6); Hematocrit 32.3 % (33.0-51.0); Hemoglobin 10.9 g/dL (11.5-16.0); IMMATURE GRAN ABSOLUTE AUTO 0.37 K/mm3 (0.00-0.10); IMMATURE GRAN PERCENT AUTO 1 % (0-1); LYMPHOCYTES ABSOLUTE AUTO 0.79 K/mm3 (0.84-5.20); LYMPHOCYTES PERCENT AUTO 2 % (21-46); MONOCYTES ABSOLUTE AUTO 2.02 K/mm3 (0.16-1.47); MONOCYTES PERCENT AUTO 5 % (4-13); Mean Corpuscular HGB Conc 33.7 g/dL (31.5-36.5); NEUTROPHILS ABSOLUTE AUTO 34.30 K/mm3 (1.96-9.15); NEUTROPHILS PERCENT AUTO 91 % (41-73); NRBC ABSOLUTE 0.00 K/mm3 (0.00-0.02); NRBC Auto 0.0 /100 WBC (0.0-0.2); Platelet Count 250 K/mm3 (150-400); RDW Coefficient Variation 19.4 % (11.7-14.2); RDW Standard Deviation 60.8 fL (35.1-46.3)
[2025-03-06 06:51] LABS: Mean Corpuscular Volume 87 fL (80-100)
[2025-03-06 07:54] VITALS: BP 111/71
[2025-03-06] MEDS ORDERED: Enoxaparin 40 MG/0.4 ML SYR SC SCH (09:00)
[2025-03-06 10:55] LABS: U Amphetamine Screen Not Detected; U Cannabinoids Screen DETECTED
[2025-03-06 10:56] LABS: U Barbiturate Screen Not Detected; U Benzodiazapine Screen Not Detected; U Buprenorphine Screen Not Detected; U Cocaine Screen Not Detected; U Methadone Screen Not Detected; U Methamphetamine Screen Not Detected; U Opiates Screen Not Detected; U Oxycodone Screen Not Detected; U Phencyclidine Screen Not Detected
[2025-03-06 11:07] LABS: Magnesium, Blood 2.2 mg/dL (1.6-2.4)
[2025-03-06 11:11] LABS: Alanine Aminotransfer (ALT/SGP 31.0 U/L (12-78); Albumin, Blood 2.3 g/dL (3.4-5.0); Albumin/Globulin Ratio 0.6 (0.8-1.8); Anion Gap 10.0 mmol/L (3-11); Aspartate Aminotrans (AST/SGOT 26.0 U/L (12-37); Bilirubin, Total 0.8 mg/dL (0.1-1.0); Blood Urea Nitrogen 20.0 mg/dL (8-24); CO2, Blood 33.0 mmol/L (21-32); Calcium, Blood 8.8 mg/dL (8.5-10.1); Chloride, Blood 87.0 mmol/L (98-108); Creatinine, Blood 0.81 mg/dL (0.40-1.00); Globulin, Blood 4.1 g/dL (2.2-4.0); Glucose, Blood 193.0 mg/dL (70-99); Potassium, Blood 4.7 mmol/L (3.5-5.5); Sodium, Blood 125.0 mmol/L (136-145); Total Protein, Blood 6.4 g/dL (6.4-8.2)
[2025-03-06 11:43] VITALS: BP 117/75
[2025-03-06] MEDS ORDERED: Ipratropium/Albuterol SulF 2.5-0.5MG/3 ML Amp INH PRN (15:50)
[2025-03-06] MEDS ORDERED: Formoterol/Mometasone MDI 5/200 mcg 13 GM INH SCH (16:00)
[2025-03-06] MEDS ORDERED: Tiotropium Bromide 2.5 MCG/ACT MIST INHAL (10 ACT/4 GM) INH SCH (16:05)
--- NOTE | 2025-03-06 19:11 | NUR ---
SHIFT SUMMARY PATIENT ALERT AND ORIENTED X4. PATIENT MAKE NEEDS KNOWN. PLEASANT AND RECEPTIVE DURING CARE. NO ACUTE CHANGES THROUGHOUT SHIFT. VITAL SIGNS STABLE. COMPLAINT OF PAIN MEDICATED PER EMAR. PATIENT ON 2L/NC. SELF-REPOSITIONED DURING SHIFT. BED LOCKED AND IN LOWEST POSITION. CALL LIGHT WITHIN REACH.
[2025-03-06 20:07] VITALS: BP 114/79
[2025-03-07] VITALS (17 sets, daily range): BP systolic 70–121; BP diastolic 44–95
[2025-03-07] MEDS ORDERED: NS 500 ML IV ONE ×2 (01:00→03:00)
--- NOTE | 2025-03-07 03:20 | NUR ---
SHIFT SUMMARY: PT AOX4. PT ON TELEMETRY, RATE IS TACHYCARDIC IN 100-110S THIS SHIFT. PT BP ALSO DROPPED TO 80S/50S THIS SHIFT. MD NOTIFIED. 2X 500CC BOLUSES ORDERED. MOST RECENT BP IS 96/60. PT DENIES ANY HEADACHE, CP, OR DIZZINESS. CALL LIGHT IS WITHIN REACH. BED IS LOW AND LOCKED.
[2025-03-07 05:12] LABS: Hematocrit 27.6 % (33.0-51.0); Hemoglobin 9.0 g/dL (11.5-16.0); Mean Corpuscular HGB Conc 32.6 g/dL (31.5-36.5); Mean Corpuscular Volume 90 fL (80-100); NRBC ABSOLUTE 0.00 K/mm3 (0.00-0.02); NRBC Auto 0.0 /100 WBC (0.0-0.2); Platelet Count 226 K/mm3 (150-400); RDW Coefficient Variation 20.0 % (11.7-14.2); RDW Standard Deviation 65.2 fL (35.1-46.3)
[2025-03-07 05:43] LABS: BAND PERCENT MAN 22 % (0-8); BASOPHILS ABSOLUTE MAN 0.00 K/mm3 (0.00-0.23); BASOPHILS PERCENT MAN 0 % (0-2); EOSINOPHILS ABSOLUTE MAN 0.00 K/mm3 (0.00-0.68); EOSINOPHILS PERCENT MAN 0 % (0-6); LYMPHOCYTES ABSOLUTE MAN 0.15 K/mm3 (0.84-5.20); LYMPHOCYTES PERCENT MAN 1 % (21-46); MONOCYTES ABSOLUTE MAN 0.76 K/mm3 (0.16-1.47); MONOCYTES PERCENT MAN 5 % (4-13); NEUTROPHILS ABSOLUTE MAN 14.33 K/mm3 (1.96-9.15); SEG NEUTROPHILS PERCENT MAN 72 % (41-73)
[2025-03-07] MEDS ORDERED: NS 500 ML IV SCH (06:00)
[2025-03-07 06:04] LABS: Alanine Aminotransfer (ALT/SGP 21.0 U/L (12-78); Albumin, Blood 2.1 g/dL (3.4-5.0); Albumin/Globulin Ratio 0.6 (0.8-1.8); Anion Gap 11.0 mmol/L (3-11); Aspartate Aminotrans (AST/SGOT 18.0 U/L (12-37); Bilirubin, Total 0.7 mg/dL (0.1-1.0); Blood Urea Nitrogen 23.0 mg/dL (8-24); CO2, Blood 30.0 mmol/L (21-32); Calcium, Blood 8.6 mg/dL (8.5-10.1); Chloride, Blood 90.0 mmol/L (98-108); Creatinine, Blood 0.95 mg/dL (0.40-1.00); Globulin, Blood 3.6 g/dL (2.2-4.0); Glucose, Blood 145.0 mg/dL (70-99); Magnesium, Blood 2.1 mg/dL (1.6-2.4); Potassium, Blood 5.1 mmol/L (3.5-5.5); Sodium, Blood 126.0 mmol/L (136-145); Total Protein, Blood 5.7 g/dL (6.4-8.2)
[2025-03-07] MEDS ORDERED: Polyethylene Glycol 3350 17 gm PO SCH (09:00)
[2025-03-07] MEDS ORDERED: DOCU100 PO (12:17)
[2025-03-07] MEDS ORDERED: BISA10S PR (12:17)
[2025-03-07] MEDS ORDERED: MIRALAX17 GM PO (12:18)
[2025-03-07] MEDS ORDERED: METAMUCIL POWD798 GM PO (12:20)
[2025-03-07] MEDS ORDERED: SENN187 PO (12:20)
--- NOTE | 2025-03-07 12:58 | NUR ---
CONTACTED DR REGARDING SENDING PT HOME ON ABX FOR POSITIVE MRSA CX IN URINE. STATED THE MRSA IS SKIN CONTAMINANT AND PATIENT IS COLONIZED. NO NEW ORDERS.
--- NOTE | 2025-03-07 14:21 | NUR ---
DISCHARGE SUMMARY PATIENT DISCHARGED HOME WITH DAUGHTER TO DRIVE. IV REMOVED WITHOUT COMPLICATION. PATIENT ON 3 LITERS NC, BASELINE 2 LITERS. A/O X3-4. NO BM THIS SHIFT, PASSING GAS. CONTINUES TO REPORT ABDOMINAL PAIN. MEDS FAXED TO [facility] PER PATIENT REQUEST. DR FERRELL CALLED REGARDING LOW BP AND HR SUSTAINING 130'S X 2 EPISODES. METOPROLOL HELD THIS AM PER PARAMETERS, [facility] MADE AWARE. OKAYED AM DOSE TO BE GIVEN PRIOR TO DISCHARGE GIVEN THE ELEVATED HR LATER IN THE SHIFT. NURSES CONVEYED PATIENT'S CONCERN WITH GOING HOME TO [facility], NO NEW ORDERS RECEIVED.
--- NOTE | 2025-03-07 15:35 | NUR ---
DURING NPPR DR. FERRELL INFORMED PATIENT THAT SHE WILL BE DISCHARGING TODAY. THIS NURSE SHOWED CONCERN ABOUT PATIENTS LOW BP SINCE THE NIGHT BEFORE. PROVIDER STATES HE IS AWARE AND THAT IT IS PATIENT S BASELINE. THIS NURSE ALSO NOTIFIED PROVIDER ABOUT PTS MICROBIOLOGY RESULT AND STATES SHE IS OKAY TO DISCHARGE. NO NEW ORDERS. AROUND [address] [employer] NOTIFIED THIS RN ABOUT PATIENT S HR IN THE 130 2 FOR 10 MINS. CHECKED PATIENT S VITALS BP 118/44, HR 125. NOTIFIED DR. FERRELL ABOUT PATIENT HAVING 2 EPISODE OF HR IN THE 120 S - 130 S. PROVIDER STATES THIS IS A NORM FOR PATIENT HAVING EPISODES OF ELEVATED HR IN THE 120 S AND 130 S. PROVIDER ALSO STATES THERE S NO REASON FOR PATIENT TO STAY LONGER AT THE HOSPITAL SINCE PATIENT DOES NOT HAVE ACTIVE INFECTION AND NO S/SX OF INFECTION. PROVIDER STATED THAT PATIENT S URINE CULTURE IS MOST LIKELY CONTAMINATED. THIS NURSE ASKED PROVIDER IF METOPROLOL CAN BE GIVEN TO HER BEFORE DISCHARGE TO CONTROL HR SINCE PATIENT S BP IS 118/44 AND HR 125 AND WAS HELD IN THE AM. PROVIDER OKAY TO GIVE.
== END 2025-03-07 14:10 | disposition home or self-care (01) ==
LOC: ER 15:43 → MEDS 15:44
PROVIDERS: Emergency Medicine; Internal Medicine; ADMIT Student in an Organized Health Care Education/Training Program
DX: K59.00 Constipation, unspecified (principal); E87.1 Hypo-osmolality and hyponatremia; E87.5 Hyperkalemia; K52.9 Noninfective gastroenteritis and colitis, unspecified; I11.0 Hypertensive heart disease with heart failure; I50.22 Chronic systolic (congestive) heart failure; J96.10 Chronic respiratory failure, unspecified whether with hypoxia or hypercapnia; Z88.5 Allergy status to narcotic agent; Z88.8 Allergy status to other drugs, medicaments and biological substances; Z91.038 Other insect allergy status; F17.210 Nicotine dependence, cigarettes, uncomplicated; Z79.899 Other long term (current) drug therapy
CPT/HCPCS: 36415; 51701; 51798; 71045; 74177; 80053; 81001; 82947; 83605; 83690; 83735; 83880; 83930; 83935; 84300; 85025; 87040; 87077; 87086; 87147; 87186; 87637; 93005; 93010; 94640; 94664; 94760; 96361; 96372; 96374; 96375; 96376; 99285-25; A6590; A9270; G0378; J1650; J1815; J1938; J2405; J7030; J7040; Q9967